=== PATIENT | female | born 1995 | race Caucasian/White ===

== ENCOUNTER 2020-02-22 15:07 | Emergency (ER) | payer OTHER, SELFPAY ==
[2020-02-22 15:24] VITALS: BP 105/74; PULSE 84; RESP 19; TEMP 36.6; O2SAT 98; BMI 23.3
--- NOTE | 2020-02-22 15:33 | HMH.EDUTC ---
[facility] [place] Disposition Clinical Impression: Bacterial vaginosis Disposition: Home, Self-Care Condition on Discharge: Good Instructions: Bacterial Vaginosis, DI for Bacterial Vaginosis, Metronidazole Vaginal Additional Instructions: Use medication as prescribed FOllow up with family doctor if no improvment or any worsening of symptoms in the next 48-72 hours Return if needed Straight to ER if any life threatening symptoms Prescriptions: metroNIDAZOLE [Metrogel-Vaginal] 1 applicatio VG DAILY 5 Days #1 tube Transmission Status: Pending to [facility] Referrals: Kip Bingham MD [Primary Care Provider] - As needed Time of Disposition: 15:38 Medical Decision Making - Harlan Inquiry Pt receiving controlled substance: No Harlan was queried for this patient: No Vital Signs: 02/22/20 15:24 Temperature 97.9 F Temperature Source Temporal Artery Scan Pulse Rate [Right Brachial] 84 Respiratory Rate 19 Blood Pressure [Right Arm] 105/74 L Blood Pressure Mean [Right Arm] 84 Blood Pressure Source [Right Arm] Automatic Cuff Blood Pressure Position [Right Arm] Sitting 02 Sat by Pulse Oximetry 98 Oxygen Delivery Method Room Air Medical Decision Narrative: Patient requested Metroidazole vaginal gel instead of oral due to making her stomach upset [facility] [place] HPI - General Stated complaint: Personal Time Seen by Provider: 02/22/20 15:33 Mode of Arrival: Ambulatory Source of Information: Patient Limitations: No Limitations Description of Symptoms (Recalled from Triage Doc. by RN): possible bacterial vaginal infection HEENT Symptoms (Recalled from RN notes): No Resp Symptoms (Recalled from RN notes): No Skin Symptoms (Recalled from RN notes): No MS Symptoms (Recalled from RN notes): No Functional Status (Recalled from RN notes): none - History of Present Illness Provider Complaint: Patient states thats she has a history of bacterail Vaginosis States that she has been having irritation in her vaginal areas for several days after changing soaps and noticed she had a fishy like odor with grayish colored discharge so she came in to get checked - Related Data Previous Rx's Medication Instructions Recorded metroNIDAZOLE [Metrogel-Vaginal] 1 applicatio VG DAILY 5 Days #1 02/22/20 tube Allergies Allergy/AdvReac Type Severity Reaction Status Date / Time No Known Allergies Allergy Verified 02/22/20 15:14 - Worker's Comp Is this a Worker's Comp case?: No [facility] History - Hepatitis A Screen Drug use history?: No High risk sexual behaviors?: No History of sexually transmitted infection?: No Currently employed?: No Childcare worker?: No Do you have indoor plumbing?: Yes Do you have electricity?: Yes Attestation statement:: This patient has been screened for Hepatitis A risk factors. I have reviewed the patient's past medical history: Yes Medical History: Denies:: Cancer, Diabetes Mellitus Type 1, Diabetes Mellitus Type 2, Internal Pacemaker, MRSA Other Surgeries: No: Pacemaker Amputation: No Fractures: No - Social History Smoking Status: Current every day smoker Tobacco Type: cigarettes # Packs/Day (cigarettes): 1 Alcohol Intake: never Occupational Status: employed ROS Obtained: Yes All systems reviewed & no additional complaints, Yes Systems reviewed as appropriate & no additional complaints - Constitutional Constitutional: Reports system reviewed and no additional complaints, except as docu - Cardiovascular Cardiovascular: Reports system reviewed and no additional complaints, except as docu - Respiratory Respiratory: Yes system reviewed and no additional complaints, except as docu - Gastrointestinal Gastrointestingal: Reports: system reviewed and no additional complaints, except as docu - Genitourinary Female Genitourinary: Reports vaginal discharge, Reports vaginal itching Physical Exam - General General appearance: alert, in no apparent distress - Respiratory Respiratory e
[2020-02-22 15:39] VITALS: BP 105/74; PULSE 84; RESP 18; TEMP 36.6; O2SAT 98
== END 2020-02-22 15:40 | disposition home or self-care (01) ==
PROVIDERS: Emergency Provider Nurse Practitioner; PCP Family Medicine
DX: N76.0 Acute vaginitis (principal)
CPT/HCPCS: 99201

== ENCOUNTER 2020-06-12 18:24 | Emergency (ER) | payer OTHER, SELFPAY ==
[2020-06-12 19:20] VITALS: BP 103/86; PULSE 69; RESP 19; TEMP 36.9; O2SAT 98; BMI 23.9
--- NOTE | 2020-06-12 19:32 | HMH.EDUTC ---
[facility] [place] Disposition Clinical Impression: Viral syndrome, Bronchitis Disposition: Home, Self-Care Condition on Discharge: Good Instructions: Acute Bronchitis, DI for Acute Bronchitis, DI for Viral Syndrome Prescriptions: Azithromycin [Z-Acosta 250mg Tab*] 250 mg PO UD DOSE PK #6 tab Transmission Status: Received by [facility] #[id number] Referrals: Kip Bingham MD [Primary Care Provider] - Forms: Work/School Release Medical Decision Making - Medical Records Medical records reviewed: No: I reviewed the patient's medical records. - Harlan Inquiry Pt receiving controlled substance: No Vital Signs: 06/12/20 19:20 06/12/20 19:58 Temperature 98.5 F 98.5 F Temperature Source Oral Pulse Rate 69 Pulse Rate [Right Brachial] 69 Respiratory Rate 19 19 Blood Pressure 103/86 L Blood Pressure [Right Arm] 103/86 L Blood Pressure Mean [Right Arm] 91 Blood Pressure Source [Right Arm] Automatic Cuff Blood Pressure Position [Right Arm] Sitting 02 Sat by Pulse Oximetry 98 Oxygen Delivery Method Room Air - Lab Data Lab results reviewed: Yes: I reviewed the patient's lab results. Lab Results 06/12/20 19:33: [facility] Negative Orders (Tests/Meds): ORDERS Category Date Time Status Covid-19 Nasal PCR Sendout Nic Routine Lab 06/12/20 19:07 Received [facility] [place] HPI - General Stated complaint: weakness,Diarrhea, want COVID test Time Seen by Provider: 06/12/20 19:25 Mode of Arrival: Ambulatory Source of Information: Patient Limitations: No Limitations Description of Symptoms (Recalled from Triage Doc. by RN): PATIENT C/O SORE THROAT, COUGH, FATIGUE, AND SOA X 2 DAYS. REQUESTING COVID TEST HEENT Symptoms (Recalled from RN notes): Yes Resp Symptoms (Recalled from RN notes): Yes Skin Symptoms (Recalled from RN notes): No MS Symptoms (Recalled from RN notes): No Functional Status (Recalled from RN notes): WNL - History of Present Illness Provider Complaint: She reports that she has had cough, chest congestion, nausea, sore throat, body aches and chilling for the past 2 days. She has been exposed to covid recently. She denies documented fever. - Related Data Previous Rx's Medication Instructions Recorded Azithromycin [Z-Acosta 250mg Tab*] 250 mg PO UD DOSE PK #6 tab 06/12/20 Allergies Allergy/AdvReac Type Severity Reaction Status Date / Time No Known Allergies Allergy Verified 02/23/20 09:39 - Worker's Comp Is this a Worker's Comp case?: No [facility] History - Hepatitis A Screen Drug use history?: No High risk sexual behaviors?: No History of sexually transmitted infection?: No Currently employed?: No Childcare worker?: No Do you have indoor plumbing?: Yes Do you have electricity?: Yes Attestation statement:: This patient has been screened for Hepatitis A risk factors. I have reviewed the patient's past medical history: Yes Medical History: Denies:: Cancer, Diabetes Mellitus Type 1, Diabetes Mellitus Type 2, Internal Pacemaker, MRSA Other Surgeries: No: Pacemaker Amputation: No Fractures: No - Social History Smoking Status: Current every day smoker Tobacco Type: cigarettes # Packs/Day (cigarettes): 1 Alcohol Intake: never Substance Use Type: denies use, marijuana (in the past; had serenity; never used it again; not since right out of high school) Occupational Status: other ROS Obtained: Yes All systems reviewed & no additional complaints - Constitutional Constitutional: Reports chills, Reports fever(s), Reports poor appetite, Reports malaise - Eyes Eyes: Reports system reviewed and no additional complaints, except as docu - ENT Ears, Nose, Mouth, and Throat: Denies dizziness, Denies otalgia, Reports sore throat - Cardiovascular Cardiovascular: Denies chest pain - Respiratory Respiratory: Yes chest congestion, Yes cough Physical Exam - General General appearance: alert, in no apparent distress - Head Head exam: atraumatic, normocephalic, norm
[2020-06-12 19:42] LABS: UTC Pregnancy Test, Urine Negative (Negative)
[2020-06-12 19:58] VITALS: BP 103/86; PULSE 69; RESP 19; TEMP 36.9; O2SAT 98
[2020-06-14 17:32] LABS: Covid-19 Nasal PCR Sendout Lex Not Detected
== END 2020-06-12 20:00 | disposition home or self-care (01) ==
PROVIDERS: Emergency Provider Nurse Practitioner Family; PCP Family Medicine
DX: B34.9 Viral infection, unspecified (principal); J40 Bronchitis, not specified as acute or chronic
CPT/HCPCS: 81025; 99201; U0004

== ENCOUNTER → 2020-07-10 20:23 | Outpatient (CLI) | payer OTHER, SELFPAY ==
[2020-07-10 21:03] LABS: Basophils # 0.1 K/mm3 (0-0.2); Basophils % 0.7 % (0.1-2.0); Eosinophils # 0.1 K/mm3 (0.0-0.4); Eosinophils % 1.3 % (0.1-12.0); Hematocrit 48.7 % (37.0-47.0); Hemoglobin 15.9 g/dL (12.2-16.2); Lymphocytes # 2.3 K/mm3 (0.7-4.5); Lymphocytes % 23.4 % (10-50); Mean Corpuscular HGB Conc 32.6 g/dL (31.8-35.4); Mean Corpuscular Hemoglobin 30.7 pg (27.0-31.2); Mean Corpuscular Volume 94.4 fl (81-99); Mean Platelet Volume 7.9 fl (7.4-10.4); Monocytes # 0.6 K/mm3 (0.1-1.0); Monocytes % 5.6 % (1.7-9.3); Neutrophils # 6.7 K/mm3 (1.8-7.8); Neutrophils % 68.8 % (37.0-80.0); Platelet Count 331 K/mm3 (142-424); Red Blood Count 5.16 M/mm3 (4.20-5.40); Red Cell Distribution Width 12.7 % (11.5-17.5); White Blood Count 9.7 K/mm3 (4.8-10.8)
[2020-07-12 09:45] LABS: Covid-19 Nasal PCR Sendout Lex NOT DETECTED
== END ==
PROVIDERS: PCP Family Medicine; Visit Provider Family Medicine
DX: Z03.818 Encounter for observation for suspected exposure to other biological agents ruled out (principal)
CPT/HCPCS: 36415; 85025; 87275; 87276; U0004

== ENCOUNTER 2020-08-28 11:47 | Emergency (ER) | payer OTHER, SELFPAY ==
[2020-08-28 12:20] VITALS: BP 111/79; PULSE 78; RESP 18; TEMP 36.6; O2SAT 98; BMI 24.3
--- NOTE | 2020-08-28 12:40 | HMH.EDUTC ---
[facility] [place] Disposition Clinical Impression: Positive test Disposition: Home, Self-Care Condition on Discharge: Good Instructions: Eating for Appropriate Weight Gain During , Common Discomforts and Bodily Changes During , Skin: Glowing, Stretching, Darkening, and More, Managing Symptoms of Additional Instructions: Call and make appointment with your OBGYN for further work up and evaluation Return if needed Straight to ER if any life threatening symptoms, spotting or bleeding Referrals: PCP,No [Primary Care Provider] - As needed Mohamud Pizano MD [Staff Physician] - Serina Mensah MD [Staff Physician] - Time of Disposition: 12:45 Medical Decision Making - Harlan Inquiry Pt receiving controlled substance: No Harlan was queried for this patient: No Vital Signs: 08/28/20 12:20 Temperature 97.8 F Temperature Source Oral Pulse Rate [Right Brachial] 78 Respiratory Rate 18 Blood Pressure [Right Arm] 111/79 Blood Pressure Mean [Right Arm] 89 Blood Pressure Source [Right Arm] Automatic Cuff Blood Pressure Position [Right Arm] Sitting 02 Sat by Pulse Oximetry 98 Oxygen Delivery Method Room Air [facility] [place] HPI - General Stated complaint: test Time Seen by Provider: 08/28/20 12:41 Mode of Arrival: Ambulatory Source of Information: Patient Limitations: No Limitations Description of Symptoms (Recalled from Triage Doc. by RN): PATIENT IS 19 DAYS LATE ON HER PERIOD AND IS REQUESTING A TEST HEENT Symptoms (Recalled from RN notes): No Resp Symptoms (Recalled from RN notes): No Skin Symptoms (Recalled from RN notes): No MS Symptoms (Recalled from RN notes): No Functional Status (Recalled from RN notes): WNL - History of Present Illness Provider Complaint: Patient state that she is about 19 days late on her period and took 3 home test and they was positive State that she wasnt sure if they was right so she came in to get one here to see if it was positive too - Related Data Previous Rx's Medication Instructions Recorded Azithromycin [Z-Aocsta 250mg Tab*] 250 mg PO UD DOSE PK #6 tab 06/12/20 Allergies Allergy/AdvReac Type Severity Reaction Status Date / Time No Known Allergies Allergy Verified 02/23/20 09:39 - Worker's Comp Is this a Worker's Comp case?: No [facility] History - Hepatitis A Screen Drug use history?: No High risk sexual behaviors?: No History of sexually transmitted infection?: No Currently employed?: No Childcare worker?: No Do you have indoor plumbing?: Yes Do you have electricity?: Yes Attestation statement:: This patient has been screened for Hepatitis A risk factors. I have reviewed the patient's past medical history: Yes Medical History: Denies:: Cancer, Diabetes Mellitus Type 1, Diabetes Mellitus Type 2, Internal Pacemaker, MRSA Other Surgeries: No: Pacemaker Amputation: No Fractures: No - Social History Smoking Status: Current every day smoker Tobacco Type: cigarettes # Packs/Day (cigarettes): 1 Alcohol Intake: never Substance Use Type: denies use, marijuana (in the past; had serenity; never used it again; not since right out of high school) Occupational Status: other ROS Obtained: Yes All systems reviewed & no additional complaints, Yes Systems reviewed as appropriate & no additional complaints - Constitutional Constitutional: Reports system reviewed and no additional complaints, except as docu, Denies body ache, Denies chills, Denies fever(s), Denies headache(s) - ENT Ears, Nose, Mouth, and Throat: Reports system reviewed and no additional complaints, except as docu - Cardiovascular Cardiovascular: Reports system reviewed and no additional complaints, except as docu - Respiratory Respiratory: Reports system reviewed and no additional complaints, except as docu - Gastrointestinal Gastrointestingal: Reports: system reviewed and no additional complaints, except as docu - Genitourinary Female Genitouri
[2020-08-28 12:50] VITALS: BP 111/79; PULSE 78; RESP 18; TEMP 36.6; O2SAT 98
[2020-08-28 20:25] LABS: UTC Pregnancy Test, Urine Positive (Negative)
== END 2020-08-28 12:52 | disposition home or self-care (01) ==
PROVIDERS: Emergency Provider Nurse Practitioner
DX: Z32.01 Encounter for pregnancy test, result positive (principal); F17.210 Nicotine dependence, cigarettes, uncomplicated
CPT/HCPCS: 81025; 99202; G0463

== ENCOUNTER → 2020-09-06 10:49 | Outpatient (CLI) | payer OTHER, MEDICAID, SELFPAY ==
--- NOTE | 2020-09-06 10:49 | US_ITS ---
PROCEDURE: US OB <= 14 WEEKS FETUS CLINICAL INDICATION: US OB TV before 14 weeks for DATES COMPARISON: No exams were available for comparison FINDINGS: An intrauterine gestational sac is present with a pole with a crown-rump length of 1.33cm correlating to gestational age of 7weeks 5days. heart tones are present with an FHR of 160bpm. Yolk sac is noted. There is a small left ovarian cyst at 12 mm. No cul-de-sac fluid. IMPRESSION: Live IUP at 7 weeks days Estimated due date by Ultrasound is 04/20/2021 Dictated by: Saroj Jenkins MD 09/06/2020 18:43 Saroj Jenkins MD in [place] 09/06/2020 18:43
== END ==
PROVIDERS: PCP Family Medicine; Visit Provider Nurse Practitioner Obstetrics & Gynecology
DX: O26.841 Uterine size-date discrepancy, first trimester (principal)
CPT/HCPCS: 76801

== ENCOUNTER 2020-09-27 20:45 | Emergency (ER) | payer OTHER, MEDICAID, SELFPAY ==
[2020-09-27 20:47] VITALS: BP 126/64; PULSE 92; RESP 16; TEMP 36.8; O2SAT 100; BMI 24.7
--- NOTE | 2020-09-27 21:04 | HMH.EDUTC ---
[facility] [place] Disposition Clinical Impression: Viral syndrome Qualifiers: Weeks of gestation: 10 weeks Qualified Code(s): Z3A.10 - 10 weeks gestation of Disposition: Home, Self-Care Condition on Discharge: Good Instructions: DI for Viral Syndrome, Preventing the Spread of Coronavirus Discharge Instructions Additional Instructions: Drink plenty of fluids. Take tylenol for pain or fever. Return if you begin to have difficulty breathing. Follow up with your regular doctor. FOLLOW UP WITH DR. PEREA SCHEDULED, UNLESS YOU ARE POSITIVE FOR COVID-19. IF YOU ARE PLEASE CALL DR. PEREA'S OFFICE TO LET HIM KNOW AYAAN. GO TO THE ER FOR ANY WORSENING SYMPTOMS Prescriptions: Promethazine HCl [Phenergan 25mg tab] 25 mg PO Q6H PRN #10 tab PRN Reason: Nausea And Vomiting Transmission Status: Pending to [id number] Referrals: Kip Bingham MD [Primary Care Provider] - Forms: Work/School Release Time of Disposition: 21:08 Medical Decision Making - Medical Records Medical records reviewed: No: I reviewed the patient's medical records. - Harlan Inquiry Pt receiving controlled substance: No Vital Signs: 09/27/20 20:47 Temperature 98.2 F Temperature Source Oral Pulse Rate [Right] 92 H Respiratory Rate 16 Blood Pressure [Right Arm] 126/64 Blood Pressure Mean [Right Arm] 84 Blood Pressure Source [Right Arm] Automatic Cuff Blood Pressure Position [Right Arm] Sitting 02 Sat by Pulse Oximetry 100 Oxygen Delivery Method Room Air Orders (Tests/Meds): ORDERS Category Date Time Status Covid-19 Nasal PCR ([facility]) Routine Lab 09/27/20 21:03 Ordered [facility] [place] HPI - General Stated complaint: 10 wk preg VILLAN[place]VA Time Seen by Provider: 09/27/20 21:00 Mode of Arrival: Ambulatory Source of Information: Patient Limitations: No Limitations HEENT Symptoms (Recalled from RN notes): No Resp Symptoms (Recalled from RN notes): No Skin Symptoms (Recalled from RN notes): No MS Symptoms (Recalled from RN notes): No Functional Status (Recalled from RN notes): na - History of Present Illness Provider Complaint: She states that she has been having and head ache, body ache and chills since yesterday evening. She has been exposed to covid-19. She denies any other symptoms. She is 10 weeks . - Related Data Previous Rx's Medication Instructions Recorded PNV 153-FA 400 mcg-om3 35 mg-dha 1 tab PO DAILY #30 tab 08/31/20 25 mg-epa 5 mg-fish oil chew tablet Promethazine HCl [Phenergan 25mg 25 mg PO Q6H PRN #10 tab 09/27/20 tab] Allergies Allergy/AdvReac Type Severity Reaction Status Date / Time No Known Allergies Allergy Verified 08/31/20 11:07 - Worker's Comp Is this a Worker's Comp case?: No [facility] History - Hepatitis A Screen Drug use history?: No High risk sexual behaviors?: No History of sexually transmitted infection?: No Currently employed?: No Childcare worker?: No Do you have indoor plumbing?: Yes Do you have electricity?: Yes Attestation statement:: This patient has been screened for Hepatitis A risk factors. I have reviewed the patient's past medical history: Yes Medical History: Reports:: Anxiety, Depression Denies:: Cancer, Diabetes Mellitus Type 1, Diabetes Mellitus Type 2, Internal Pacemaker, MRSA Other Surgeries: No: Pacemaker Amputation: No Fractures: No - Social History Smoking Status: Current every day smoker Tobacco Type: cigarettes # Packs/Day (cigarettes): 1 Alcohol Intake: never Substance Use Type: denies use, marijuana Occupational Status: other - Psychiatric History Pschychiatric History:: Reports:: Anxiety, Depression Family Hx:: No significant family history ROS Obtained: Yes All systems reviewed & no additional complaints - Constitutional Constitutional: Reports body ache, Reports chills, Denies fever(s), Reports poor appetite, Reports malaise - Eyes Eyes: Denies eye discharge - ENT Ears, Nose, Mouth, and Thro
[2020-09-27 21:17] VITALS: BP 126/64; PULSE 90; RESP 16; TEMP 36.8; O2SAT 98
== END 2020-09-27 21:17 | disposition home or self-care (01) ==
PROVIDERS: Emergency Provider Nurse Practitioner Family; PCP Family Medicine
DX: Z20.822 Contact with and (suspected) exposure to COVID-19 (principal); Z3A.10 10 weeks gestation of pregnancy; F41.8 Other specified anxiety disorders; F17.210 Nicotine dependence, cigarettes, uncomplicated
CPT/HCPCS: 99202; G0463; U0003

== ENCOUNTER → 2020-10-16 11:18 | Outpatient (CLI) | payer OTHER, MEDICAID, SELFPAY | PROVIDERS: Visit Provider Nurse Practitioner Obstetrics & Gynecology | DX: Z36.0 Encounter for antenatal screening for chromosomal anomalies (principal) | CPT/HCPCS: 36415 ==

== ENCOUNTER → 2020-11-26 11:07 | Outpatient (CLI) | payer MEDICAID, SELFPAY ==
[2020-11-26 11:48] LABS: Basophils # 0.1 K/mm3 (0-0.2); Basophils % 0.5 % (0.1-2.0); Eosinophils # 0.1 K/mm3 (0.0-0.4); Eosinophils % 0.8 % (0.1-12.0); Hematocrit 35.9 % (37.0-47.0); Hemoglobin 12.3 g/dL (12.2-16.2); Lymphocytes # 2.5 K/mm3 (0.7-4.5); Mean Corpuscular HGB Conc 34.2 g/dL (31.8-35.4); Mean Corpuscular Hemoglobin 31.2 pg (27.0-31.2); Mean Corpuscular Volume 91.1 fl (81-99); Mean Platelet Volume 7.5 fl (7.4-10.4); Monocytes # 0.5 K/mm3 (0.1-1.0); Monocytes % 3.4 % (1.7-9.3); Neutrophils # 10.7 K/mm3 (1.8-7.8); Neutrophils % 77.4 % (37.0-80.0); Platelet Count 298 K/mm3 (142-424); Red Blood Count 3.94 M/mm3 (4.20-5.40); Red Cell Distribution Width 13.1 % (11.5-17.5); White Blood Count 13.9 K/mm3 (4.8-10.8)
[2020-11-27 08:16] LABS: HIV Screen 4th Generation wRfx Non Reactive (Non Reactive)
[2020-11-27 12:36] LABS: Hepatitis B Surface Antigen Negative (Negative); Hepatitis C Antibody <0.1 s/co ratio (0.0-0.9); Rapid Plasma Reagin Ab Titer Non Reactive (NonRea<1:1); Rubella Antibodies, IgG <0.90 index (Immune >0.99)
== END ==
PROVIDERS: Visit Provider Nurse Practitioner Obstetrics & Gynecology
DX: Z34.90 Encounter for supervision of normal pregnancy, unspecified, unspecified trimester (principal)
CPT/HCPCS: 36415; 85025; 86592; 86703; 86762; 86850; 87340; 87380; G0432

== ENCOUNTER 2020-11-28 14:59 | Emergency (ER) | payer MEDICAID, SELFPAY ==
[2020-11-28 15:05] VITALS: PULSE 78; RESP 19; O2SAT 98; BMI 24.4
--- NOTE | 2020-11-28 15:54 | HMH.EDUTC ---
[facility] Disposition Clinical Impression: Bacterial vaginosis in Disposition: Home, Self-Care Condition on Discharge: Good Instructions: Bacterial Vaginosis, DI for Bacterial Vaginosis, Metronidazole Vaginal Additional Instructions: Use MetroGel as prescribed Follow up with Dr Pizano for further treatment and evaluation Return if needed Straight to ER if any life threatening symptoms Prescriptions: metroNIDAZOLE [Metrogel-Vaginal] 1 appful VG HS #1 gel.w.appl Transmission Status: Received by [id number] Referrals: Kip Bingham MD [Primary Care Provider] - As needed Time of Disposition: 16:05 Medical Decision Making - Harlan Inquiry Pt receiving controlled substance: No Harlan was queried for this patient: No Vital Signs: 11/28/20 15:05 11/28/20 16:10 Temperature 98.3 F Temperature Source Oral Oral Pulse Rate 78 Pulse Rate [Right Brachial] 78 Respiratory Rate 19 19 Blood Pressure 109/65 L Blood Pressure Source Automatic Cuff Blood Pressure Source [Right Arm] Automatic Cuff Blood Pressure Position Sitting Blood Pressure Position [Right Arm] Sitting 02 Sat by Pulse Oximetry 98 Oxygen Delivery Method Room Air Room Air - Lab Data Lab results reviewed: Yes: I reviewed the patient's lab results. Lab Results 11/28/20 15:50: Urine Color Yellow, Urine Appearance Clear, Urine pH 7.5, Ur Specific [place] 1.020, Urine Protein Negative, Urine Glucose (UA) Negative, Urine Ketones Negative, Urine Blood Negative, Urine Nitrate Negative, Urine Bilirubin Negative, Urine Urobilinogen 0.2, Ur Leukocyte Esterase Negative, Urine RBC None, Urine WBC 5-10, Ur Squamous Epith Cells 20-50, Urine Bacteria 2+ Orders (Tests/Meds): ORDERS Category Date Time Status Urine Culture Stat Micro 11/28/20 15:50 Received - Physician Consults Physician Consulted: Harinder Time: 15:54 Reason -: Obstetrical Eval/Care Comment/Response: Discussed with Dr Pizano and he advised ok to use MetroGel Qhs x 5 days due to patient reports that the pills makes her sick at her stomach and if possible test also for other STD's Urine collected and sent to lab [facility] HPI - General Stated complaint: infection-female area Time Seen by Provider: 11/28/20 15:54 Mode of Arrival: Ambulatory Source of Information: Patient Limitations: No Limitations Description of Symptoms (Recalled from Triage Doc. by RN): Patient reports shs think she has an vaginal infection HEENT Symptoms (Recalled from RN notes): No Resp Symptoms (Recalled from RN notes): No Skin Symptoms (Recalled from RN notes): No MS Symptoms (Recalled from RN notes): No Functional Status (Recalled from RN notes): wnl - History of Present Illness Provider Complaint: Patient states that she was seen by Dr Pizano about a week ago for Vaginal yeast infection State that since then she noticed her discharge started having a fishy odor like it did before when she had bacterial vaginosis States that she googled it and seen where if it was left untreated she may have a miscarriage States that she called Dr Amado office and left a message but didnt want to wait for call back so she came on in to get treated - Related Data Previous Rx's Medication Instructions Recorded Promethazine HCl [Phenergan 25mg 25 mg PO Q6H PRN #10 tab 09/27/20 tab] ferrous sulfate 325 mg (65 mg 325 mg PO DAILY #30 tab 11/12/20 iron) tablet vits no.126-ferrous fum 1 tab PO DAILY #30 tab 11/12/20 28 mg iron-folic acid 800 mcg tablet terconazole 0.4 % vaginal cream 1 appful VAGINAL HS 7 Days #45 g 11/12/20 metroNIDAZOLE [Metrogel-Vaginal] 1 appful VG HS #1 gel.w.appl 11/28/20 Allergies Allergy/AdvReac Type Severity Reaction Status Date / Time No Known Allergies Allergy Verified 11/12/20 16:24 - Worker's Comp Is this a Worker's Comp case?: No H History - Hepatitis A Screen Drug use history?: No High risk sexual behaviors?: No History of sexually
[2020-11-28 15:59] LABS: Microscopic, Urine URINE MICROSCOPIC (MICROSCOPIC)
[2020-11-28 16:06] LABS: Appearance,Urine CLEAR (Clear); Bilirubin,Urine Negative (Negative); Blood, Urine Negative (Negative); Color,Urine YELLOW (Yellow); Glucose,Urine (UA) Negative (Negative); Ketones,Urine Negative (Negative); Leukocyte Esterase,Urine Negative (Negative); Nitrate,Urine Negative (Negative); PH,Urine 7.5 (5.0-8.5); Protein,Urine Negative (Negative); Urobilinogen,Urine 0.2 EU/dl (0.2)
[2020-11-28 16:10] VITALS: BP 109/65; PULSE 78; RESP 19; TEMP 36.8; O2SAT 98
[2020-11-28 16:27] LABS: Squamous Epithelial Cell,Urine 20-50 #/hpf (0-5)
[2020-11-28 16:28] LABS: Bacteria,Urine 2+ /lpf
[2020-12-01 08:57] LABS: Neisseria gonorrhoeae, NAA Negative (Negative)
== END 2020-11-28 16:10 | disposition home or self-care (01) ==
PROVIDERS: Emergency Provider Nurse Practitioner; PCP Family Medicine
DX: O23.592 Infection of other part of genital tract in pregnancy, second trimester (principal); Z3A.19 19 weeks gestation of pregnancy; F17.210 Nicotine dependence, cigarettes, uncomplicated
CPT/HCPCS: 81001; 87086; 87491; 87591; 99202; G0463

== ENCOUNTER → 2020-12-03 10:37 | Outpatient (CLI) | payer MEDICAID, SELFPAY ==
--- NOTE | 2020-12-03 10:37 | US_ITS ---
PROCEDURE: US OB /MATERNAL DETAIL CLINICAL INDICATION: 20 week gestation Anatomy exam COMPARISON: US US OB <= 14 WEEKS FETUS from 09/06/2020 FINDINGS: There is a single live intrauterine gestation which is in breech presentation. The placenta is anterior and grade 1. The cervix is closed and measures 3 cm. Complete survey performed and was unremarkable on the submitted images as in PACS. No discrete anomalies identified on survey imaging by technologist. Active fetus. Three-vessel cord with satisfactory umbilical cord insertion. 4- chamber heart noted. Survey of brain & ventricles Unremarkable. Face and neck survey unremarkable. Diaphragm and chest views unremarkable. Abdomen: Both kidneys noted and unremarkable. Stomach noted and satisfactory. Spine: Survey of the spine satisfactory with no anomalies identified nor imaged. Both arms and legs noted. Amniotic Fluid: Adequate. Maternal adnexa: No significant findings. Measurements: Average ultrasound age 20weeks 1day. Gestational Age 20weeks 2days Estimated due date by ultrasound age 0904/21/2021. Estimated weight 341g BPD = 20weeks 2days OFD = 20weeks 2days HC = 19weeks 4days AC = 20weeks 2days FL = 20weeks 3days Growth Percentile= 42Percent% Heart Rate = 153bpm Cerebellum = 19weeks 6days Humerus = 20weeks 3days HC/AC is 1.12 CI is 0.8 FL/BPD is 0.71 FL/AC is 0.22 IMPRESSION: Live IUP in breech presentation with an average ultrasound age of 20 weeks 1 day. No obvious anomalies. Please see above for detail. Dictated by: Saroj Jenkins MD 12/04/2020 06:46 Saroj Jenkins MD in [place] 12/04/2020 06:46
== END ==
PROVIDERS: PCP Family Medicine; Visit Provider Nurse Practitioner Obstetrics & Gynecology
DX: Z34.90 Encounter for supervision of normal pregnancy, unspecified, unspecified trimester (principal); Z3A.20 20 weeks gestation of pregnancy
CPT/HCPCS: 76811

== ENCOUNTER 2021-01-04 12:55 | Outpatient (CLI) | payer MEDICAID, SELFPAY ==
[2021-01-04 13:07] VITALS: BMI 25.1
[2021-01-04 13:15] VITALS: BP 124/69; PULSE 92; RESP 16; TEMP 37; O2SAT 98; BMI 251513.6
== END 2021-01-04 14:16 | disposition home or self-care (01) ==
LOC: OBOUT 12:56 → OB 12:58
PROVIDERS: Visit Provider Obstetrics & Gynecology
DX: O36.8120 Decreased fetal movements, second trimester, not applicable or unspecified (principal); Z3A.24 24 weeks gestation of pregnancy; R10.9 Unspecified abdominal pain
CPT/HCPCS: 59025; G0463

== ENCOUNTER 2021-02-11 23:32 | Outpatient (CLI) | payer MEDICAID, SELFPAY ==
[2021-02-11 23:58] VITALS: BMI 25.4
[2021-02-12] VITALS: BP 112/63; PULSE 91; RESP 18; TEMP 36.9; O2SAT 100; BMI 25.4
[2021-02-12 00:06] LABS: Microscopic, Urine URINE MICROSCOPIC (MICROSCOPIC)
[2021-02-12 00:09] LABS: Appearance,Urine CLEAR (Clear); Bilirubin,Urine Negative (Negative); Blood, Urine Negative (Negative); Color,Urine YELLOW (Yellow); Glucose,Urine (UA) Negative (Negative); Ketones,Urine Negative (Negative); Leukocyte Esterase,Urine 2+ (Negative); Nitrate,Urine Negative (Negative); Protein,Urine Negative (Negative); Urobilinogen,Urine 0.2 EU/dl (0.2)
[2021-02-12 00:23] LABS: Amphetamine/Metha Screen,Urine Negative ng/ml (<1000); Benzodiazepines Screen,Urine Negative ng/ml (<200)
[2021-02-12 00:24] LABS: Barbiturates Screen,Urine Negative ng/ml (<200)
[2021-02-12 00:25] LABS: Cannabinoid Screen,Urine Negative ng/ml (<50); Cocaine Screen,Urine Negative ng/ml (<300)
[2021-02-12 00:26] LABS: Methadone Screen,Urine Negative ng/ml (<300); Opiate Screen,Urine Negative ng/ml (<300)
[2021-02-12 00:27] LABS: Phencyclidine Screen,Urine Negative ng/ml (<25)
[2021-02-12 00:32] LABS: WBC,Urine TNTC #/hpf (0-3)
[2021-02-12 00:33] LABS: Yeast,Urine 3+ /lpf
[2021-02-12 01:19] LABS: Fetal Fibronectin (Rapid) Negative (Negative)
== END 2021-02-12 01:35 | disposition home or self-care (01) ==
LOC: OBOUT 23:36 → OB 23:37
PROVIDERS: PCP Nurse Practitioner Obstetrics & Gynecology; Visit Provider Nurse Practitioner Obstetrics & Gynecology
DX: O26.893 Other specified pregnancy related conditions, third trimester (principal); Z3A.30 30 weeks gestation of pregnancy; R10.2 Pelvic and perineal pain
CPT/HCPCS: 59025; 80305; 81001; 82731; 87086; 87088; 87186; G0463

== ENCOUNTER → 2021-03-21 18:57 | Outpatient (CLI) | payer MEDICAID, SELFPAY | LOC: LAB 18:59 → LAB.DROPOF 19:27 | PROVIDERS: Visit Provider Nurse Practitioner Obstetrics & Gynecology | DX: Z34.90 Encounter for supervision of normal pregnancy, unspecified, unspecified trimester (principal) | CPT/HCPCS: 86403 ==

== ENCOUNTER → 2021-03-25 08:59 | Outpatient (CLI) | payer MEDICAID, SELFPAY ==
--- NOTE | 2021-03-25 08:59 | US_ITS ---
PROCEDURE: US OB BIOPHYSICAL PROFILE CLINICAL INDICATION: sga Small for gestational age TECHNIQUE: FINDINGS: The following parameters are obtained: Average ultrasound age is Average 34weeks 6days Estimated due date by ultrasound is 04/30/2021. Estimated weight is 2,518g. This is 16th percentile. The cervix is closed and measures 3 cm. The fetus is in cephalic position. heart body motion noted. The placenta is anterior and grade 2 BPD: 35weeks 6days OFD: 35weeks 6days HC: 31.1cm AC: 30.8cm FL: 6.8cm heart rate: 142bpm bpm. HC/AC: 1.01 Cephalic index: 0.78 FL/BPD: 0.79 FL/AC: 0.22 Amniotic fluid index: 10.66cm Qualitative AFV: 2 breathing movements: 2 Gross body movements: 2 Tone: 2 Biophysical profile score: 8 IMPRESSION: Live IUP which is in cephalic presentation with an average ultrasound age of 34 weeks 6 days. Estimated weight is 2518 g which is 16th percentile. Biophysical profile 8 of 8 with normal amniotic fluid index Dictated by: Saroj Jenkins MD 03/25/2021 10:46 Saroj Jenkins MD in [place] 03/25/2021 10:46
== END ==
PROVIDERS: PCP Nurse Practitioner Obstetrics & Gynecology; Visit Provider Nurse Practitioner Obstetrics & Gynecology
DX: O36.5990 Maternal care for other known or suspected poor fetal growth, unspecified trimester, not applicable or unspecified (principal)
CPT/HCPCS: 76816; 76819

== ENCOUNTER → 2021-04-09 22:04 | Outpatient (CLI) | payer MEDICAID, SELFPAY | PROVIDERS: Visit Provider Nurse Practitioner Family | DX: Z20.822 Contact with and (suspected) exposure to COVID-19 (principal); U07.1 COVID-19; R05 Cough | CPT/HCPCS: U0003 ==

== ENCOUNTER → 2021-04-20 12:48 | Outpatient (CLI) | payer MEDICAID, SELFPAY | PROVIDERS: Visit Provider Nurse Practitioner Obstetrics & Gynecology | DX: Z34.90 Encounter for supervision of normal pregnancy, unspecified, unspecified trimester (principal) | CPT/HCPCS: C9803; U0003; U0005 ==

== ENCOUNTER 2021-04-22 06:03 | Inpatient (IN) | payer MEDICAID, SELFPAY ==
[2021-04-22 07:13] VITALS: BMI 22.3
[2021-04-22 07:55] LABS: Basophils % 0.3 % (0.1-2.0); Eosinophils # 0.1 K/mm3 (0.0-0.4); Eosinophils % 0.5 % (0.1-12.0); Hematocrit 31.9 % (37.0-47.0); Hemoglobin 10.6 g/dL (12.2-16.2); Lymphocytes # 2.2 K/mm3 (0.7-4.5); Lymphocytes % 17.1 % (10-50); Mean Corpuscular HGB Conc 33.2 g/dL (31.8-35.4); Mean Corpuscular Hemoglobin 31.5 pg (27.0-31.2); Mean Platelet Volume 7.6 fl (7.4-10.4); Monocytes # 0.4 K/mm3 (0.1-1.0); Monocytes % 2.8 % (1.7-9.3); Neutrophils # 10.3 K/mm3 (1.8-7.8); Neutrophils % 79.2 % (37.0-80.0); Platelet Count 382 K/mm3 (142-424); Red Blood Count 3.36 M/mm3 (4.20-5.40); Red Cell Distribution Width 13.1 % (11.5-17.5)
[2021-04-22 09:35] VITALS: BP 128/76; PULSE 90; RESP 18; TEMP 37.1; BMI 22.3
--- NOTE | 2021-04-22 10:25 | HMH.LABNOT ---
Labor Note - Subjective: Date: 04/22/21 Time: 10:25 regular contraction - Objective: NST:: Reactive Contractions:: every 2-3 minutes Cervical Dilation:: 4 Effacement:: 90% Station: -1 Membranes: artificially ruptured - Fetus: Monitoring?: Yes monitoring type:: Internal Comment:: I inserted an IUPC as well as a scalp clip. - Assessment: Labor progressing?: Yes Cephalopelvic disproportion?: No Patient Problems: All Active Problems Viral syndrome (Acute) Bacterial vaginosis in (Acute) (Acute) - Plan: Anesthesia for epidural?: Yes Continue to labor down?: Yes Plan for ?: No Continue to monitor?: Yes Start pushing?: No
--- NOTE | 2021-04-22 10:26 | HMH.OBAPHP ---
OB - H&P: HPI Antepartum - History of Present Illness Chief complaint: Postterm , Covid History of present illness: She is a 26-year-old 1 para 0 at 40+2 weeks gestational age. She is brought in for induction of labor at term. She tested positive for Covid about 10 days ago. She still positive but she is now asymptomatic. - History of Present Criteria for establishing EDC:: LMP confirmed by 1st trimester US care: good care Ultrasounds: normal 1st trimester US, normal mid trimester US Obstetrical complications: none Medical complications: other (Covid positive.) - Labs Blood type: A (+) positive Rubella: immune RPR/VDRL: nonreactive GBS status: negative HBsAG: negative [facility] History I have reviewed the patient's past medical history: Yes Medical History: Reports:: Anxiety, Depression Denies:: Cancer, Diabetes Mellitus Type 1, Diabetes Mellitus Type 2, Internal Pacemaker, MRSA *Have you ever received a pneumonia vaccine?: No *Have you received a flu vaccine this season?: No Other Surgeries: No: , Pacemaker Amputation: No Fractures: No - *Social History Smoking Status: Current every day smoker Tobacco Type: cigarettes # Packs/Day (cigarettes): 1 Alcohol Intake: never Alcohol Intake Frequency:: other Substance Use Type: denies use, marijuana *Occupational Status:: unemployed *Travel in the last 8 weeks: None - Psychiatric History Pschychiatric History:: Reports:: Anxiety, Depression Family Hx:: No significant family history Para: 0 Review of Systems - Review of Systems Review of systems:: pertinent systems reviewed and negative unless documented below Meds Home Medications Medication Instructions Recorded Confirmed Type Famotidine [Acid Precision Inspector] 20 mg PO DAILY 04/22/21 04/22/21 History Ferrous Sulfate 325 mg PO DAILY 04/22/21 04/22/21 History Vit No.126/Iron/Folic 1 tab PO DAILY 04/22/21 04/22/21 History [Classic ] Allergies Allergy/AdvReac Type Severity Reaction Status Date / Time No Known Allergies Allergy Verified 04/19/21 10:07 OB - H&P: Exam - Physical Exam Vital signs: Temp Pulse Resp BP 98.7 F 90 18 128/76 04/22/21 09:35 04/22/21 09:35 04/22/21 09:35 04/22/21 09:35 - Constitutional no acute distress - Routine HEENT Exam Head: Present: normocephalic Eye: Present: EOMI, PERRL ENT: Present: mucous membranes moist - Routine Neck Exam Present: supple, full ROM - Routine Respiratory Exam Absent: accessory muscle use (good air entry bilaterally), respiratory distress, wheezes, crackles - Routine Cardiovascular Exam Present: RRR. Absent: murmur - Routine Abdominal Exam Present: soft, normoactive bowel sounds. Absent: tenderness, distended, guarding - Routine Rectal Exam Patient deferred: visual exam, digital exam - Routine Exam Patient deferred: external exam, groin exam, perineal exam - Routine Extremities Exam Present: full ROM. Absent: cyanosis, edema - Routine Skin Exam Present: intact. Absent: cyanosis - Routine Neurological Exam Present: alert, oriented X3 - Routine Psychiatric Exam Present: normal affect OB - Results - Labs Labs: Short CBC 04/22/21 Range/Units 07:00 WBC 13.0 H (4.8-10.8) K/mm3 Hgb 10.6 L (12.2-16.2) g/dL Hct 31.9 L (37.0-47.0) % Plt Count 382 (142-424) K/mm3 OB - A/P Antepartum (1) Post-term Status: Acute (2) COVID-19 affecting , antepartum Status: Acute (3) Normal delivery procedure Status: Acute - Additional Plan Planning to breastfeed?: No Plan: induction Additional Information:: She is postdates. She is just getting over Covid. We are inducing her labor.
--- NOTE | 2021-04-22 13:54 | P.PN_ITS ---
[facility] Anesthesia Checklist - Structural Data Admitted From: Inpatient Planned Operative Procedure/s: labor epidural Consent for Planned Operative Procedure(s) Verified: Yes - Airway Assessment TMJ Mobility Assessed: Yes Dentition: Good Dentition - Neurological Assessment Level of Consciousness: Awake, Alert, Appropriate - Anesthesia Plan Anesthesia Plan: Verified ASA Class: II Anesthesia Type: Epidural [facility] History I have reviewed the patient's past medical history: Yes Medical History: Reports:: Anxiety, Depression Denies:: Cancer, Diabetes Mellitus Type 1, Diabetes Mellitus Type 2, Internal Pacemaker, MRSA *Have you ever received a pneumonia vaccine?: No *Have you received a flu vaccine this season?: No Anesthesia experience/problems:: none Other Surgeries: No: , Pacemaker Amputation: No Fractures: No - *Social History Smoking Status: Current every day smoker Tobacco Type: cigarettes # Packs/Day (cigarettes): 1 Alcohol Intake: never Alcohol Intake Frequency:: other Substance Use Type: denies use, marijuana *Occupational Status:: unemployed *Travel in the last 8 weeks: None - Psychiatric History Pschychiatric History:: Reports:: Anxiety, Depression Family Hx:: No significant family history Para: 0
--- NOTE | 2021-04-22 13:57 | HMH.LABNOT ---
Labor Note - Subjective: Date: 04/22/21 Time: 12:30 regular contraction - Objective: NST:: Reactive Contractions:: every 2-3 minutes Effacement:: 100% Station: -1 Membranes: artificially ruptured - Fetus: Monitoring?: Yes monitoring type:: Internal - Assessment: Labor progressing?: Yes Cephalopelvic disproportion?: No Patient Problems: All Active Problems Viral syndrome (Acute) Bacterial vaginosis in (Acute) Post-term (Acute) COVID-19 affecting , antepartum (Acute) Normal delivery procedure (Acute) (Acute) - Plan: Anesthesia for epidural?: No Continue to labor down?: Yes Plan for ?: No Continue to monitor?: Yes Start pushing?: No
--- NOTE | 2021-04-22 17:27 | HMH.LABNOT ---
Labor Note - Subjective: Date: 04/22/21 Time: 17:27 regular contraction - Objective: NST:: Reactive Contractions:: every 2-3 minutes Cervical Dilation:: 9-10 Effacement:: 100% Station: +1 Membranes: artificially ruptured - Fetus: Monitoring?: Yes monitoring type:: Internal - Assessment: Labor progressing?: Yes Cephalopelvic disproportion?: Yes Patient Problems: All Active Problems Viral syndrome (Acute) Bacterial vaginosis in (Acute) Post-term (Acute) COVID-19 affecting , antepartum (Acute) Normal delivery procedure (Acute) (Acute) - Plan: Anesthesia for epidural?: Yes Continue to labor down?: Yes Plan for ?: No Continue to monitor?: Yes Start pushing?: No Comment:: We will allow the head to come down a little bit more yet before she starts pushing. Nonstress test is reactive. She is doing well.
[2021-04-22 18:09] LABS: Microscopic, Urine URINE MICROSCOPIC (MICROSCOPIC)
[2021-04-22 18:13] LABS: Appearance,Urine CLEAR (Clear); Bilirubin,Urine Negative (Negative); Blood, Urine TRACE-L (Negative); Color,Urine STRAW (Yellow); Glucose,Urine (UA) Negative (Negative); Ketones,Urine Negative (Negative); Leukocyte Esterase,Urine Negative (Negative); Nitrate,Urine Negative (Negative); Protein,Urine Negative (Negative); Urobilinogen,Urine 0.2 EU/dl (0.2)
[2021-04-22 18:26] LABS: Amphetamine/Metha Screen,Urine Negative ng/ml (<1000)
[2021-04-22 18:27] LABS: Barbiturates Screen,Urine Negative ng/ml (<200)
[2021-04-22 18:28] LABS: Benzodiazepines Screen,Urine Negative ng/ml (<200); Cannabinoid Screen,Urine Negative ng/ml (<50)
[2021-04-22 18:29] LABS: Cocaine Screen,Urine Negative ng/ml (<300)
[2021-04-22 18:30] LABS: Methadone Screen,Urine Negative ng/ml (<300); Opiate Screen,Urine Negative ng/ml (<300)
[2021-04-22 18:31] LABS: Phencyclidine Screen,Urine Negative ng/ml (<25)
[2021-04-22 18:32] LABS: RBC,Urine Occasional #/hpf (0-3)
--- NOTE | 2021-04-22 20:07 | HMH.DN ---
- Delivery Note Delivery Date:: 04/22/21 Delivery Time:: 19:54 Anesthesia Type: Epidural Was labor medically induced?: Yes Induction method: per pitocin protocol Gestational age (weeks): 40 Infant delivered prior to 39 weeks?: No Justification for early elective delivery:: Post term Gender: Female at 1 minute: 9 at 5 minutes: 9 LAC or MLE?: LAC Delivery Procedure:: She is a 26-year-old 1 para 0 at 40 and 2 weeks gestational age. Since she was postdates we brought her in for induction of labor at term. She was started on IV oxytocin had her membranes ruptured. Under labor epidural she progressed to full dilation and delivered spontaneously a liveborn female child at 7:54 PM in the evening of April 22, 2021. On deliver the head the anterior shoulder then easily delivered followed by the rest the 's body atraumatically. The oropharynx and nasopharynx were bulb suctioned. The baby was vigorous. We allowed the cord to continue to pulsate for approximately 1 minute. The cord was then doubly clamped and cut and the infant was placed on the mother's abdomen for further care. The nurses assigned Apgars of 9 at 1 minute and 9 at 5 minutes. We then obtained cord blood. I obtained cord pH but did not send this off since the baby was vigorous. She received IV oxytocin and using gentle traction on the cord and countertraction on the fundus I was able to easily deliver the placenta intact at 7:57 PM. It had a normal three-vessel cord. She had a small second-degree perineal laceration that was repaired in the usual fashion with 3-0 Vicryl Rapide suture. She has a positive blood, she is rubella nonimmune and was group B streptococcus negative. She plans to breast-feed. Her estimated blood loss was approximately 300 cc. Laceration:: vaginal Placental Delivery Description: Spontaneous
[2021-04-22 20:16] VITALS: BP 145/75; PULSE 95; RESP 18; TEMP 37.2
[2021-04-22 23:33] VITALS: BP 128/72; PULSE 67; RESP 18; TEMP 37.2; O2SAT 99
[2021-04-23 04:11] VITALS: BP 118/60; PULSE 68; RESP 16; TEMP 37.1; O2SAT 98
[2021-04-23 08:00] VITALS: BP 139/77; PULSE 81; RESP 20; TEMP 36.8; O2SAT 100
[2021-04-23 08:15] LABS: Hemoglobin 9.6 g/dL (12.2-16.2)
--- NOTE | 2021-04-23 11:23 | P.PN_ITS ---
Internal Medicine - PN: Subj *Date: 04/23/21 *Time: 11:23 Interval history: She is 1 day from a vaginal delivery. She is doing very well. Her lochia is normal. She is breast-feeding. Exam Vital signs and Labs for Last 24 Hours: Temp Pulse Resp BP Pulse Ox 98.2 F 81 20 139/77 100 04/23/21 08:00 04/23/21 08:00 04/23/21 08:00 04/23/21 08:00 04/23/21 08:00 Laboratory Results - last 24 hr 04/22/21 16:13: Urine Opiates Screen Negative, Urine Methadone Screen Negative, Ur Barbituates Screen Negative, Ur Phencyclidine Scrn Negative, Ur Amphetamines Screen Negative, U Benzodiazepines Scrn Negative, Urine Cocaine Screen Negative, U Marijuana (THC) Screen Negative 04/22/21 16:13: Urine Color Straw, Urine Appearance Clear, Urine pH 7.0, Ur Specific [place] 1.010, Urine Protein Negative, Urine Glucose (UA) Negative, Urine Ketones Negative, Urine Blood Trace-l, Urine Nitrate Negative, Urine Bilirubin Negative, Urine Urobilinogen 0.2, Ur Leukocyte Esterase Negative, Urine RBC Occasional, Urine WBC None, Ur Squamous Epith Cells None, Urine Bacteria None 04/23/21 06:42: Hgb 9.6 L, Hct 29.0 L I & O for Last 24 hours: Intake & Output 04/20/21 04/21/21 04/22/21 04/23/21 11:59 11:59 11:59 11:59 Weight 126 lb 0.013 oz - Constitutional no acute distress - *Routine HEENT Exam Head: Present: normocephalic Eye: Present: EOMI, PERRL ENT: Present: mucous membranes moist Assessment and Plan (1) Post-term Status: Acute Category: Medical Code(s): O48.0 - Post-term (2) COVID-19 affecting , antepartum Status: Acute Category: Medical Code(s): O98.519 - Other viral diseases complicating , unspecified trimester; U07.1 - COVID-19 (3) Normal delivery procedure Status: Acute Category: Medical Code(s): O80 - Encounter for full-term uncomplicated delivery - Assessment and plan all Dx Assessment and Plan for all problems:: She is doing well. We will plan to send her home tomorrow.
[2021-04-23 12:00] VITALS: BP 130/63; PULSE 82; RESP 20; TEMP 36.8; O2SAT 100
[2021-04-23 12:15] LABS: Coronavirus 19 IgG Antibody Negative (Negative)
[2021-04-23 12:16] LABS: Coronavirus 19 IgM Antibody Negative (Negative)
[2021-04-23 16:00] VITALS: BP 120/55; PULSE 64; RESP 20; TEMP 36.8; O2SAT 98
[2021-04-24 09:46] VITALS: BP 122/60; PULSE 69; RESP 18; TEMP 36.9; O2SAT 98
--- NOTE | 2021-04-24 09:54 | HMH.OBDCSM ---
General - General Admission date:: 04/22/21 Discharge date: 04/24/21 HPI - History of Present Illness History of present illness: She is a 26-year-old 2 para 0 aborta 1 who was 40 and 2 weeks gestational age. We brought her in for induction of labor at term. Hospital Course Hospital Course: She was started on IV oxytocin had her membranes ruptured. Under labor epidural she progressed to full dilation and delivered spontaneously a liveborn female child at 7:54 PM in the afternoon of April 22, 2021. The baby weighed 7 pounds 0 ounces and was 20 inches long. She had Apgars of 9 at 1 minute and 9 at 5 minutes. She has done well and has remained afebrile throughout hospitalization. She is eating and drinking and ambulating. She is breast-feeding. Her lochia is normal. She has a positive blood, she is rubella nonimmune and will receive MMR. She is group B streptococcus negative. Her film rental clerk is Dr. Bingham. She will be discharged home today to follow-up with me in approximately 2 weeks time. She will continue with her vitamins and iron. She was given the usual instructions with respect to limiting her activity, driving and sexual activity. Her condition on discharge is stable and improved. Rhogam Administration: Not Indicated Objective Vital signs: Temp Pulse Resp BP Pulse Ox 98.2 F 64 20 120/55 L 98 04/23/21 16:00 04/23/21 16:00 04/23/21 16:00 04/23/21 16:00 04/23/21 16:00 no acute distress - *Routine HEENT Exam Head: Present: normocephalic Eye: Present: EOMI, PERRL ENT: Present: mucous membranes moist Results Labs on day of discharge: Labs from last 24 hours 04/23/21 10:36 SARS-CoV-2 IgG Ab (Rapid) Negative SARS-CoV-2 IgM Ab (Rapid) Negative DS: Diagnosis - Discharge Diagnosis (1) Post-term Status: Acute (2) COVID-19 affecting , antepartum Status: Acute (3) Normal delivery procedure Status: Acute Discharge Plan - Patient Discharge Instructions ACTIVITY: No heavy lifting DIET: continue same diet Additional Instructions: No heavy lifting, no strenuous activity and nothing in the vagina for 6 weeks Patient Instructions: Depression, Hemorrhage, DI for Labor and Delivery, Vaginal , DI for Pre-eclampsia, [facility] Post Discharge Instructions, Preventing the Spread of Coronavirus Discharge Instructions - Follow up Plan Follow up with: Mohamud Pizano MD [Staff Physician] - Disposition: Home, Self-Care Condition at discharge:: Stable Home Medications: Home Medications Medication Instructions Recorded Confirmed Type Famotidine [Acid Inventory Control/Shipping Receiving] 20 mg PO DAILY 04/22/21 04/22/21 History Ferrous Sulfate 325 mg PO DAILY 04/22/21 04/22/21 History Vit No.126/Iron/Folic 1 tab PO DAILY 04/22/21 04/22/21 History [Classic ] Prescriptions/Medication Reconciliation: Continued Vit No.126/Iron/Folic [Classic ] 1 tab PO DAILY Ferrous Sulfate 325 mg PO DAILY Famotidine [Acid Inventory Control/Shipping Receiving] 20 mg PO DAILY - Problem Reconciliation Problems Reviewed?: Yes
== END 2021-04-24 11:50 | disposition home or self-care (01) | DRG 806 ==
PROVIDERS: Family Medicine; Admitting Provider Nurse Practitioner Obstetrics & Gynecology; Visit Provider Nurse Practitioner Obstetrics & Gynecology
DX: O70.1 Second degree perineal laceration during delivery (principal); O98.513 Other viral diseases complicating pregnancy, third trimester; Z37.0 Single live birth; Z3A.40 40 weeks gestation of pregnancy; Z23 Encounter for immunization; Z86.16 Personal history of COVID-19
CPT/HCPCS: 59409; 36415; 59025; 80305; 81001; 85014; 85018; 85025; 86328; 86850; 94761; C1758; C9803; G0283; J2405; U0003; U0005

== ENCOUNTER → 2021-08-13 14:25 | Outpatient (CLI) | payer MEDICAID, SELFPAY ==
[2021-08-13 16:09] LABS: HCG,Quantitative 466 mIU/ml (0-5.42)
== END ==
PROVIDERS: Visit Provider Nurse Practitioner Obstetrics & Gynecology
DX: N92.6 Irregular menstruation, unspecified (principal)
CPT/HCPCS: 36415; 84702

== ENCOUNTER 2021-08-13 14:37 | Emergency (ER) | payer MEDICAID, SELFPAY ==
[2021-08-13 15:39] VITALS: BP 0/0; PULSE 0; RESP 0; TEMP -17.7; TEMP 0
== END 2021-08-13 15:40 | disposition left against medical advice (07) ==
LOC: UTC 14:38
PROVIDERS: Emergency Provider Nurse Practitioner
DX: Z53.21 Procedure and treatment not carried out due to patient leaving prior to being seen by health care provider (principal)

== ENCOUNTER → 2021-08-23 09:36 | Outpatient (CLI) | payer MEDICAID, SELFPAY | PROVIDERS: Visit Provider Nurse Practitioner | DX: U07.1 COVID-19 (principal) | CPT/HCPCS: C9803; U0003; U0005 ==

== ENCOUNTER → 2021-09-03 12:50 | Outpatient (CLI) | payer MEDICAID, SELFPAY ==
--- NOTE | 2021-09-03 12:54 | US_ITS ---
FINAL REPORT CLINICAL HISTORY: US OB Before 14 wks for Dates-Confrimation FINDINGS: PELVIC ULTRASOUND A yolk sac is present. Cardiac activity is confirmed at 136 beats per minute. Clancy-rump length is 1.2 cm consistent with 7 weeks 3 days. Appropriate amount of fluid is present. IMPRESSION: Estimated gestational age is 7 weeks 3 days. Reviewed, Interpreted and Dictated by Wilfrid Wilkins MD Transcribed by Yonatan Ho Authenticated by Wilfrid Wilkins MD on 09/03/2021 02:42:51 PM [facility]
== END ==
PROVIDERS: PCP Nurse Practitioner Obstetrics & Gynecology; Visit Provider Nurse Practitioner Obstetrics & Gynecology
DX: O26.841 Uterine size-date discrepancy, first trimester (principal)
CPT/HCPCS: 76801

== ENCOUNTER → 2021-09-27 12:21 | Outpatient (CLI) | payer MEDICAID, SELFPAY ==
[2021-09-27 12:55] LABS: Basophils # 0.1 K/mm3 (0-0.2); Basophils % 0.5 % (0.1-2.0); Eosinophils # 0.1 K/mm3 (0.0-0.4); Eosinophils % 0.9 % (0.1-12.0); Hematocrit 40.1 % (37.0-47.0); Hemoglobin 13.5 g/dL (12.2-16.2); Lymphocytes # 2.2 K/mm3 (0.7-4.5); Lymphocytes % 19.5 % (10-50); Mean Corpuscular HGB Conc 33.7 g/dL (31.8-35.4); Mean Corpuscular Hemoglobin 30.5 pg (27.0-31.2); Mean Corpuscular Volume 90.6 fl (81-99); Mean Platelet Volume 7.3 fl (7.4-10.4); Monocytes # 0.3 K/mm3 (0.1-1.0); Monocytes % 2.6 % (1.7-9.3); Neutrophils # 8.7 K/mm3 (1.8-7.8); Neutrophils % 76.5 % (37.0-80.0); Platelet Count 387 K/mm3 (142-424); Red Blood Count 4.43 M/mm3 (4.20-5.40); Red Cell Distribution Width 13.4 % (11.5-17.5); White Blood Count 11.3 K/mm3 (4.8-10.8)
[2021-09-28 08:19] LABS: HSV 1 IgG, Type Spec <0.91 index (0.00-0.90); HSV 2 IgG, Type Spec <0.91 index (0.00-0.90); Rubella Antibodies, IgG <0.90 index (Immune >0.99)
[2021-09-28 11:03] LABS: HIV Screen 4th Generation wRfx Non Reactive (Non Reactive); Rapid Plasma Reagin Ab Titer Non Reactive (NonRea<1:1)
[2021-09-28 12:10] LABS: Hepatitis B Surface Antigen Negative (Negative); Hepatitis C Antibody <0.1 s/co ratio (0.0-0.9)
== END ==
PROVIDERS: Visit Provider Nurse Practitioner Obstetrics & Gynecology
DX: Z34.90 Encounter for supervision of normal pregnancy, unspecified, unspecified trimester (principal)
CPT/HCPCS: 36415; 85025; 86592; 86695; 86703; 86762; 86790; 86850; 87340; 87380; G0432

== ENCOUNTER 2021-10-18 16:44 | Emergency (ER) | payer MEDICAID, SELFPAY ==
[2021-10-18 17:07] VITALS: BP 113/79; PULSE 79; RESP 16; TEMP 36.8; O2SAT 99; BMI 25.0
--- NOTE | 2021-10-18 17:11 | HMH.EDSKAF ---
ED Disposition Clinical Impression: Infected dental caries Disposition: Home, Self-Care Condition on Discharge: Good Instructions: DI for Dental Pain Prescriptions: Amoxicillin/Potassium Clav [Amox-Clav 875-125 mg Tablet] 1 tab PO BID #14 tab Transmission Status: Pending to [id number] Referrals: Mohamud Pizano MD [Primary Care Provider] - - Critical Care Critical Care Time: No Attestation: On 10/18/21, the high probability of a clinically significant, sudden or life threatening deterioration of the following system(s) required my full and direct attention, intervention and personal management. The time I documented below is in addition to time spent performing reported procedures but includes the following listed in this critical care notation. Medical Decision Making - Medical Records Medical records reviewed: Yes: I reviewed the patient's medical records. - [place] Inquiry Pt receiving controlled substance: No Vital Signs: 10/18/21 17:07 Temperature 98.2 F Temperature Source Oral Pulse Rate [Left Radial] 79 Respiratory Rate 16 Blood Pressure [Right Arm] 113/79 Blood Pressure Mean [Right Arm] 90 02 Sat by Pulse Oximetry 99 Oxygen Delivery Method Room Air Medical Decision Narrative: 26-year-old female presenting with dental pain. Findings are consistent with infected dental carry. Patient will require dental extraction. I did inform her that we do not do that at this facility. She states that she has dental follow-up on Thursday. I will place the patient on a short course antibiotics. She was provided dental packing with topical lidocaine for symptomatic relief. She is to continue Tylenol for pain. Given strict return precautions. Verbalized understanding. Skin/Abscess/FB HPI - General Chief complaint: Skin/Abscess/Foreign Body Stated complaint: Tooth pain;13 week Time Seen by Provider: 10/18/21 17:10 Mode of Arrival: Ambulatory Limitations: No Limitations Description of Symptoms (Recalled from ER Triage Doc. by RN): pt to ed c/o tooth abscess. pt states she is currently . - History of Present Illness HPI narrative: Is a 26-year-old female presenting with some tooth pain. Patient has had the symptoms for the last week or so. States that she cracked her right lower molar at that time. She has been unable to see a dentist. The patient has been taking Tylenol, however she is currently . States that the pain is dull in nature. She is not having any discharge from the tooth. States it is worse when she tries to eat or drink anything on that side. She denies any associated headache or change in vision. No focal weakness. No fevers or chills. No chest pain or shortness of breath. No abdominal pain or vomiting. No diarrhea. - Related Data Home Medications Medication Instructions Recorded Confirmed Vit No.126/Iron/Folic 1 tab PO DAILY 04/22/21 09/27/21 [Classic Tablet] Previous Rx's Medication Instructions Recorded prenat.vits,marco a,ijd-lrvm-alnma 1 tab PO DAILY #30 tab 08/21/21 metronidazole 1.3 % vaginal gel 1 appful VAGINAL HS 0 Days #5 g 08/30/21 hydrocortisone 1 % topical cream 1 applic TOPICAL TID PRN #28.35 g 09/27/21 promethazine 12.5 mg tablet 12.5 mg PO Q6H PRN #30 tab 09/27/21 Amoxicillin/Potassium Clav 1 tab PO BID #14 tab 10/18/21 [Amox-Clav 875-125 mg Tablet] Allergies Allergy/AdvReac Type Severity Reaction Status Date / Time No Known Allergies Allergy Verified 09/27/21 11:22 [facility] History - Hepatitis A Screen Drug use history?: No High risk sexual behaviors?: No History of sexually transmitted infection?: No Currently employed?: No Childcare worker?: No Do you have indoor plumbing?: Yes Do you have electricity?: Yes Attestation statement:: This patient has been screened for Hepatitis A risk factors. I have reviewed the patient's past medical history: Yes Medical History: Reports
[2021-10-18 17:47] VITALS: BP 112/81; PULSE 84; RESP 17; TEMP 36.8; O2SAT 100
== END 2021-10-18 17:49 | disposition home or self-care (01) ==
PROVIDERS: Emergency Provider Emergency Medicine; PCP Nurse Practitioner Obstetrics & Gynecology
DX: K02.9 Dental caries, unspecified (principal); K03.81 Cracked tooth; Z3A.13 13 weeks gestation of pregnancy; F41.8 Other specified anxiety disorders; F17.210 Nicotine dependence, cigarettes, uncomplicated
CPT/HCPCS: 99283

== ENCOUNTER → 2021-12-03 09:55 | Outpatient (CLI) | payer MEDICAID, SELFPAY ==
--- NOTE | 2021-12-03 09:57 | US_ITS ---
FINAL REPORT CLINICAL HISTORY: US OB COMPLETE Anatomy Scan 20wk+ FINDINGS: There is a single live intrauterine gestation. Presentation is breech. The cervix is closed and measures 3.1 cm. Placenta is anterior, high, grade 1. Cardiac activity is confirmed but heart rate was not recorded. Three-vessel cord with satisfactory umbilical cord insertion. Four-chamber heart is noted. AMNIOTIC FLUID: Appropriate amount. MEASUREMENTS: ULTRASOUND AGE: 20 weeks 1 days. GESTATION AGE: 20 weeks 3 days. ESTIMATED WEIGHT: 338 g GROWTH PERCENTILE: 33% BPD: 4.6 cm corresponding with 20 weeks 1 days. OFD: 6.1 cm corresponding with 20 weeks 5 days. HC: 17.1 cm corresponding with 19 weeks 5 days. AC: 15.1 cm corresponding with 20 weeks 3 days. FL: 3.3 cm corresponding with 20 weeks 1 days. CEREBELLUM: 2.1 cm corresponding with 20 weeks 6 days. HUMERUS: 3.2 cm corresponding with 20 weeks 5 days. NUCH FOLD: 1.8 mm. HC/AC: 1.13 CI: 76% FL/BPD: 70% FL/AC: 21% IMPRESSION: Single living IUP with an ultrasound age of 20 weeks 1 days. Reviewed, Interpreted and Dictated by Wilfrid Wilkins MD Transcribed by Jennifer العلي Authenticated by Wilfrid Wilkins MD on 12/03/2021 01:36:36 PM [facility]
== END ==
PROVIDERS: PCP Nurse Practitioner Obstetrics & Gynecology; Visit Provider Nurse Practitioner Obstetrics & Gynecology
DX: Z36.0 Encounter for antenatal screening for chromosomal anomalies (principal)
CPT/HCPCS: 76811

== ENCOUNTER 2022-01-23 22:06 | Outpatient (CLI) | payer MEDICAID, SELFPAY ==
[2022-01-23 22:24] VITALS: BMI 24.3
[2022-01-23 22:30] LABS: Microscopic, Urine URINE MICROSCOPIC (MICROSCOPIC)
[2022-01-23 22:32] LABS: POC Glucose,Bedside 101 (70-110)
[2022-01-23 22:32] LABS: Appearance,Urine SL CLOUDY (Clear); Bilirubin,Urine Negative (Negative); Blood, Urine Negative (Negative); Color,Urine YELLOW (Yellow); Glucose,Urine (UA) Negative (Negative); Ketones,Urine Negative (Negative); Leukocyte Esterase,Urine Negative (Negative); Nitrate,Urine Negative (Negative); Protein,Urine Negative (Negative); Specific Gravity, Urine 1.025 (1.005-1.030); Urobilinogen,Urine 0.2 EU/dl (0.2)
[2022-01-23 22:36] VITALS: BP 125/81; PULSE 101; RESP 17; TEMP 36.9; O2SAT 99; BMI 24.3
[2022-01-23 22:43] LABS: Amphetamine/Metha Screen,Urine Negative ng/ml (<1000); Bacteria,Urine 1+ /lpf; Benzodiazepines Screen,Urine Negative ng/ml (<200)
[2022-01-23 22:44] LABS: Barbiturates Screen,Urine Negative ng/ml (<200)
[2022-01-23 22:45] LABS: Cannabinoid Screen,Urine Negative ng/ml (<50); Cocaine Screen,Urine Negative ng/ml (<300)
[2022-01-23 22:46] LABS: Methadone Screen,Urine Negative ng/ml (<300); Opiate Screen,Urine Negative ng/ml (<300)
[2022-01-23 22:47] LABS: Phencyclidine Screen,Urine Negative ng/ml (<25)
== END 2022-01-23 23:05 | disposition home or self-care (01) ==
LOC: OBOUT 22:08 → OB 22:09
PROVIDERS: PCP Nurse Practitioner Obstetrics & Gynecology; Visit Provider Obstetrics & Gynecology
DX: O26.892 Other specified pregnancy related conditions, second trimester (principal); Z3A.27 27 weeks gestation of pregnancy; R42 Dizziness and giddiness; R11.0 Nausea; R53.1 Weakness
CPT/HCPCS: 59025; 80305; 81001; 82962; G0463

== ENCOUNTER 2022-01-24 20:33 | Outpatient (CLI) | payer MEDICAID, SELFPAY ==
[2022-01-24 21:00] VITALS: BP 109/69; PULSE 102; RESP 20; TEMP 37.1; O2SAT 100
[2022-01-24 21:06] VITALS: BMI 24.3
[2022-01-24 21:23] LABS: Basophils # 0.1 K/mm3 (0-0.2); Basophils % 0.5 % (0.1-2.0); Eosinophils % 0.4 % (0.1-12.0); Hematocrit 33.1 % (37.0-47.0); Hemoglobin 11.4 g/dL (12.2-16.2); Lymphocytes % 15.4 % (10-50); Mean Corpuscular HGB Conc 34.5 g/dL (31.8-35.4); Mean Corpuscular Hemoglobin 33.3 pg (27.0-31.2); Mean Corpuscular Volume 96.6 fl (81-99); Mean Platelet Volume 8.1 fl (7.4-10.4); Monocytes # 0.4 K/mm3 (0.1-1.0); Monocytes % 2.8 % (1.7-9.3); Neutrophils # 10.3 K/mm3 (1.8-7.8); Neutrophils % 80.9 % (37.0-80.0); Platelet Count 348 K/mm3 (142-424); Red Blood Count 3.43 M/mm3 (4.20-5.40); Red Cell Distribution Width 13.7 % (11.5-17.5); White Blood Count 12.7 K/mm3 (4.8-10.8)
[2022-01-24 21:29] LABS: Chloride 106 mmol/L (98-107); Potassium 3.7 mmoL/L (3.5-5.1); Sodium 132 mmol/L (136-145)
[2022-01-24 21:30] VITALS: BP 109/69; PULSE 102; RESP 20; TEMP 37.1; O2SAT 100; BMI 24.3
[2022-01-24 21:32] LABS: Alanine Aminotransferase 9 U/L (12-78); Albumin Level 3.5 g/dl (3.5-5.0); Albumin/Globulin Ratio 1.2 (1.1-1.8); Alkaline Phosphatase 95 U/L (38-126); Anion Gap 9.7 mEq/L (5-15); Aspartate Amino Transferase 18 U/L (14-36); Bilirubin,Total 0.4 mg/dl (0.2-1.3); Blood Urea Nitrogen 6 mg/dl (7-17); Calcium 8.8 mg/dl (8.4-10.2); Carbon Dioxide 20 mmol/L (22.0-30.0); Creatinine Clearance Estimated 147 mL/min (50-200); Estimated Glomerular Filt Rate 120 ml/min (>60); GFR (African American) 145 ML/MIN (>60); Glucose 83 mg/dl (74-100); Total Protein,Serum 6.5 g/dl (6.3-8.2)
[2022-01-24 21:38] LABS: Benzodiazepines Screen,Urine Negative ng/ml (<200)
[2022-01-24 21:39] LABS: Amphetamine/Metha Screen,Urine Negative ng/ml (<1000)
[2022-01-24 21:40] LABS: Barbiturates Screen,Urine Negative ng/ml (<200); Cannabinoid Screen,Urine Negative ng/ml (<50)
[2022-01-24 21:41] LABS: Cocaine Screen,Urine Negative ng/ml (<300); Methadone Screen,Urine Negative ng/ml (<300)
[2022-01-24 21:42] LABS: Opiate Screen,Urine Negative ng/ml (<300)
[2022-01-24 21:43] LABS: Phencyclidine Screen,Urine Negative ng/ml (<25)
== END 2022-01-24 22:05 | disposition home or self-care (01) ==
LOC: OBOUT 20:37 → OB 20:37
PROVIDERS: PCP Nurse Practitioner Obstetrics & Gynecology; Visit Provider Nurse Practitioner Obstetrics & Gynecology
DX: O26.892 Other specified pregnancy related conditions, second trimester (principal); Z3A.27 27 weeks gestation of pregnancy; R42 Dizziness and giddiness
CPT/HCPCS: 36415; 59025; 80053; 80305; 85025; G0463

== ENCOUNTER 2022-01-25 19:41 | Emergency (ER) | payer MEDICAID, SELFPAY ==
[2022-01-25 20:06] LABS: Adenovirus,PCR Not Detected (NotDetected); Bordetella Pertussis Not Detected (NotDetected); Chlamydophila Pneumoniae, PCR Not Detected (NotDetected); Coronavirus 19, PCR Not Detected (NotDetected); Coronavirus 229E Not Detected (NotDetected); Coronavirus NL63 Not Detected (NotDetected); Coronavirus OC43 Not Detected (NotDetected); Coronovirus HKU1,PCR Not Detected (NotDetected); Human Metapneumovirus Not Detected (NotDetected); Influenza A, PCR Not Detected (NotDetected); Influenza AH1, 2009 Not Detected (NotDetected); Influenza AH1, PCR Not Detected (NotDetected); Influenza AH3,PCR Not Detected (NotDetected); Influenza B, PCR Not Detected (NotDetected); Mycoplasma Pneumoniae, PCR Not Detected (NotDetected); Parainfluenza 1, PCR Not Detected (NotDetected); Parainfluenza 2, PCR Not Detected (NotDetected); Parainfluenza 3, PCR Not Detected (NotDetected); Parainfluenza 4, PCR Not Detected (NotDetected); Respiratory Syncytial Virus Not Detected (NotDetected); Rhinovirus/Enterovirus Not Detected (NotDetected)
[2022-01-25 20:16] VITALS: RESP 17; TEMP 36.8; O2SAT 98; BMI 27.4
[2022-01-25 20:25] LABS: UTC Influenza A Antigen Negative (Negative); UTC Influenza B Antigen Negative (Negative)
[2022-01-25 20:42] VITALS: BP 0/0; PULSE 0; RESP 0; TEMP -17.7; TEMP 0
[2022-01-25 20:48] VITALS: BP 115/65; BP 122/64; BP 138/73; PULSE 101; PULSE 104; PULSE 92
== END 2022-01-25 20:42 | disposition left against medical advice (07) ==
LOC: UTC 19:45 → ER 20:36
PROVIDERS: Nurse Practitioner Family; Emergency Provider Emergency Medicine; PCP Nurse Practitioner Obstetrics & Gynecology
DX: R42 Dizziness and giddiness (principal); Z20.822 Contact with and (suspected) exposure to COVID-19; Z53.21 Procedure and treatment not carried out due to patient leaving prior to being seen by health care provider
CPT/HCPCS: 87581; 87632; 87798; 87804; 99283; C9803; U0003; U0005

== ENCOUNTER 2022-03-04 20:32 | Emergency (ER) | payer MEDICAID, SELFPAY ==
[2022-03-04 20:33] VITALS: BP 117/73; PULSE 91; RESP 16; TEMP 36.9; O2SAT 99; BMI 26.4
--- NOTE | 2022-03-04 21:28 | HMH.EDEAR ---
ED Disposition Clinical Impression: Otitis media Qualifiers: Otitis media type: suppurative Chronicity: acute Laterality: right Recurrence: not specified as recurrent Spontaneous tympanic membrane rupture: without spontaneous rupture Qualified Code(s): H66.001 - Acute suppurative otitis media without spontaneous rupture of ear drum, right ear Qualifiers: Weeks of gestation: 33 weeks Qualified Code(s): Z3A.33 - 33 weeks gestation of Disposition: Home, Self-Care Condition on Discharge: Good Instructions: Middle Ear Infection, DI for -- Discomforts and Remedies Additional Instructions: see ent at 1230 in am Referrals: Pedro Rainey MD [Primary Care Provider] - - Critical Care Critical Care Time: No Attestation: On 03/04/22, the high probability of a clinically significant, sudden or life threatening deterioration of the following system(s) required my full and direct attention, intervention and personal management. The time I documented below is in addition to time spent performing reported procedures but includes the following listed in this critical care notation. Medical Decision Making - Medical Records Medical records reviewed: Yes: I reviewed the patient's medical records. - [place] Inquiry Pt receiving controlled substance: No Vital Signs: 03/04/22 20:33 Temperature 98.5 F Temperature Source Oral Pulse Rate [Left] 91 H Respiratory Rate 16 Blood Pressure [Right Arm] 117/73 Blood Pressure Mean [Right Arm] 87 Blood Pressure Source [Right Arm] Automatic Cuff 02 Sat by Pulse Oximetry 99 Oxygen Delivery Method Room Air Orders (Tests/Meds): ED MEDICATIONS Discontinued Medications Generic Name Dose Route Start Last Admin Trade Name Freq PRN Reason Stop Dose Admin Cephalexin HCl 500 mg 03/04/22 21:27 Cephalexin 500mg Capsule PO 03/04/22 21:28 ONCE ONE Prednisone 20 mg 03/04/22 21:27 Prednisone 20mg Tab PO 03/04/22 21:28 ONCE ONE ORDERS Category Date Time Status Rapid PCR Covid and Flu A/B Stat Lab 03/04/22 21:27 Ordered Medical Decision Narrative: has sig ear finding and will need ent in am Ear HPI - General Chief complaint: Ear Stated complaint: NASAL PRESSURE, AND BOTH EAR PAIN Time Seen by Provider: 03/04/22 21:28 Mode of Arrival: Family Vehicle Source of Information: Patient, Medical Record Limitations: No Limitations Description of Symptoms (Recalled from ER Triage Doc. by RN): Pt c/o bilat ear pain for [address] Monzon and her prescribed her a nasal spray, although - History of Present Illness HPI Narrative: rt sided ear pain with dec hearing with progressive sx over the last few days - is 33 wks MD Complaint: ear pain, decreased hearing Location: right ear Duration: intermittent Severity: moderate Treatment prior to arrival: none - Related Data Previous Rx's Medication Instructions Recorded hydrocortisone 1 % topical cream 1 applic TOPICAL TID PRN #28.35 g 09/27/21 PNV 178-FA 180 mcg-om3 35 mg-dha 1 tab PO DAILY #30 tab 12/17/21 25 mg-epa 5 mg-fish oil chew tablet Allergies Allergy/AdvReac Type Severity Reaction Status Date / Time No Known Allergies Allergy Verified 02/26/22 13:39 [facility] History - Hepatitis A Screen Attestation statement:: This patient has been screened for Hepatitis A risk factors. I have reviewed the patient's past medical history: Yes Medical History: Reports:: Anxiety, Depression Denies:: Cancer, Diabetes Mellitus Type 1, Diabetes Mellitus Type 2, Internal Pacemaker, MRSA Other Surgeries: No: , Pacemaker Amputation: No Fractures: No - Social History Smoking Status: Current every day smoker Tobacco Type: cigarettes # Packs/Day (cigarettes): 1 Alcohol Intake: never Alcohol Intake Frequency:: other Substance Use Type: denies use, marijuana Occupational Status: employed - Psychiatric History Pschychiatric History:: Repor
[2022-03-04 21:31] LABS: Influenza A, PCR Not Detected (NotDetected); Influenza B, PCR Not Detected (NotDetected)
[2022-03-04 21:35] VITALS: BP 125/78; PULSE 70; RESP 17; TEMP 36.8; O2SAT 99
[2022-03-04 22:34] LABS: Coronavirus 19, PCR Detected (NotDetected)
== END 2022-03-04 21:40 | disposition home or self-care (01) ==
PROVIDERS: Emergency Provider Emergency Medicine; PCP Internal Medicine Adolescent Medicine
DX: O98.513 Other viral diseases complicating pregnancy, third trimester (principal); U07.1 COVID-19; O26.899 Other specified pregnancy related conditions, unspecified trimester; H66.001 Acute suppurative otitis media without spontaneous rupture of ear drum, right ear; O99.343 Other mental disorders complicating pregnancy, third trimester; F32.A Depression, unspecified; F41.9 Anxiety disorder, unspecified; O99.333 Smoking (tobacco) complicating pregnancy, third trimester; F17.210 Nicotine dependence, cigarettes, uncomplicated; Z3A.33 33 weeks gestation of pregnancy
CPT/HCPCS: 99283; C9803; U0003; U0005

== ENCOUNTER → 2022-03-25 13:28 | Outpatient (CLI) | payer MEDICAID, SELFPAY | PROVIDERS: Visit Provider Nurse Practitioner Obstetrics & Gynecology | DX: Z34.90 Encounter for supervision of normal pregnancy, unspecified, unspecified trimester (principal) | CPT/HCPCS: 86403 ==

== ENCOUNTER 2022-03-28 11:00 | Outpatient (CLI) | payer MEDICAID, SELFPAY ==
[2022-03-28 11:10] VITALS: BMI 24.7
[2022-03-28 11:26] VITALS: BP 125/87; PULSE 101; RESP 18; TEMP 36.8; O2SAT 98; BMI 24.5
[2022-03-28 11:42] LABS: Microscopic, Urine URINE MICROSCOPIC (MICROSCOPIC)
[2022-03-28 11:45] LABS: Appearance,Urine CLEAR (Clear); Bilirubin,Urine Negative (Negative); Blood, Urine Negative (Negative); Color,Urine YELLOW (Yellow); Glucose,Urine (UA) Negative (Negative); Ketones,Urine Negative (Negative); Leukocyte Esterase,Urine TRACE (Negative); Nitrate,Urine Negative (Negative); Protein,Urine Negative (Negative); Urobilinogen,Urine 0.2 EU/dl (0.2)
[2022-03-28 11:52] LABS: Fetal Membrane Rupture (Rapid) Negative (Negative)
[2022-03-28 11:56] LABS: RBC,Urine Occasional #/hpf (0-3); Squamous Epithelial Cell,Urine Occasional #/hpf (0-5); WBC,Urine Occasional #/hpf (0-3)
[2022-03-28 11:57] LABS: Barbiturates Screen,Urine Negative ng/ml (<200)
[2022-03-28 11:58] LABS: Benzodiazepines Screen,Urine Negative ng/ml (<200)
[2022-03-28 11:59] LABS: Amphetamine/Metha Screen,Urine Negative ng/ml (<1000); Methadone Screen,Urine Negative ng/ml (<300)
[2022-03-28 12:00] LABS: Cannabinoid Screen,Urine Negative ng/ml (<50)
[2022-03-28 12:01] LABS: Cocaine Screen,Urine Negative ng/ml (<300); Opiate Screen,Urine Negative ng/ml (<300)
[2022-03-28 12:02] LABS: Phencyclidine Screen,Urine Negative ng/ml (<25)
== END 2022-03-28 12:20 | disposition home or self-care (01) ==
LOC: OBOUT 11:04 → OB 11:04
PROVIDERS: Visit Provider Nurse Practitioner Obstetrics & Gynecology
DX: O36.8130 Decreased fetal movements, third trimester, not applicable or unspecified (principal); Z3A.36 36 weeks gestation of pregnancy
CPT/HCPCS: 59025; 80305; 81001; 84112

== ENCOUNTER 2022-04-11 18:38 | Outpatient (CLI) | payer MEDICAID, SELFPAY ==
[2022-04-11 18:46] VITALS: BMI 26.2
[2022-04-11 18:56] VITALS: BP 138/86; PULSE 95; RESP 18; TEMP 36.7; O2SAT 98; BMI 25.4
[2022-04-11 19:01] LABS: Microscopic, Urine URINE MICROSCOPIC (MICROSCOPIC)
[2022-04-11 19:03] LABS: Appearance,Urine SL CLOUDY (Clear); Bilirubin,Urine Negative (Negative); Blood, Urine TRACE-I (Negative); Glucose,Urine (UA) Negative (Negative); Ketones,Urine Negative (Negative); Leukocyte Esterase,Urine 3+ (Negative); Nitrate,Urine Negative (Negative); PH,Urine 6.5 (5.0-8.5); Protein,Urine Negative (Negative); Urobilinogen,Urine 0.2 EU/dl (0.2)
[2022-04-11 19:05] LABS: Color,Urine Yellow (Yellow)
[2022-04-11 19:20] LABS: Amphetamine/Metha Screen,Urine Negative ng/ml (<1000); Barbiturates Screen,Urine Negative ng/ml (<200)
[2022-04-11 19:21] LABS: Benzodiazepines Screen,Urine Negative ng/ml (<200); Cannabinoid Screen,Urine Negative ng/ml (<50)
[2022-04-11 19:22] LABS: Cocaine Screen,Urine Negative ng/ml (<300)
[2022-04-11 19:23] LABS: Methadone Screen,Urine Negative ng/ml (<300); Opiate Screen,Urine Negative ng/ml (<300)
[2022-04-11 19:24] LABS: Phencyclidine Screen,Urine Negative ng/ml (<25)
[2022-04-11 19:36] LABS: Bacteria,Urine 4+ /lpf; Squamous Epithelial Cell,Urine 20-50 #/hpf (0-5); WBC,Urine TNTC #/hpf (0-3)
== END 2022-04-11 21:00 | disposition home or self-care (01) ==
LOC: OBOUT 18:40 → OB 18:41
PROVIDERS: Referring Provider Nurse Practitioner Obstetrics & Gynecology; Visit Provider Obstetrics & Gynecology
DX: O26.893 Other specified pregnancy related conditions, third trimester (principal); Z3A.38 38 weeks gestation of pregnancy
CPT/HCPCS: 59025; 80305; 81001; 87086; G0463

== ENCOUNTER 2022-04-15 20:50 | Inpatient (IN) | payer MEDICAID, SELFPAY ==
[2022-04-15 19:49] VITALS: BMI 25.7
[2022-04-15 20:24] LABS: Microscopic, Urine URINE MICROSCOPIC (MICROSCOPIC)
[2022-04-15 20:24] LABS: Coronavirus 19, PCR Not Detected (NotDetected); Influenza A, PCR Not Detected (NotDetected); Influenza B, PCR Not Detected (NotDetected)
[2022-04-15 20:26] LABS: Appearance,Urine CLEAR (Clear); Bilirubin,Urine Negative (Negative); Blood, Urine Negative (Negative); Color,Urine YELLOW (Yellow); Glucose,Urine (UA) Negative (Negative); Ketones,Urine Negative (Negative); Leukocyte Esterase,Urine 2+ (Negative); Nitrate,Urine Negative (Negative); Protein,Urine Negative (Negative); Specific Gravity, Urine 1.015 (1.005-1.030); Urobilinogen,Urine 0.2 EU/dl (0.2)
[2022-04-15 20:39] LABS: Basophils % 0.3 % (0.1-2.0); Eosinophils % 0.2 % (0.1-12.0); Hematocrit 32.4 % (37.0-47.0); Hemoglobin 10.7 g/dL (12.2-16.2); Lymphocytes # 1.7 K/mm3 (0.7-4.5); Lymphocytes % 11.6 % (10-50); Mean Corpuscular HGB Conc 33.1 g/dL (31.8-35.4); Mean Corpuscular Volume 93.7 fl (81-99); Mean Platelet Volume 8.2 fl (7.4-10.4); Monocytes # 0.4 K/mm3 (0.1-1.0); Monocytes % 2.6 % (1.7-9.3); Neutrophils # 12.7 K/mm3 (1.8-7.8); Neutrophils % 85.2 % (37.0-80.0); Platelet Count 345 K/mm3 (142-424); Red Blood Count 3.46 M/mm3 (4.20-5.40); Red Cell Distribution Width 14.4 % (11.5-17.5); White Blood Count 14.9 K/mm3 (4.8-10.8)
[2022-04-15 20:41] VITALS: BP 119/77; PULSE 93; RESP 20; TEMP 36.8; O2SAT 98; BMI 25.7
[2022-04-15 20:42] LABS: Amphetamine/Metha Screen,Urine Negative ng/ml (<1000)
[2022-04-15 20:42] LABS: MANUAL DIFFERENTIAL MANUAL DIFFERENTIAL (MANUAL DIFF)
[2022-04-15 20:43] LABS: Barbiturates Screen,Urine Negative ng/ml (<200)
[2022-04-15 20:44] LABS: Benzodiazepines Screen,Urine Negative ng/ml (<200); Cannabinoid Screen,Urine Negative ng/ml (<50)
[2022-04-15 20:45] LABS: Cocaine Screen,Urine Negative ng/ml (<300)
[2022-04-15 20:46] LABS: Methadone Screen,Urine Negative ng/ml (<300); Opiate Screen,Urine Negative ng/ml (<300)
[2022-04-15 20:47] LABS: Phencyclidine Screen,Urine Negative ng/ml (<25)
[2022-04-15 20:55] LABS: Bacteria,Urine 1+ /lpf; WBC,Urine 50-100 #/hpf (0-3)
--- NOTE | 2022-04-15 22:55 | EXP.LABOR.NO ---
Labor Note Subjective: Date: 04/15/22 Time: 22:55 regular contraction Objective: NST:: Reactive Contractions:: every 2-3 minutes Cervical Dilation:: 6-7 Effacement:: 100% Station: -1 Membranes: artificially ruptured (I ruptured membranes and there is clear fluid.) Fetus: Monitoring?: Yes monitoring type:: External Assessment: Labor progressing?: Yes Cephalopelvic disproportion?: No All Active Problems (Updated 04/08/22 @ 15:50 by Mohamud Pizano MD) Otitis media (Acute) Tobacco use (Acute) Depression (Acute) Anxiety (Acute) Rubella non-immune status, antepartum (Acute) Infected dental caries (Acute) (Acute) Plan: Anesthesia for epidural?: Yes Continue to labor down?: Yes Plan for ?: No Continue to monitor?: Yes Start pushing?: No
--- NOTE | 2022-04-15 22:59 | EXP.OB.APHP ---
OB - H&P: HPI Antepartum History of Present Illness Chief complaint: Contractions History of present illness: She is a 27-year-old 3 para 1 aborta 1 at 39 weeks gestational age. She was scheduled to be induced this morning but did not show up and then came in this evening with regular contractions starting about 530 this afternoon. She was found to be 4-5 when she arrived and is now 6 to 7 cm. History of Present Criteria for establishing EDC:: LMP confirmed by 1st trimester US care: good care Ultrasounds: normal 1st trimester US and normal mid trimester US Obstetrical complications: none Medical complications: none Labs Blood type: A (+) positive Rubella: nonimmune RPR/VDRL: nonreactive GBS status: negative HBsAG: negative PFSH PFSH Social History Smoking Status: Current every day smoker tobacco type: cigarettes packs per day: 1 alcohol intake: never substance use type: denies use and marijuana current occupational status: unemployed Travel in the last 8 weeks: None number of children: 0 caffeine: Yes Meds Home Medications and Allergies Home Medications Medication Instructions Recorded Confirmed Type PNV 178-FA 180 mcg-om3 35 mg-dha 1 tab PO DAILY Supplement 04/15/22 04/15/22 History 25 mg-epa 5 mg-fish oil chew tablet ( Gummies (zinc chelate)) New Prescriptions to Start Prescriptions: Allergies Allergy/AdvReac Type Severity Reaction Status Date / Time No Known Allergies Allergy Verified 04/08/22 15:13 OB - H&P: Exam Physical Exam Vital signs: Temp Pulse Resp BP Pulse Ox 98.2 F 93 H 20 119/77 98 04/15/22 20:41 04/15/22 20:41 04/15/22 20:41 04/15/22 20:41 04/15/22 20:41 Constitutional no acute distress Routine HEENT Exam Head: Present normocephalic Eye: Present EOMI ENT: Present mucous membranes moist Routine Neck Exam Present supple Routine Chest/Breast/Axilla Exam Chest wall: Absent tenderness Routine Respiratory Exam Present normal respiratory effort and symmetric chest movement; Absent accessory muscle use Routine Cardiovascular Exam Present RRR Routine Abdominal Exam Present soft; Absent tenderness Routine Rectal Exam Patient deferred: visual exam Routine Exam Patient deferred: external exam Routine Extremities Exam Present full ROM; Absent cyanosis Routine Back/Spine/Pelvis Exam Back/Spine: Present full ROM Routine Skin Exam Present intact Routine Neurological Exam Present alert and oriented X3 Routine Psychiatric Exam Present normal affect OB - Results Labs Labs: Short CBC 04/15/22 Range/Units 20:08 WBC 14.9 H (4.8-10.8) K/mm3 Hgb 10.7 L (12.2-16.2) g/dL Hct 32.4 L (37.0-47.0) % Plt Count 345 (142-424) K/mm3 Urine 04/15/22 Range/Units 19:50 Urine Color Yellow (Yellow) Urine Appearance Clear (Clear) Urine pH 7.0 (5.0-8.5) Ur Specific [place] 1.015 (1.005-1.030) Urine Protein Negative (Negative) Urine Glucose (UA) Negative (Negative) OB - A/P Antepartum (1) Tobacco use: Status: Acute (2) Rubella non-immune status, antepartum: Status: Acute (3) Normal delivery: Status: Acute Additional Plan Planning to breastfeed?: No Plan: other Additional Information:: We will expect a vaginal delivery. I ruptured membranes and there is clear fluid. She has an epidural.
--- NOTE | 2022-04-15 23:35 | EXP.ANES.CKL ---
[facility] Social History Smoking Status: Current every day smoker tobacco type: cigarettes packs per day: 1 alcohol intake: never substance use type: denies use and marijuana current occupational status: unemployed Travel in the last 8 weeks: None number of children: 0 caffeine: Yes [facility] Anesthesia Checklist Patient Identification Patient Identification: Arm Band Structural Data Admitted From: Inpatient Planned Operative Procedure/s: labor epidural Consent for Planned Operative Procedure(s) Verified: Yes Verified Documents: Surgical Consent and History and Physical NPO Status Verified Time NPO: 00:00 Additional verifications Anesthesia Reactions: No Airway Assessment C-Spine Mobility Assessed: Yes TMJ Mobility Assessed: Yes Dentition: Good Dentition Neurological Assessment Level of Consciousness: Awake and Alert Anesthesia Plan Anesthesia Risk discussed: Yes Anesthesia Plan: Verified ASA Class: II Anesthesia Type: Epidural
--- NOTE | 2022-04-15 23:54 | EXP.DN ---
Delivery Note Delivery Date:: 04/15/22 Delivery Time:: 23:42 Anesthesia Type: Epidural Was labor medically induced?: No Induction method: none delivered prior to 39 weeks?: No Justification for early elective delivery:: Active Labor Gender: Male at 1 minute: 9 at 5 minutes: 9 LAC or MLE?: LAC Delivery Procedure:: She is a 27-year-old 3 para 1 aborta 1 at 39 weeks gestational age. She came in in active labor. She was found to be 4 cm and progressed to 6-7. We then ruptured membranes and under labor epidural she progressed to full dilation. She delivered spontaneously a liveborn male child at 11:42 PM in the evening of April 15, 2022. Under labor the head it was noted that there was a tight nuchal cord. I was unable to reduce the cord so elected to deliver the rest 's body atraumatically. The cord was then reduced. The baby was vigorous. He cried spontaneously. The oropharynx and nasopharynx were bulb suction. We allowed the cord to continue to pulsate for approximately 1 minute. The cord was then doubly clamped and cut and the was placed on the mother's abdomen for further care. The nurses assigned Apgars of 9 at 1 minute and 9 at 5 minutes. She had a small posterior vaginal laceration that was repaired with interrupted 3-0 Vicryl Rapide suture. The placenta then delivered with manual extraction. It was delivered intact. She has a positive blood, she is non-rubella immune and was group B streptococcus negative. She plans to bottlefeed. Estimated blood loss was approximately 200 cc. Laceration:: vaginal Placental Delivery Description: Expressed
--- NOTE | 2022-04-16 00:45 | ECG_ITS ---
APPROVED REPORT Exam: Resting ECG HR:89 bpm ECG Measurements Heart Rate 89 AXES CO 178 P 71 QRSd 79 QRS 83 QT 355 T 49 QTc 401 Conclusion SINUS RHYTHM POSSIBLE LEFT ATRIAL ENLARGEMENT [-0.1mV P-WAVE IN V1/V2] MINIMAL ST DEPRESSION [0.025+ mV ST DEPRESSION] BORDERLINE ECG UNCONFIRMED REPORT Electronically signed by : Pedro Rainey MD 04/16/2022 17:32:30
[2022-04-16 02:45] LABS: Anisocytosis 1+; Hypochromasia 1+; Lymphocytes % 17 % (10-50); Monocytes % 2 % (2-9); Neutrophils % 81 % (42-76); Platelet Estimate Normal; Total Cells Counted 100
[2022-04-16 08:22] LABS: Hematocrit 28.3 % (37.0-47.0)
[2022-04-16 08:24] LABS: Hemoglobin 9.2 g/dL (12.2-16.2)
[2022-04-16 08:40] VITALS: BP 121/60; PULSE 69; RESP 18; TEMP 36.9; O2SAT 97
--- NOTE | 2022-04-16 11:08 | P.PN_ITS ---
Subjective *Date: 04/16/22 *Time: 11:08 Interval history: She is about 12 hours post delivery. She is doing very well. She is breast- feeding. Her lochia is normal. She denies any pain. Medical Exam Vital signs and Labs for Last 24 Hours: Temp Pulse Resp BP Pulse Ox 98.5 F 69 18 121/60 97 04/16/22 08:40 04/16/22 08:40 04/16/22 08:40 04/16/22 08:40 04/16/22 08:40 Laboratory Results - last 24 hr 04/15/22 19:50: Urine Color Yellow, Urine Appearance Clear, Urine pH 7.0, Ur Specific [place] 1.015, Urine Protein Negative, Urine Glucose (UA) Negative, Urine Ketones Negative, Urine Blood Negative, Urine Nitrate Negative, Urine Bilirubin Negative, Urine Urobilinogen 0.2, Ur Leukocyte Esterase 2+ A, Urine RBC None, Urine WBC 50-100, Ur Squamous Epith Cells 5-10, Urine Bacteria 1+ 04/15/22 19:50: Urine Opiates Screen Negative, Urine Methadone Screen Negative, Ur Barbituates Screen Negative, Ur Phencyclidine Scrn Negative, Ur Amphetamines Screen Negative, U Benzodiazepines Scrn Negative, Urine Cocaine Screen Negative, U Marijuana (THC) Screen Negative 04/15/22 20:08: WBC 14.9 H, RBC 3.46 L, Hgb 10.7 L, Hct 32.4 L, MCV 93.7, MCH 31.0, MCHC 33.1, RDW 14.4, Plt Count 345, MPV 8.2, Neut % (Auto) 85.2 H, Lymph % (Auto) 11.6, [place] % (Auto) 2.6, Eos % (Auto) 0.2, Baso % (Auto) 0.3, Neut # (Auto) 12.7 H, Lymph # (Auto) 1.7, [place] # (Auto) 0.4, Eos # (Auto) 0.0, Baso # (Auto) 0.0, Total Counted 100, Neutrophils % (Manual) 81 H, Lymphocytes % (Manual) 17, Monocytes % (Manual) 2, Platelet Estimate Normal, Hypochromasia 1+, Anisocytosis 1+ 04/15/22 20:08: SARS-CoV-2 (PCR) Not detected, Influenza A Untype (PCR) Not detected, Influenza Type B (PCR) Not detected 04/15/22 20:08: Blood Type A Positive, Antibody Screen Negative 04/16/22 08:00: Hgb 9.2 L D, Hct 28.3 L I & O for Labs for Last 24 Hours: Intake & Output 04/13/22 04/14/22 04/15/22 04/16/22 11:59 11:59 11:59 11:59 Weight 150 lb Head: atraumatic Eyes: as per HPI ENT: normal exam Neck: normal inspection Respiratory: accessory muscle use or normal respiratory effort GI: soft and distention Rectal (female): deferred (female): deferred Skin: intact Assessment and Plan *Assessment and plan (1) Normal delivery: Status: Acute Category: Medical Code(s): O80 - Encounter for full-term uncomplicated delivery (2) Tobacco use: Status: Acute Category: Social Hx Code(s): Z72.0 - Tobacco use (3) Anxiety: Status: Acute Category: Medical Code(s): F41.9 - Anxiety disorder, unspecified (4) Rubella non-immune status, antepartum: Status: Acute Category: Medical Code(s): O09.899 - Supervision of other high risk pregnancies, unspecified trimester; Z28.39 - Other underimmunization status Assessment and plan all Dx Assessment and Plan All Dx:: She is doing very well . Her lochia is normal. She did have what sounds like an anxiety attack last night and had an EKG that was normal. She denies any shortness of breath, she has no tachycardia. She received 1 dose of Xanax and this seemed to help with her anxiety. We will plan to send her home tomorrow.
[2022-04-16 16:00] VITALS: BP 121/61; PULSE 58; RESP 16; TEMP 37.1; O2SAT 96
--- NOTE | 2022-04-17 08:56 | EXP.DC.SUM ---
General Admission date:: 04/15/22 Discharge date: 04/17/22 HPI HPI HPI: She is a 27-year-old 3 now para 2 aborta 1 who was 39 and 3 weeks gestational age. She came in in active labor. Hospital Course Hospital Course Hospital Course: On arrival she was garfield every 2 minutes and she progressed rapidly to full dilation. Under labor epidural she delivered spontaneously a liveborn male child at 11:42 PM in the evening of April 15, 2022. The baby was a liveborn male child weighing 6 pounds 14 ounces and was 17-1/2 inches long. He had Apgars of 9 at 1 minute and 9 at 5 minutes. She has done well and has remained afebrile without her hospitalization. She is eating and drinking and ambulating. She is breast-feeding. She does complain of some dizziness and says that she feels that the room is spinning. We will have her seen by Dr. Rainey prior to discharge. As well she scored high on her depression scale. She has had some anxiety as well. Its not clear whether the anxiety was longstanding or was result of the fact that she felt dizzy. She declined any medication for her depression at this point in time we will have her see Serina Velasquez today before discharge as well. She tried Reglan overnight to see if this would help with her dizziness but she says this did not really help. Exam Data for Last 24 hours Vital signs and Labs for Last 24 Hours: Temp Pulse Resp BP Pulse Ox 98.8 F 58 L 16 121/61 96 04/16/22 16:00 04/16/22 16:00 04/16/22 16:00 04/16/22 16:00 04/16/22 16:00 I & O for Last 24 hours: Intake & Output 04/14/22 04/15/22 04/16/22 04/17/22 11:59 11:59 11:59 11:59 Weight 150 lb Microbiology Reports for the Last 24 Hours: Microbiology 04/15/22 19:50 Urine,Clean Catch Urine Culture - Preliminary Constitutional Constitutional: no acute distress *Routine HEENT Exam Head: Present normocephalic *Routine Respiratory Exam Respiratory: Present normal respiratory effort Results Data Completed and Pending Labs on day of discharge: Preliminary micro results at discharge 04/15/22 19:50 Urine Culture - Preliminary Urine,Clean Catch DS: Diagnosis Discharge Diagnosis (1) Normal delivery: Status: Acute (2) Tobacco use: Status: Acute (3) Anxiety: Status: Acute (4) Rubella non-immune status, antepartum: Status: Acute (5) Depression: Status: Acute (6) Dizziness: Status: Acute Meds Home Medications and Allergies Home Medications Medication Instructions Recorded Confirmed Type PNV 178-FA 180 mcg-om3 35 mg-dha 1 tab PO DAILY Supplement 04/15/22 04/15/22 History 25 mg-epa 5 mg-fish oil chew tablet ( Gummies (zinc chelate)) New Prescriptions to Start Prescriptions: Allergies Allergy/AdvReac Type Severity Reaction Status Date / Time No Known Allergies Allergy Verified 04/08/22 15:13 Discharge Plan Disposition Patient Disposition: Home, Self-Care Discharge Order Discharge Orders: Discharge Order (Routine); Ordered 04/17/22 Ordered By: Mohamud Pizano Follow up Plan Prescriptions/Medication Reconciliation: Continued Gummies(zinc chelate) 180 mcg-35 mg- 25 mg-5 mg tablet,chewable 1 tab PO DAILY Problem Reconciliation Problems Reviewed?: Yes Patient Discharge Instructions ACTIVITY: No heavy lifting DIET: continue same diet Patient Instructions: Depression, Hemorrhage, DI for Labor and Delivery, Vaginal , DI for Pre-eclampsia, [facility] Post Discharge Instructions, Preventing the Spread of Coronavirus Discharge Instructions Providers Primary Care Provider: Mohamud Pizano Admit Provider: Mohamud Pizano Attending Provider: Mohamud Pizano
--- NOTE | 2022-04-17 10:30 | EXP.MED.CON ---
History of Present Illness *Admission Date: 04/15/22 *Reason for visit:: Consult for dizziness *History of present illness: She is a 27-year-old 3 now para 2 aborta 1 who was 39 and 3 weeks gestational age. Patient was admitted by OB for labor and delivery. This was accomplished successfully. I am asked to consult patient today because of ongoing dizziness. She is had dizziness for the past couple of months. She described a sensation of vertiginous symptoms especially when getting up and moving around especially at work. She was seen in our offices and was diagnosed with serous otitis, but not placed on medication because of her . She denies neurologic symptoms of dysarthria, dysphagia, visual symptoms or gait disturbance. PFSH PFS Social History Smoking Status: Current every day smoker tobacco type: cigarettes packs per day: 1 alcohol intake: never substance use type: denies use and marijuana current occupational status: unemployed Travel in the last 8 weeks: None number of children: 0 caffeine: Yes Review of Systems Review of Systems Review of systems:: pertinent systems reviewed and negative unless documented below Meds Home Medications and Allergies Home Medications Medication Instructions Recorded Confirmed Type PNV 178-FA 180 mcg-om3 35 mg-dha 1 tab PO DAILY Supplement 04/15/22 04/15/22 History 25 mg-epa 5 mg-fish oil chew tablet ( Gummies (zinc chelate)) New Prescriptions to Start Prescriptions: Allergies Allergy/AdvReac Type Severity Reaction Status Date / Time No Known Allergies Allergy Verified 04/08/22 15:13 Results Labs Result Diagrams: 04/16/22 08:00 Labs: H & H 04/15/22 04/16/22 Range/Units 20:08 08:00 Hgb 10.7 L 9.2 L D (12.2-16.2) g/dL Hct 32.4 L 28.3 L (37.0-47.0) % All other labs normal. Assessment and Plan *Assessment and plan (1) Dizziness: Status: Acute Category: Medical Code(s): R42 - Dizziness and giddiness Plan Patient symptoms most consistent with BPV/vertigo with possible overlay of serous otitis based on her ear findings. I recommended Claritin OTC given the fact that she is breast-feeding. I will see her in my office on Thursday when her baby comes back in for a weight check.
--- NOTE | 2022-04-17 11:48 | SW/DCPLANNER ---
I received a referral on this patient regarding: need for community resources, anxiety/depression and lack of transportation. OB nurse (Rosalia Oakley) stated that Uyen Johnson has been consulted and will see this patient prior to discharge today. Patient did delivered infant male (Vipul Navarro) on 04/15/22. Patient stated that infant's father (Tien Navarro 08/12/95) is involved but is currently incarcerated. Patient, paternal grandmother (Stella Baez) and patient's other child (Marleni Navarro 04/22/21) will reside at [address] [place] [address]. Patient's contact number is [phone]. Patient stated she has not had any past Social Service involvement. Patient is established with [facility] and is interested in HANDS for both children: I will make a referral to Uyen bravo/ [facility]. Patient stated she has the following items at home: crib, carseat, clothing, diapers, bottle/breast feeding. Patient clarified that she does have transportation. Patient is expected to discharge today and plans for infant to follow up with Dr Santos.
== END 2022-04-17 12:00 | disposition home or self-care (01) | DRG 807 ==
LOC: OBOUT 20:53 → OB 20:53
PROVIDERS: Admitting Provider Nurse Practitioner Obstetrics & Gynecology; PCP Nurse Practitioner Obstetrics & Gynecology; Visit Provider Nurse Practitioner Obstetrics & Gynecology
DX: O69.81X0 Labor and delivery complicated by cord around neck, without compression, not applicable or unspecified (principal); Z37.0 Single live birth; Z3A.39 39 weeks gestation of pregnancy; O99.334 Smoking (tobacco) complicating childbirth; O70.0 First degree perineal laceration during delivery
CPT/HCPCS: 59409; 36415; 59025; 80305; 81001; 85007; 85014; 85018; 85025; 86850; 87086; 93005; 94761; C9803; G0283; J2405; U0003; U0005

== ENCOUNTER 2022-04-19 00:03 | Observation (INO) | payer MEDICAID, SELFPAY ==
[2022-04-18 23:35] VITALS: BP 146/96; PULSE 74; RESP 18; TEMP 36.9; O2SAT 98
--- NOTE | 2022-04-18 23:46 | PC.NURSE ---
pt arrived to unit c/o a headache that started around 3pm and has gotten worse,she has taken tylenol and it has not helped.c/o dizziness,like she is off balance like vertigo,initial b/p was 146/96,dtrs brisk,no clonus,no swelling noted
[2022-04-18 23:50] VITALS: BP 152/93; PULSE 59; RESP 18; TEMP 36.9; O2SAT 98
[2022-04-19] VITALS (37 sets, daily range): BP systolic 106–185; BP diastolic 63–100; PULSE 55–81; RESP 16–18; TEMP 36.6–36.9; O2SAT 97–98; BMI 26.0
--- NOTE | 2022-04-19 | PC.NURSE ---
NOTIFIED OF PT ARRIVAL AND HER LAST 2 B/P,PT C/O H/A AND DIZZINESS,STARTED AT 3PM ON 04/18 AND HAS GOTTEN WORSE,TYLENOL DID NOT HELP.DTR'S BRISK,NO EDEMA,ADMIT FOR OBSERVATION,START MAG.SULFATE 4 GM BOLUS,THEN 2 GRAMS H/R,LR AT 75ML,PIH LABS,REG.DIET,COVID SWAB
[2022-04-19 00:40] LABS: Basophils # 0.1 K/mm3 (0-0.2); Basophils % 0.6 % (0.1-2.0); Eosinophils # 0.1 K/mm3 (0.0-0.4); Eosinophils % 1.3 % (0.1-12.0); Hematocrit 31.5 % (37.0-47.0); Hemoglobin 10.7 g/dL (12.2-16.2); Lymphocytes # 2.4 K/mm3 (0.7-4.5); Lymphocytes % 22.3 % (10-50); Mean Corpuscular HGB Conc 33.8 g/dL (31.8-35.4); Mean Corpuscular Hemoglobin 31.5 pg (27.0-31.2); Mean Platelet Volume 7.9 fl (7.4-10.4); Monocytes # 0.3 K/mm3 (0.1-1.0); Monocytes % 3.2 % (1.7-9.3); Neutrophils # 7.7 K/mm3 (1.8-7.8); Neutrophils % 72.6 % (37.0-80.0); Platelet Count 414 K/mm3 (142-424); Red Blood Count 3.39 M/mm3 (4.20-5.40); Red Cell Distribution Width 14.5 % (11.5-17.5); White Blood Count 10.6 K/mm3 (4.8-10.8)
[2022-04-19 00:44] LABS: Coronavirus 19, PCR Not Detected (NotDetected); Influenza A, PCR Not Detected (NotDetected); Influenza B, PCR Not Detected (NotDetected)
[2022-04-19 00:57] LABS: Activated Partial Thrombo Time 23.7 seconds (22.8-30.6); Fibrinogen 348 mg/dL (229.9-363.5); INR 0.85 (0.9-1.1); Prothrombin Time 9.3 seconds (10.1-12.5)
[2022-04-19 01:00] LABS: D-Dimer 1.19 ug/mL (0.0-0.5)
[2022-04-19 01:05] LABS: Anion Gap 9.5 mEq/L (5-15); Carbon Dioxide 25 mmol/L (22.0-30.0); Chloride 111 mmol/L (98-107); Potassium 3.5 mmoL/L (3.5-5.1); Sodium 142 mmol/L (136-145)
[2022-04-19 01:06] LABS: Alanine Aminotransferase 10 U/L (12-78); Aspartate Amino Transferase 17 U/L (14-36); Blood Urea Nitrogen 3 mg/dl (7-17); Calcium 7.7 mg/dl (8.4-10.2); Creatinine Clearance Estimated 110 mL/min (50-200); Estimated Glomerular Filt Rate 85 ml/min (>60); GFR (African American) 103 ML/MIN (>60); Glucose 80 mg/dl (74-100)
[2022-04-19 01:14] LABS: Uric Acid 4.4 mg/dl (2.5-6.2)
[2022-04-19 01:35] LABS: Magnesium 1.7 mg/dl (1.6-2.3)
--- NOTE | 2022-04-19 05:30 | PC.NURSE ---
PROVIDED PT WITH SOME JELLO,ICE CREAM AND DORIS MIST
--- NOTE | 2022-04-19 05:53 | PC.NURSE ---
PT HAS SLEPT,B/P HAVE BEEN IN THE 140-149/82-92,C/O [place] AGAIN THIS MORNING RATING IT A 5 ON SCALE OF 0-10,DENIES NEEDING ANY PAIN MEDICINE FOR IT,LUNGS CLEAR,RESP.EVEN AND UNLABORED.DTR'S SLIGHT BRISK,NO CLONUS,ASSISTED PT WITH IV POLE TO BATHROOM WHERE SHE VOIDED 700ML
--- NOTE | 2022-04-19 06:46 | PC.NURSE ---
PROVIDED PT WITH ANOTHER DORIS MIST AND ICE CREAM,NO OTHER NEEDS OR CONCERNS VOICED
--- NOTE | 2022-04-19 09:04 | [facility].PHAINT1 ---
Pharmacy Intervention Comments: MEDICATION RECONCILIATION COMPLETED ON PATIENT USING EXTERNAL FILL HISTORY FROM PHARMACY. -DOYLE ANTHONY, FAND
--- NOTE | 2022-04-19 10:06 | PC.NURSE ---
Dr. Pizano called for an update on Pt. V/S reported. telephone orders given to start 200mg Labetalol PO Q12H. Orders v/r
--- NOTE | 2022-04-19 11:12 | EXP.HP ---
History of Present Illness *Admission Date: 04/18/22 *Reason for visit:: Headache and increased blood pressure *History of present illness: She is a 27-year-old 3 para 2 aborta 1 who delivered approximately 4 days ago. She came in complaining of headache. Her blood pressures were found to be elevated in the 140s over 90 range. As result of that she is admitted for magnesium sulfate and control of her blood pressure. [facility] Social History Smoking Status: Current every day smoker tobacco type: cigarettes packs per day: 1 alcohol intake: never substance use type: denies use and marijuana current occupational status: unemployed Travel in the last 8 weeks: None number of children: 0 caffeine: Yes Review of Systems Review of Systems Review of systems:: pertinent systems reviewed and negative unless documented below Meds Home Medications and Allergies Home Medications Medication Instructions Recorded Confirmed Type PNV 178-FA 180 mcg-om3 35 mg-dha 1 tab PO DAILY Supplement 04/15/22 04/19/22 History 25 mg-epa 5 mg-fish oil chew tablet ( Gummies (zinc chelate)) loratadine 10 mg tablet 10 mg PO DAILY Allergy symptoms 04/19/22 04/19/22 History metoclopramide HCl 10 mg tablet 10 mg PO AC stomach 04/19/22 04/19/22 History (Reglan) New Prescriptions to Start Prescriptions: Allergies Allergy/AdvReac Type Severity Reaction Status Date / Time No Known Allergies Allergy Verified 04/08/22 15:13 Exam Data for Last 24 hours Vital signs and Labs for Last 24 Hours: Temp Pulse Resp BP Pulse Ox 97.9 F 67 17 134/82 98 04/19/22 05:13 04/19/22 09:13 04/19/22 05:13 04/19/22 09:13 04/19/22 08:30 Laboratory Results - last 24 hr 04/19/22 00:25: WBC 10.6, RBC 3.39 L, Hgb 10.7 L, Hct 31.5 L, MCV 93.0, MCH 31.5 H, MCHC 33.8, RDW 14.5, Plt Count 414, MPV 7.9, Neut % (Auto) 72.6, Lymph % (Auto) 22.3, [place] % (Auto) 3.2, Eos % (Auto) 1.3, Baso % (Auto) 0.6, Neut # (Auto) 7.7, Lymph # (Auto) 2.4, [place] # (Auto) 0.3, Eos # (Auto) 0.1, Baso # (Auto) 0.1 04/19/22 00:25: PT 9.3 L, INR 0.85 L, APTT 23.7, Fibrinogen 348 04/19/22 00:25: D-Dimer 1.19 H, Sodium 142, Potassium 3.5, Chloride 111 H, Carbon Dioxide 25, Anion Gap 9.5, BUN 3 L, Creatinine 0.80, Estimated Creat Clear 110, Estimated GFR 85, Est GFR ( Amer) 103, Glucose 80, Uric Acid 4.4, Calcium 7.7 L, AST 17, ALT 10 L 04/19/22 00:25: SARS-CoV-2 (PCR) Not detected, Influenza A Untype (PCR) Not detected, Influenza Type B (PCR) Not detected 04/19/22 00:25: Blood Type A Positive, Antibody Screen Negative 04/19/22 00:25: Magnesium 1.7 I & O for Last 24 hours: Intake & Output 04/16/22 04/17/22 04/18/22 04/19/22 11:59 11:59 11:59 11:59 Intake Total 776 / 776 Output Total 2300 / 2300 Balance -1524 / -1524 Weight 147 lb Constitutional Constitutional: no acute distress *Routine HEENT Exam Head: Present normocephalic Eye: Present EOMI and PERRL ENT: Present mucous membranes moist *Routine Neck Exam Neck: Present supple and full ROM *Routine Respiratory Exam Respiratory: Absent accessory muscle use (good air entry bilaterally), wheezes or crackles *Routine Cardiovascular Exam Cardiovascular: Present RRR; Absent murmur *Routine Abdominal Exam Abdominal: Present soft and normoactive bowel sounds; Absent tenderness, rebound, guarding or mass *Routine Rectal Exam Rectal:: deferred *Routine Genitalia Exam Genitalia:: deferred *Routine Extremities Exam Extremities: Present full ROM; Absent cyanosis, edema or calf tenderness *Routine Skin Exam Skin: Present intact (good color) *Routine Neurological Exam Neurological: Present alert and oriented X3 Routine Psychiatric Exam Psychiatric: Present normal affect Detailed Rectal Exam Patient deferred: visual exam and digital exam Detailed Exam Patient deferred: external exam, groin exam and perineal
--- NOTE | 2022-04-19 16:46 | PC.NURSE ---
Pt has rested well this shift. BLT lungs CTA. Bowel sounds present in all 4 quadrants. Pt is on RA. IV patent and infusing well. Pt requires x1 assistance to the bedside commode r/t weakness from medication. DTR's +2. Pt denies any SOA, headache, N/V, spots before eyes, or blurred vision. VSS
--- NOTE | 2022-04-19 20:15 | PC.NURSE ---
WITH ASSESSMENT PT ASKED HOW LONG WOULD SHE FEEL THIS WAY,WEAK AND DRAINED,TOLD HER THAT DOCTOR TRICIA SAID SHE COULD HAVE THE MAG.TURNED OFF AT MIDNIGHT AND SHE SHOULD START TO FEEL BETTER,PT HAS ONLY A LITTLE LEFT OF THE MAG.SULFATE,WILL CALL TRICIA TO SEE IF CAN BE TURNED OFF SOONER
--- NOTE | 2022-04-19 21:10 | PC.NURSE ---
MAG SULFATE DISCONTINUED AND PT SALINE LOCKED
--- NOTE | 2022-04-19 22:00 | PC.NURSE ---
S.O. HAD BROUGHT UP TO STAY,CRIB AND BLANKETS PROVIDED,FORMULA ALSO PROVIDED SINCE PT IS PUMPING AND DUMPING WHERE SHE WAS ON MAG.SULFATE
[2022-04-20 02:34] VITALS: BP 132/75; PULSE 78; RESP 17; TEMP 36.6; O2SAT 97
[2022-04-20 04:26] VITALS: BP 154/78; PULSE 70; RESP 18; TEMP 36.8; O2SAT 97
--- NOTE | 2022-04-20 04:30 | PC.NURSE ---
PT REPORTS FEELING BETTER NOT WEAK,STILL HAVING TIMES BEING LIGHT HEADED.DENIES ANY HEADACHE,DTR'S NORMAL,B/P THIS MORNING WAS 154/78 ,BUT SHE WAS TRYING TO FEED INFANT AND HE WAS CRYING.HER B/P HAS BEEN 110-132/68-86.LUNGS CLEAR,RESP.EVEN AND UNLABORED.PT HAS VOIDED 900 ML THIS SHIFT
[2022-04-20 06:20] VITALS: BP 129/77; PULSE 81
[2022-04-20 08:45] VITALS: BP 126/86; PULSE 81; RESP 16; TEMP 37.1; O2SAT 97
--- NOTE | 2022-04-20 09:43 | EXP.DC.SUM ---
General Admission date:: 04/19/22 Discharge date: 04/20/22 HPI HPI HPI: She is a 27-year-old 3 para 2 aborta 1 who delivered approximately 4 days ago. She came in complaining of headache. Her blood pressures were found to be elevated in the 140s over 90 range. As result of that she is admitted for magnesium sulfate and control of her blood pressure. Hospital Course Hospital Course Hospital Course: She was admitted and started on IV magnesium sulfate for approximately 24 hours. Her blood pressures remain slightly elevated and as result of that we elected to start labetalol 200 mg twice daily. Her blood pressures are now stable. She denies any headache. She feels well. She continues to breast-feed. All of her blood work was completely normal with respect to help syndrome. Exam Data for Last 24 hours Vital signs and Labs for Last 24 Hours: Temp Pulse Resp BP Pulse Ox 98.7 F 81 16 126/86 97 04/20/22 08:45 04/20/22 08:45 04/20/22 08:45 04/20/22 08:45 04/20/22 08:45 I & O for Last 24 hours: Intake & Output 04/17/22 04/18/22 04/19/22 04/20/22 11:59 11:59 11:59 11:59 Intake Total 776 / 776 Output Total 2300 / 2300 5100 / 5100 Balance -1524 / -1524 -5100 / -5100 Weight 147 lb Constitutional Constitutional: no acute distress *Routine HEENT Exam Head: Present normocephalic *Routine Respiratory Exam Respiratory: Present normal respiratory effort DS: Diagnosis Discharge Diagnosis (1) Normal delivery: Status: Acute (2) Preeclampsia in period: Status: Acute Meds Home Medications and Allergies Home Medications Medication Instructions Recorded Confirmed Type PNV 178-FA 180 mcg-om3 35 mg-dha 1 tab PO DAILY Supplement 04/15/22 04/19/22 History 25 mg-epa 5 mg-fish oil chew tablet ( Gummies (zinc chelate)) loratadine 10 mg tablet 10 mg PO DAILY Allergy symptoms 04/19/22 04/19/22 History metoclopramide HCl 10 mg tablet 10 mg PO AC stomach 04/19/22 04/19/22 History (Reglan) labetalol 100 mg tablet 200 mg PO Q12H #60 tabs 04/20/22 Rx New Prescriptions to Start Prescriptions: labetalol Mohamud Pizano Allergies Allergy/AdvReac Type Severity Reaction Status Date / Time No Known Allergies Allergy Verified 04/08/22 15:13 Discharge Plan Disposition Patient Disposition: Home, Self-Care Follow up Plan Prescriptions/Medication Reconciliation: New labetalol 100 mg Tablet 200 mg PO Q12H Qty: 60 1RF Continued Gummies(zinc chelate) 180 mcg-35 mg- 25 mg-5 mg tablet,chewable 1 tab PO DAILY metoclopramide HCl [Reglan] 10 mg tablet 10 mg PO AC Rx Instructions: administer 30 minutes before meals loratadine 10 mg tablet 10 mg PO DAILY Problem Reconciliation Problems Reviewed?: Yes Patient Discharge Instructions ACTIVITY: No heavy lifting DIET: continue same diet Providers Primary Care Provider: Pedro Rainey Admit Provider: Mohamud Pizano Attending Provider: Mohamud Pizano
--- NOTE | 2022-04-20 11:00 | PC.NURSE ---
IV D/C and D/C teaching provided at this time
== END 2022-04-20 11:00 | disposition home or self-care (01) ==
LOC: OBOUT 00:06 → OB 00:06
PROVIDERS: Admitting Provider Nurse Practitioner Obstetrics & Gynecology; PCP Internal Medicine Adolescent Medicine; Visit Provider Nurse Practitioner Obstetrics & Gynecology
DX: O14.95 Unspecified pre-eclampsia, complicating the puerperium (principal); Z20.822 Contact with and (suspected) exposure to COVID-19
CPT/HCPCS: 80048; 83735; 84450; 84460; 84550; 85025; 85378; 85384; 85610; 85730; 86850; C9803; G0378; U0003; U0005

== ENCOUNTER 2022-05-03 03:04 | Emergency (ER) | payer MEDICAID, SELFPAY ==
[2022-05-03 03:31] VITALS: BMI 25.7
[2022-05-03 03:33] VITALS: BP 165/109; BP 168/112; PULSE 84; RESP 16; TEMP 36.8; O2SAT 98; BMI 23.9
[2022-05-03 03:36] LABS: Microscopic, Urine URINE MICROSCOPIC (MICROSCOPIC)
[2022-05-03 03:38] LABS: Appearance,Urine CLEAR (Clear); Bilirubin,Urine Negative (Negative); Blood, Urine 3+ (Negative); Color,Urine YELLOW (Yellow); Glucose,Urine (UA) Negative (Negative); Ketones,Urine Negative (Negative); Leukocyte Esterase,Urine 2+ (Negative); Nitrate,Urine Negative (Negative); Protein,Urine Negative (Negative); Specific Gravity, Urine 1.015 (1.005-1.030); Urobilinogen,Urine 0.2 EU/dl (0.2)
[2022-05-03 03:40] LABS: Urine Pregnancy, HCG Qual. Negative (Negative)
--- NOTE | 2022-05-03 03:40 | CT_ITS ---
PROCEDURE INFORMATION: Exam: CT Head Without Contrast Exam date and time: 05/03/2022 3:50 AM Age: 27 years old Clinical indication: Pain; Headache; Additional info: Severe VILLANUEVA, dizziness TECHNIQUE: Imaging protocol: Computed tomography of the head without contrast. Radiation optimization: All CT scans at this facility use at least one of these dose optimization techniques: automated exposure control; mA and/or kV adjustment per patient size (includes targeted exams where dose is matched to clinical indication); or iterative reconstruction. COMPARISON: No relevant prior studies available. FINDINGS: Brain: No intracranial hemorrhage. No mass. No definite edema. Cerebral ventricles: No hydrocephalus. Paranasal sinuses: No acute sinusitis. Mastoid air cells: No significant effusion. Orbital cavities: Unremarkable as visualized. Bones/joints: No acute fracture. Soft tissues: Unremarkable. IMPRESSION: No definite acute intracranial abnormality. If symptoms persist, consider MRI.
[2022-05-03 03:42] LABS: RBC,Urine 20-50 #/hpf (0-3); WBC,Urine 20-50 #/hpf (0-3)
[2022-05-03 03:59] LABS: Chloride 102 mmol/L (98-107)
[2022-05-03 04:00] LABS: Potassium 3.9 mmoL/L (3.5-5.1); Sodium 138 mmol/L (136-145)
[2022-05-03 04:02] LABS: Alanine Aminotransferase 13 U/L (12-78); Aspartate Amino Transferase 23 U/L (14-36); Blood Urea Nitrogen 12 mg/dl (7-17); Creatinine Clearance Estimated 101 mL/min (50-200); Estimated Glomerular Filt Rate 85 ml/min (>60); GFR (African American) 103 ML/MIN (>60)
[2022-05-03 04:03] LABS: Albumin Level 4.5 g/dl (3.5-5.0); Albumin/Globulin Ratio 1.3 (1.1-1.8); Alkaline Phosphatase 114 U/L (38-126); Anion Gap 13.9 mEq/L (5-15); Basophils # 0.1 K/mm3 (0-0.2); Bilirubin,Total 0.2 mg/dl (0.2-1.3); Calcium 9.3 mg/dl (8.4-10.2); Carbon Dioxide 26 mmol/L (22.0-30.0); Eosinophils # 0.1 K/mm3 (0.0-0.4); Eosinophils % 1.3 % (0.1-12.0); Globulin 3.5 g/dL (1.3-3.2); Glucose 91 mg/dl (74-100); Hematocrit 39.6 % (37.0-47.0); Monocytes # 0.3 K/mm3 (0.1-1.0)
[2022-05-03 04:07] LABS: Basophils % 0.9 % (0.1-2.0); Hemoglobin 12.6 g/dL (12.2-16.2); Lymphocytes # 1.6 K/mm3 (0.7-4.5); Lymphocytes % 20.3 % (10-50); Mean Corpuscular HGB Conc 31.8 g/dL (31.8-35.4); Mean Corpuscular Hemoglobin 29.9 pg (27.0-31.2); Mean Platelet Volume 7.5 fl (7.4-10.4); Monocytes % 4.4 % (1.7-9.3); Neutrophils # 5.7 K/mm3 (1.8-7.8); Neutrophils % 73.1 % (37.0-80.0); Red Blood Count 4.21 M/mm3 (4.20-5.40); Red Cell Distribution Width 14.3 % (11.5-17.5); White Blood Count 7.8 K/mm3 (4.8-10.8)
[2022-05-03 04:08] LABS: Platelet Count 611 K/mm3 (142-424)
[2022-05-03 04:26] VITALS: BP 152/97; PULSE 78; RESP 16; TEMP 36.8; O2SAT 98
--- NOTE | 2022-05-03 04:29 | PC.NURSE ---
Patient chose to leave ER without being seen by MD. Patient had young children with her with her mother whom she states just got off of work and cannot stay at the ER. Advised patient to follow up with her pcp and return to ER with any worsening symptoms. Pt expressed anxiety about taking her prescription medications for motion sickness with her blood pressure medication. Advised patient to speak with her pharmacist or pcp regarding the two medications and risks involved with taking them concurrently. Pt is alert oriented and stable upon dc.
== END 2022-05-03 04:26 | disposition left against medical advice (07) ==
PROVIDERS: Emergency Provider Emergency Medicine; PCP Internal Medicine Adolescent Medicine
DX: R51.9 Headache, unspecified (principal); R29.810 Facial weakness; Z53.21 Procedure and treatment not carried out due to patient leaving prior to being seen by health care provider
CPT/HCPCS: 70450; 80053; 81001; 81025; 85025; 87086; 87088; 87186; 99284

== ENCOUNTER → 2022-06-02 08:59 | Outpatient (CLI) | payer MEDICAID, SELFPAY ==
--- NOTE | 2022-06-02 09:05 | MR_ITS ---
FINAL REPORT CLINICAL HISTORY: recurrent vertigo. VERTIGO FOR 3 MONTHS. HEADACHE. FINDINGS: Multiplanar MR imaging of the brain was performed without contrast. There is no evidence of intracranial hemorrhage or mass. The ventricular size is normal. There is no evidence of shift of the midline structures. No abnormal extra-axial fluid collection is identified. The posterior fossa and brainstem have an unremarkable appearance. No area of abnormal restricted diffusion is identified. Normal major vessel vascular flow voids are seen. IMPRESSION: Unremarkable brain with no acute intracranial abnormality. Reviewed, Interpreted and Dictated by Jose Hoang III, MD Transcribed by Lorene Boswell Authenticated and . [facility]
== END ==
PROVIDERS: PCP Internal Medicine Adolescent Medicine; Visit Provider Specialist
DX: H81.399 Other peripheral vertigo, unspecified ear (principal)
CPT/HCPCS: 70551

== ENCOUNTER → 2022-06-03 15:17 | Outpatient (CLI) | payer MEDICAID, SELFPAY | PROVIDERS: PCP Internal Medicine Adolescent Medicine; Visit Provider Specialist | DX: R42 Dizziness and giddiness (principal); I95.89 Other hypotension | CPT/HCPCS: 93225; 93226 ==

== ENCOUNTER 2022-06-03 15:28 | Outpatient (RCR) | payer MEDICAID, SELFPAY ==
--- NOTE | 2022-06-03 16:40 | HMH.PTOPEV ---
PT Outpatient Evaluation Rehab PT Outpatient Evaluation Start: 06/03/22 16:18 Freq: Status: Active Protocol: Document 06/03/22 16:18 CONSTANZA (Rec: 06/03/22 16:40 CONSTANZA [id number]) E-signed By iRley Velasquez, PT Outpatient Therapy Subjective History Subjective History This is the initial Physical Therapy evaluation for Enedelia Rubi. Pt is a 27 y/o female referred to PT for vestibular rehab due to diagnosis of vertigo. Pt reports originally S&S began in February. Pt reports insidious onset of dizziness and spinning feeling . Pt reports this lasted for several hours, and required ER visit. Pt reports she has had several occurrences since then. None have lasted more than a few minutes, and most were with turning or rolling. Pt does report she feels like she is off and her body is rocking even when she is not having spells. Chief Complaint Other Symptom Type Other Symptoms Relieved By Nothing,Rest/Positioning Symptoms Aggravated By Bending/Stooping,Twisting Prior Functional Limitations None Current Functional Limitations Housework,Driving,Sleeping, Recreation Activity Symptom Description Intermittent Balance Eval Chief Complaint vertigo Yes Did you feel dizzy, unsteady or faint? Yes Activity at onset unknown Hx of Falls Hx Falls No Gait/Posture Asssessment General Gait Observation No Deviations/Normal Assistive Devices None / NA Level of Transfer Assist Independent Hip Observation in Gait Swing No Deviation Hip Observation in Gait Stance No Deviation Ankle/Foot Observation in Gait Swing No Deviation Ankle/Foot Observation in Gait Stance No Deviation Hip Posture Standing Position (L) Neutral,(R) Neutral Body Alignment Posture Relaxed Nystagmus Nystagmus Presence None Timed Up and Go Test 3. Is the Timed Up and Go Test result < yes 12 seconds? Oculomotor Gaze Oculomotor Gaze Nml: Vergence Smooth Pursuit Saccades VOR Cancellation
== END 2022-06-03 15:30 | disposition home or self-care (01) ==
LOC: PT 15:28
PROVIDERS: PCP Internal Medicine Adolescent Medicine; Visit Provider Specialist
DX: H81.399 Other peripheral vertigo, unspecified ear (principal)
CPT/HCPCS: 97163

== ENCOUNTER → 2022-07-18 13:16 | Outpatient (CLI) | payer MEDICAID, SELFPAY | PROVIDERS: PCP Internal Medicine Adolescent Medicine; Visit Provider Specialist | DX: I49.9 Cardiac arrhythmia, unspecified (principal) | CPT/HCPCS: 93306 ==

== ENCOUNTER → 2022-12-17 14:49 | Outpatient (CLI) | payer MEDICAID, SELFPAY ==
[2022-12-17 17:02] LABS: HCG,Quantitative 9123 mIU/ml (0-5.42)
[2022-12-19 12:30] LABS: Progesterone 14.7 ng/mL (.)
== END ==
PROVIDERS: PCP Internal Medicine Adolescent Medicine; Visit Provider Nurse Practitioner Obstetrics & Gynecology
DX: N92.6 Irregular menstruation, unspecified (principal); Z32.00 Encounter for pregnancy test, result unknown
CPT/HCPCS: 36415; 84144; 84702

== ENCOUNTER → 2023-01-08 20:49 | Outpatient (CLI) | payer MEDICAID, SELFPAY ==
[2023-01-13 05:09] LABS: Neisseria gonorrhoeae, NAA Negative (Negative)
== END ==
PROVIDERS: Visit Provider Nurse Practitioner Obstetrics & Gynecology
DX: Z34.90 Encounter for supervision of normal pregnancy, unspecified, unspecified trimester (principal)
CPT/HCPCS: 87086; 87088; 87186; 87491; 87591

== ENCOUNTER → 2023-01-12 16:03 | Outpatient (CLI) | payer MEDICAID, SELFPAY ==
--- NOTE | 2023-01-12 16:04 | US_ITS ---
PROCEDURE: US OB <= 14 WEEKS FETUS CLINICAL INDICATION: for dates COMPARISON: No exams were available for comparison FINDINGS: From her last menstrual period she is 10 weeks and 0 days. An intrauterine gestational sac is present with a pole with a crown-rump length of 2.3cm correlating to gestational age of 9weeks. heart tones are present with an FHR of 176bpm. Yolk sac is noted. The yolk sac measures 5.7 mm. There appears to be a small area of subchorionic blood. The right ovary is seen and appears normal. There is a small corpus luteum on the right ovary. The left ovary appears normal there is a simple cyst adjacent to the left ovary that may be a hydatid of Morgagni. There is no fluid in the cul-de-sac. IMPRESSION: Estimated due date by Ultrasound is 08/17/2023 The dates her off by a week from her last menstrual period. heart rate activity is seen. Both ovaries are seen and appear normal. There may be a small paratubal cyst associated with the left ovary. Dictated by: Mohamud Pizano MD 01/14/2023 12:03 Mohamud Pizano MD in [facility] 01/14/2023 12:03
== END ==
PROVIDERS: PCP Internal Medicine Adolescent Medicine; Visit Provider Nurse Practitioner Obstetrics & Gynecology
DX: Z34.90 Encounter for supervision of normal pregnancy, unspecified, unspecified trimester (principal)
CPT/HCPCS: 76801

== ENCOUNTER → 2023-03-09 13:10 | Outpatient (CLI) | payer MEDICAID, SELFPAY ==
[2023-03-09 13:38] LABS: Basophils % 0.3 % (0.1-2.0); Eosinophils # 0.1 K/mm3 (0.0-0.4); Eosinophils % 0.8 % (0.1-12.0); Hematocrit 37.6 % (37.0-47.0); Hemoglobin 12.7 g/dL (12.2-16.2); Lymphocytes % 18.9 % (10-50); Mean Corpuscular HGB Conc 33.6 g/dL (31.8-35.4); Mean Corpuscular Hemoglobin 30.1 pg (27.0-31.2); Mean Corpuscular Volume 89.5 fl (81-99); Mean Platelet Volume 7.5 fl (7.4-10.4); Monocytes # 0.4 K/mm3 (0.1-1.0); Monocytes % 3.3 % (1.7-9.3); Neutrophils # 8.2 K/mm3 (1.8-7.8); Neutrophils % 76.7 % (37.0-80.0); Platelet Count 310 K/mm3 (142-424); Red Blood Count 4.21 M/mm3 (4.20-5.40); Red Cell Distribution Width 13.6 % (11.5-17.5); White Blood Count 10.7 K/mm3 (4.8-10.8)
[2023-03-10 12:12] LABS: Rapid Plasma Reagin Ab Titer Non Reactive (NonRea<1:1)
[2023-03-27 08:24] LABS: HIV Screen 4th Generation wRfx Non Reactive; Hepatitis B Surface Antigen Negative; Hepatitis C Antibody Non Reactive
[2023-03-27 08:25] LABS: Rubella Antibodies, IgG <0.9
== END ==
PROVIDERS: Nurse Practitioner Obstetrics & Gynecology; PCP Internal Medicine Adolescent Medicine; Visit Provider Radiology Diagnostic Radiology
DX: Z34.91 Encounter for supervision of normal pregnancy, unspecified, first trimester (principal); Z3A.17 17 weeks gestation of pregnancy
CPT/HCPCS: 36415; 85025; 86593; 86703; 86762; 86850; 87340; 87380; G0432

== ENCOUNTER → 2023-03-30 08:51 | Outpatient (CLI) | payer MEDICAID, SELFPAY ==
--- NOTE | 2023-03-30 08:52 | US_ITS ---
PROCEDURE: US OB /MATERNAL DETAIL CLINICAL INDICATION: 20 week anatomy scan COMPARISON: US US OB <= 14 WEEKS FETUS from 01/12/2023 FINDINGS: Transabdominal sonographic images of the uterus were obtained. From her established due date she is 20 weeks 0 days. Single viable intrauterine gestation. Cephalic position. Placenta: Anteriorplacenta grade 1. There are several placental lakes. Possible posterior accessory lobe. There is average amount fluid. The cervix appears satisfactory. Closed and measuring 3.9 cm in length. Complete survey performed and was unremarkable on the submitted images as in PACS. No discrete anomalies identified on survey imaging by technologist. Active fetus. Three-vessel cord with satisfactory umbilical cord insertion. 4- chamber heart noted. Aortic arch, RVOT LVOT appear normal. Survey of brain & ventricles Unremarkable. Thalamus, cerebellum, cisterna magna, choroid plexus appear normal. Face and neck survey unremarkable. Profile, nasion, upper lip and nose appear normal Diaphragm and chest views unremarkable. Abdomen: Both kidneys noted and unremarkable. Stomach and bladder noted and satisfactory. Spine: Survey of the spine satisfactory with no anomalies identified nor imaged. Upper thoracic and lower spine appear normal. Both arms and legs noted. Amniotic Fluid: Adequate. Measurements: Average ultrasound age 19weeks 4days. Estimated due date by ultrasound age 0108/20/2023. Estimated weight 294g BPD = 19weeks 6days OFD = 19weeks 6days HC = 19weeks 1day AC = 19weeks 2days FL = 19weeks 6days Growth Percentile= 19th Heart Rate = 144bpm Cerebellum = 20weeks Humerus = 20weeks 1day HC/AC is 1.18 CI is 0.8 FL/BPD is 0.69 FL/AC is 0.23 IMPRESSION: 1. Viable fetus in the cephalic presentation with an anterior placenta grade 1. 2. The fluid is within normal limits. 3. There are several placental lakes and a possible posterior accessory lobe. 4. Anatomical scan appears normal. There has been good interval growth. Dictated by: Mohamud Pizano MD 03/30/2023 13:59 Mohamud Pizano MD in [facility] 03/30/2023 13:59
== END ==
PROVIDERS: PCP Internal Medicine Adolescent Medicine; Visit Provider Nurse Practitioner Obstetrics & Gynecology
DX: Z34.92 Encounter for supervision of normal pregnancy, unspecified, second trimester (principal); Z3A.20 20 weeks gestation of pregnancy
CPT/HCPCS: 76811

== ENCOUNTER 2023-05-18 16:41 | Outpatient (CLI) | payer MEDICAID, SELFPAY ==
--- OUTSIDE RECORDS SUMMARY | 2023-05-18 16:45 | XMS_ITS | Patient Health Record ---
Author Name Unknown Organization [facility] D YAJAIRA Address [address] [facility] [address] [place] [address] Care Team Providers [employer] Technician Name Role Phone Chin Rogers Primary Care Provider [phone] CHIN Rogers APRN Unavailable Unavailable Pedro Rainey Unavailable [phone] Eunice Carrero Unavailable [phone] ALLERGIES No Known Allergies RESULTS Component Value Reference Range Notes Culture, Throat Reviewed date:07/11/2022 02:57:53 PM Interpretation: Performing Lab: Notes/Report: CLIA: [id number] Loyd Mejia MD, Track Repair Worker [address] [place] [address] , [address], [place] [address] Test performed by Cardiac Guard, Post-A-Vox Specimen Source Throat Culture, Throat See Below Moderate growth of Normal Respiratory ellie. No further testing indicated. Upper respiratory bacteria, reincubate Upper respiratory bacteria, reincubate Rapid Strep Reviewed date:07/08/2022 09:20:02 PM Interpretation:Negative Performing Lab: Notes/Report: Negative Rapid screen REASON FOR REFERRAL No Information MEDICATIONS Medication SIG (Take, Route, Frequency, Duration) Notes Start Date End Date Status amoxicillin-clavulanate 875 mg-125 mg 1 tab(s) orally every 12 hours for 7 days 12/12/2022 Active Chlorhexidine Gluconate 0.12% 15 mL orally 2 times a day for 10 days 12/12/2022 Active
[2023-05-18 17:53] VITALS: BMI 25.1
[2023-05-18 17:57] VITALS: BP 110/66; PULSE 80; RESP 18; TEMP 36.8; O2SAT 100; BMI 25.1
[2023-05-18 18:18] LABS: Microscopic, Urine URINE MICROSCOPIC (MICROSCOPIC)
[2023-05-18 18:23] LABS: Appearance,Urine CLEAR (Clear); Bilirubin,Urine Negative (Negative); Blood, Urine Negative (Negative); Color,Urine YELLOW (Yellow); Glucose,Urine (UA) Negative (Negative); Ketones,Urine Negative (Negative); Leukocyte Esterase,Urine TRACE (Negative); Nitrate,Urine Negative (Negative); PH,Urine 6.5 (5.0-8.5); Protein,Urine Negative (Negative); Urobilinogen,Urine 0.2 EU/dl (0.2)
[2023-05-18 18:36] LABS: Amphetamine/Metha Screen,Urine Negative ng/ml (<1000)
[2023-05-18 18:37] LABS: Barbiturates Screen,Urine Negative ng/ml (<200); Benzodiazepines Screen,Urine Negative ng/ml (<200)
[2023-05-18 18:38] LABS: Bacteria,Urine Trace /lpf; Methadone Screen,Urine Negative ng/ml (<300)
[2023-05-18 18:39] LABS: Cannabinoid Screen,Urine Negative ng/ml (<50); Cocaine Screen,Urine Negative ng/ml (<300)
[2023-05-18 18:40] LABS: Opiate Screen,Urine Negative ng/ml (<300)
[2023-05-18 18:41] LABS: Phencyclidine Screen,Urine Negative ng/ml (<25)
== END 2023-05-18 17:45 | disposition home or self-care (01) ==
LOC: OBOUT 16:43 → OB 16:44
PROVIDERS: PCP Internal Medicine Adolescent Medicine; Visit Provider Nurse Practitioner Obstetrics & Gynecology
DX: O26.892 Other specified pregnancy related conditions, second trimester (principal); Z3A.27 27 weeks gestation of pregnancy; R42 Dizziness and giddiness
CPT/HCPCS: 80305; 81001; G0463

== ENCOUNTER 2023-05-27 21:14 | Emergency (ER) | payer MEDICAID, SELFPAY ==
[2023-05-27 21:14] VITALS: BP 122/75; PULSE 100; RESP 16; TEMP 36.7; O2SAT 99; BMI 26.4
--- NOTE | 2023-05-27 21:20 | ECG_ITS ---
APPROVED REPORT Exam: Resting ECG HR:111 bpm ECG Measurements Heart Rate 111 AXES ID 112 P 69 QRSd 82 QRS 91 QT 323 T 53 QTc 388 Conclusion SINUS TACHYCARDIA WITH SHORT ID INTERVAL BORDERLINE RIGHT AXIS DEVIATION [QRS AXIS > 90] ABNORMAL RHYTHM ECG UNCONFIRMED REPORT Electronically signed by : Pedro Rainey MD 05/28/2023 10:08:40
[2023-05-27 22:01] VITALS: PULSE 86
--- NOTE | 2023-05-27 22:06 | HMH.ITSTN ---
pt , RN stated to cx xray
--- NOTE | 2023-05-27 22:12 | PC.NURSE ---
at bedside for US. heart tones present at 140bpm
[2023-05-27 22:17] LABS: Basophils # 0.1 K/mm3 (0-0.2); Basophils % 0.3 % (0.1-2.0); Eosinophils # 0.1 K/mm3 (0.0-0.4); Eosinophils % 0.6 % (0.1-12.0); Hemoglobin 12.1 g/dL (12.2-16.2); Lymphocytes # 2.4 K/mm3 (0.7-4.5); Lymphocytes % 16.8 % (10-50); Mean Corpuscular HGB Conc 34.6 g/dL (31.8-35.4); Mean Corpuscular Hemoglobin 33.4 pg (27.0-31.2); Mean Corpuscular Volume 96.4 fl (81-99); Mean Platelet Volume 8.1 fl (7.4-10.4); Monocytes # 0.5 K/mm3 (0.1-1.0); Monocytes % 3.7 % (1.7-9.3); Neutrophils % 78.6 % (37.0-80.0); Platelet Count 337 K/mm3 (142-424); Red Blood Count 3.63 M/mm3 (4.20-5.40)
[2023-05-27 22:18] LABS: Chloride 107 mmol/L (98-107); Sodium 135 mmol/L (136-145)
[2023-05-27 22:19] LABS: Potassium 3.6 mmoL/L (3.5-5.1)
[2023-05-27 22:21] LABS: Alanine Aminotransferase 13 U/L (12-78); Albumin Level 3.6 g/dl (3.5-5.0); Albumin/Globulin Ratio 1.1 (1.1-1.8); Alkaline Phosphatase 110 U/L (38-126); Anion Gap 9.6 mEq/L (5-15); Aspartate Amino Transferase 21 U/L (14-36); Bilirubin,Total 0.3 mg/dl (0.2-1.3); Blood Urea Nitrogen 7 mg/dl (7-17); Carbon Dioxide 22 mmol/L (22.0-30.0); Creatinine Clearance Estimated 127 mL/min (50-200); Estimated Glomerular Filt Rate 99 ml/min (>60); GFR (African American) 120 ML/MIN (>60); Globulin 3.4 g/dL (1.3-3.2)
[2023-05-27 22:22] LABS: Calcium 8.6 mg/dl (8.4-10.2); Glucose 90 mg/dl (74-100)
[2023-05-27 22:37] LABS: Troponin I < 0.01 ng/ml (0.00-0.034)
--- NOTE | 2023-05-27 23:40 | HMH.EDGENADL ---
Discharge Plan Disposition Patient Disposition: Home, Self-Care Condition: Good Prescriptions Prescriptions: No Action fluticasone propionate [Flonase Allergy Relief] 50 mcg/actuation spray,suspension 2 spray intranasal DAILY Qty: 16 3RF Rx Instructions: administer into each nostril labetalol 100 mg tablet 50 mg PO DAILY Qty: 30 4RF methylprednisolone [Medrol (Acosta)] 4 mg tablets,dose pack 4 mg PO PER PKG DIR Qty: 21 0RF PNV 119-iron fum-folic acid 29 mg iron- 1 mg tablet 1 tab PO DAILY Qty: 30 6RF amoxicillin 400 mg/5 mL suspension for reconstitution 500 mg PO BID 7 Days Qty: 87.5 0RF ferrous sulfate 325 mg (65 mg iron) tablet,delayed release (DR/EC) 325 mg PO DAILY Qty: 30 6RF Referrals Follow up/Referrals: Pedro Rainey MD [Primary Care Provider] - See instructions Activity Restrictions/Add. Instructions Additional Instructions/Restrictions: Please follow-up with your primary care provider. Please return to the emergency department if you develop any new or worsening symptoms or become concerned for your health. Clinical Impressions Clinical Impression: Left-sided chest pain Instructions Patient Instructions: DI for Chest Pain Discharge ED Provider: Gadiel Cordero General Adult HPI <Conrad Rolon DO - Last Filed: 05/28/23 00:06> General Chief complaint: Chest Pain Stated complaint: Chest pain Time Seen by Provider: 05/27/23 21:58 Mode of Arrival: Ambulatory Source of Information: Patient Limitations: No Limitations Description of Symptoms (Recalled from ER Triage Doc. by RN): Patient ambulatory to0 ED with complaints of chest pain that started this morning. Patient described pain in left axillary of sharp shooting pain. No SOB at present. Patient 1 pk day smoker. History of Present Illness HPI narrative: 28-year-old female, currently 28 weeks gestation, history of anxiety and vertigo, presents today for evaluation concerning left-sided chest pain characterized as a tightness that has been intermittent over the past day. States that chest pain is worse with movement. Is not worse with deep breathing. Has not had any shortness of breath, nausea, vomiting, fevers, chills, diaphoresis, abdominal pain, dysuria, hematuria or any other associated symptoms at this time. She has not taken any Tylenol for her pain. States that she is currently on amoxicillin for a dental infection. She denies any other complaints at this time. Related Data Previous Rx's Medication Instructions Recorded fluticasone propionate 50 2 spray intranasal DAILY allergies 02/25/23 mcg/actuation nasal #16 grams spray,suspension (Flonase Allergy Relief) labetalol 100 mg tablet 50 mg PO DAILY #30 tabs 04/06/23 methylprednisolone 4 mg tablets in 4 mg PO PER PKG DIR #21 tabs 05/04/23 a dose pack (Medrol (Acosta)) amoxicillin 400 mg/5 mL oral 500 mg (6.25 mL) PO BID 7 days 05/25/23 suspension #87.5 mL ferrous sulfate 325 mg (65 mg 325 mg PO DAILY #30 tabs 05/25/23 iron) tablet,delayed release vitamins no.119-iron 1 tab PO DAILY #30 tabs 05/25/23 fumarate 29 mg-folic acid 1 mg tablet Allergies Allergy/AdvReac Type Severity Reaction Status Date / Time No Known Allergies Allergy Verified 05/25/23 14:04 [facility] <Conrad Rolon DO - Last Filed: 05/28/23 00:06> [facility] Disclaimer: The information contained in this section may have been updated after the patient was seen, as this information can be updated by other users. Medical History Infected dental caries Otitis media Surgical History No history of previous surgery Family History Other Cancer Coronary artery disease Diabetes Heart attack Hypertension Social History (Reviewed 05/25/23 @ 14:04 by Lizeth De Oliveira
--- NOTE | 2023-05-27 23:43 | PC.NURSE ---
Verbal order per Dr Rolon to get 2 hour Troponin instead of 3 hour.
--- NOTE | 2023-05-28 | XR_ITS ---
PROCEDURE INFORMATION: Exam: XR Chest Exam date and time: 05/28/2023 12:02 AM Age: 28 years old Clinical indication: Pain; Left-sided; Additional info: L cp TECHNIQUE: Imaging protocol: Radiologic exam of the chest. Views: 2 views. COMPARISON: No relevant prior studies available. FINDINGS: Lungs: Unremarkable. No consolidation. Pleural spaces: Unremarkable. No pleural effusion. No pneumothorax. Heart/Mediastinum: Unremarkable. No cardiomegaly. Bones/joints: Unremarkable. IMPRESSION: No acute findings.
[2023-05-28 00:26] LABS: Troponin I < 0.01 ng/ml (0.00-0.034)
[2023-05-28 00:55] VITALS: BP 105/65; PULSE 84; RESP 18; TEMP 36.6; O2SAT 99
== END 2023-05-28 01:05 | disposition home or self-care (01) ==
PROVIDERS: Emergency Medicine; Emergency Provider Emergency Medicine; PCP Internal Medicine Adolescent Medicine
DX: O26.893 Other specified pregnancy related conditions, third trimester (principal); R07.89 Other chest pain; R00.0 Tachycardia, unspecified; Z3A.28 28 weeks gestation of pregnancy; O99.333 Smoking (tobacco) complicating pregnancy, third trimester; F17.210 Nicotine dependence, cigarettes, uncomplicated; F41.9 Anxiety disorder, unspecified
CPT/HCPCS: 71046; 80053; 84484; 85025; 93005; 99284

== ENCOUNTER → 2023-06-04 14:55 | Outpatient (CLI) | payer MEDICAID, SELFPAY ==
--- NOTE | 2023-06-04 14:55 | US_ITS ---
PROCEDURE: US OB BIOPHYSICAL PROFILE CLINICAL INDICATION: sga COMPARISON: Anatomy scan March 30, 2023 FINDINGS: Transabdominal sonographic images of the uterus were obtained. From her established due date she is 29weeks 3days. The following parameters are obtained: Viable fetus in the breech presentation with an anterior placenta grade 2 Average ultrasound age is 28weeks 2days. Estimated due date by ultrasound is 08/25/2023. Estimated weight is 2lb 10oz. The cervix measures 3.5 cm. heart rate: 147bpm bpm. BPD: 27 weeks 1 day HC: 28 weeks 5 days AC: 28 weeks 3 days FL: 28 weeks 4 days HC/AC: 1.09 FL/BPD: 0.8 FL/AC: 0.22 10 percentile Amniotic fluid index: 11.32cm Qualitative AFV: 2 breathing movements: 2 Gross body movements: 2 Tone: 2 Biophysical profile score: 8 Doppler evaluation of the umbilical artery: SD ratio: 2.87 Resistive index: 0.65 No obvious anomalies evident.Kidneys, stomach, bladder, four-chamber view, three-vessel view, three-vessel cord appear normal. IMPRESSION: 1. Fetus in the breech presentation with an anterior placenta grade 2. 2. The fluid is within normal limits with an amniotic fluid index of 8.32 cm. 3. Biophysical profile 8/8 with good breathing movement seen and movement seen. 4. Fetus is currently 10th percentile with AC 1 week behind. 5. SD ratio is normal. Dictated by: Mohamud Pizano MD 06/04/2023 17:57 Mohamud Pizano MD in [facility] 06/04/2023 17:57
== END ==
PROVIDERS: PCP Internal Medicine Adolescent Medicine; Visit Provider Nurse Practitioner Obstetrics & Gynecology
DX: O36.5990 Maternal care for other known or suspected poor fetal growth, unspecified trimester, not applicable or unspecified (principal); Z3A.29 29 weeks gestation of pregnancy
CPT/HCPCS: 76816; 76819; 76820

== ENCOUNTER 2023-06-08 16:38 | Outpatient (CLI) | payer MEDICAID, SELFPAY ==
[2023-06-08 16:48] VITALS: BMI 25.5
[2023-06-08 17:10] VITALS: BMI 24.5
[2023-06-08 17:14] LABS: Microscopic, Urine URINE MICROSCOPIC (MICROSCOPIC)
[2023-06-08 17:47] LABS: Appearance,Urine CLOUDY (Clear); Bilirubin,Urine Negative (Negative); Blood, Urine Negative (Negative); Color,Urine YELLOW (Yellow); Glucose,Urine (UA) Negative (Negative); Ketones,Urine Negative (Negative); Leukocyte Esterase,Urine 1+ (Negative); Nitrate,Urine Negative (Negative); PH,Urine 6.5 (5.0-8.5); Protein,Urine TRACE (Negative); Specific Gravity, Urine 1.015 (1.005-1.030); Urobilinogen,Urine 0.2 EU/dl (0.2)
[2023-06-08 17:50] LABS: Fetal Membrane Rupture (Rapid) Negative (Negative)
[2023-06-08 18:07] LABS: Amorphous Sediment,Urine 3+ /lpf; Bacteria,Urine Trace /lpf; WBC,Urine Occasional #/hpf (0-3)
[2023-06-08 18:08] LABS: Amphetamine/Metha Screen,Urine Negative ng/ml (<1000)
[2023-06-08 18:09] LABS: Barbiturates Screen,Urine Negative ng/ml (<200); Benzodiazepines Screen,Urine Negative ng/ml (<200)
[2023-06-08 18:10] LABS: Cannabinoid Screen,Urine Negative ng/ml (<50)
[2023-06-08 18:11] LABS: Cocaine Screen,Urine Negative ng/ml (<300); Methadone Screen,Urine Negative ng/ml (<300)
[2023-06-08 18:12] LABS: Opiate Screen,Urine Negative ng/ml (<300)
[2023-06-08 18:13] LABS: Phencyclidine Screen,Urine Negative ng/ml (<25)
== END 2023-06-08 18:25 | disposition home or self-care (01) ==
LOC: OBOUT 16:40 → OB 16:41
PROVIDERS: PCP Internal Medicine Adolescent Medicine; Visit Provider Obstetrics & Gynecology
DX: O26.893 Other specified pregnancy related conditions, third trimester (principal); Z3A.30 30 weeks gestation of pregnancy
CPT/HCPCS: 59025; 80305; 81001; 84112; 87086; G0463

== ENCOUNTER 2023-06-16 13:06 | Outpatient (CLI) | payer MEDICAID, SELFPAY ==
[2023-06-16 13:18] VITALS: BMI 26.3
[2023-06-16 13:33] VITALS: BP 106/83; PULSE 92; RESP 17; O2SAT 100; BMI 26.2
[2023-06-16 13:36] LABS: Microscopic, Urine URINE MICROSCOPIC (MICROSCOPIC)
[2023-06-16 13:41] LABS: Appearance,Urine CLEAR (Clear); Bilirubin,Urine Negative (Negative); Blood, Urine Negative (Negative); Color,Urine YELLOW (Yellow); Glucose,Urine (UA) Negative (Negative); Ketones,Urine Negative (Negative); Leukocyte Esterase,Urine TRACE (Negative); Nitrate,Urine Negative (Negative); Protein,Urine Negative (Negative); Specific Gravity, Urine 1.015 (1.005-1.030); Urobilinogen,Urine 0.2 EU/dl (0.2)
[2023-06-16 13:42] VITALS: BP 108/70; PULSE 91
[2023-06-16 14:37] LABS: Bacteria,Urine 1+ /lpf
== END 2023-06-16 13:56 | disposition home or self-care (01) ==
LOC: OBOUT 13:07 → OB 13:08
PROVIDERS: PCP Internal Medicine Adolescent Medicine; Visit Provider Obstetrics & Gynecology
DX: O26.893 Other specified pregnancy related conditions, third trimester (principal); Z3A.31 31 weeks gestation of pregnancy
CPT/HCPCS: 59025; 81001; G0463

== ENCOUNTER → 2023-07-09 12:35 | Outpatient (CLI) | payer MEDICAID, SELFPAY ==
[2023-07-09 15:00] LABS: Hemoglobin A1C 5.1 % (4.0-6.0)
== END ==
PROVIDERS: PCP Internal Medicine Adolescent Medicine; Visit Provider Obstetrics & Gynecology
DX: Z34.93 Encounter for supervision of normal pregnancy, unspecified, third trimester (principal); Z3A.34 34 weeks gestation of pregnancy
CPT/HCPCS: 36415; 83036

== ENCOUNTER 2023-07-12 20:49 | Outpatient (CLI) | payer MEDICAID, SELFPAY ==
[2023-07-12 21:03] VITALS: BMI 27.0
[2023-07-12 21:10] LABS: Microscopic, Urine URINE MICROSCOPIC (MICROSCOPIC)
[2023-07-12 21:13] LABS: Appearance,Urine CLEAR (Clear); Bilirubin,Urine Negative (Negative); Blood, Urine Negative (Negative); Color,Urine YELLOW (Yellow); Glucose,Urine (UA) Negative (Negative); Ketones,Urine Negative (Negative); Leukocyte Esterase,Urine Negative (Negative); Nitrate,Urine Negative (Negative); Protein,Urine Negative (Negative); Specific Gravity, Urine 1.015 (1.005-1.030); Urobilinogen,Urine 0.2 EU/dl (0.2)
[2023-07-12 21:15] VITALS: BP 119/80; PULSE 106; RESP 18; TEMP 37.2; O2SAT 98
[2023-07-12 21:25] LABS: Barbiturates Screen,Urine Negative ng/ml (<200)
[2023-07-12 21:26] LABS: Benzodiazepines Screen,Urine Negative ng/ml (<200); Squamous Epithelial Cell,Urine Occasional #/hpf (0-5); WBC,Urine Occasional #/hpf (0-3)
[2023-07-12 21:27] LABS: Amphetamine/Metha Screen,Urine Negative ng/ml (<1000); Cannabinoid Screen,Urine Negative ng/ml (<50)
[2023-07-12 21:28] LABS: Cocaine Screen,Urine Negative ng/ml (<300)
[2023-07-12 21:29] LABS: Methadone Screen,Urine Negative ng/ml (<300); Opiate Screen,Urine Negative ng/ml (<300)
[2023-07-12 21:30] LABS: Phencyclidine Screen,Urine Negative ng/ml (<25)
[2023-07-12 21:35] VITALS: BP 125/73; PULSE 94
[2023-07-12 21:40] VITALS: BP 119/80; PULSE 106; RESP 18; TEMP 37.2; O2SAT 98; BMI 27.0
[2023-07-12 22:05] VITALS: BP 118/70; PULSE 90
== END 2023-07-12 22:10 | disposition home or self-care (01) ==
LOC: OBOUT 20:51 → OB 20:51
PROVIDERS: PCP Internal Medicine Adolescent Medicine; Visit Provider Obstetrics & Gynecology
DX: O36.8130 Decreased fetal movements, third trimester, not applicable or unspecified (principal); Z3A.34 34 weeks gestation of pregnancy; W19.XXXA Unspecified fall, initial encounter; R60.0 Localized edema
CPT/HCPCS: 59025; 80305; 81001; G0463

== ENCOUNTER → 2023-07-15 13:55 | Outpatient (CLI) | payer MEDICAID, SELFPAY ==
--- NOTE | 2023-07-15 13:56 | US_ITS ---
PROCEDURE: US OB BIOPHYSICAL PROFILE CLINICAL INDICATION: sga/ with TONNY COMPARISON: Ultrasound 06/04/2023 FINDINGS: Transabdominal sonographic images of the uterus were obtained. From her established due date she is 35weeks 2days. The following parameters are obtained: Viable fetus in the cephalic presentation with an anterior placenta grade 2 Average ultrasound age is 33weeks 6days. Estimated due date by ultrasound is 08/27/2023. Estimated weight is 5lb 4oz, 2386 grams. The cervix measures 3.3 cm. heart rate: 138bpm bpm. BPD: 32 weeks 4 days HC: 33 weeks 5 days AC: 34 weeks 5 days FL: 34 weeks 3 days HC/AC: 0.99 FL/BPD: 0.83 FL/AC: 0.22 21st percentile Amniotic fluid index: 9.71cm, MVP 4.0 cm. Qualitative AFV: 2 breathing movements: 2 Gross body movements: 2 Tone: 2 Biophysical profile score: 8 Doppler evaluation of the umbilical artery: SD ratio: 2.52-3.7 Resistive index: 0.73 No obvious anomalies evident.Kidneys, profile, bladder, four-chamber view, three-vessel cord appear normal. IMPRESSION: 1. Viable fetus in the cephalic presentation with an anterior placenta grade 2. 2. The fluid is within normal limits with an amniotic fluid index of 9.7 cm, MVP 4.0 cm. 3. Biophysical profile is 8/8 with good breathing movement seen. 4. SD ratio is normal at 2.52-3.7. 5. There has been good growth with the infant currently 21st percentile. Dictated by: Mohamud Pizano MD 07/15/2023 18:00 Mohamud Pizano MD in [facility] 07/15/2023 18:00
== END ==
PROVIDERS: PCP Internal Medicine Adolescent Medicine; Visit Provider Obstetrics & Gynecology
DX: O28.8 Other abnormal findings on antenatal screening of mother (principal); O36.5930 Maternal care for other known or suspected poor fetal growth, third trimester, not applicable or unspecified; Z3A.35 35 weeks gestation of pregnancy
CPT/HCPCS: 76816; 76819; 76820

== ENCOUNTER 2023-07-18 17:36 | Emergency (ER) | payer MEDICAID, SELFPAY ==
[2023-07-18 17:50] VITALS: BP 126/79; PULSE 94; RESP 18; TEMP 37.1; O2SAT 98; BMI 27.6
[2023-07-18 18:24] VITALS: BP 126/79; PULSE 94; RESP 18; TEMP 37.1; O2SAT 98
--- NOTE | 2023-07-18 18:30 | EXP.UTC ---
Discharge Plan Disposition Patient Disposition: Home, Self-Care Condition: Good Prescriptions Prescriptions: New amoxicillin 400 mg/5 mL suspension for reconstitution 500 mg PO TID 10 Days Qty: 187.5 0RF No Action PNV 119-iron fum-folic acid 29 mg iron- 1 mg tablet 1 tab PO DAILY Qty: 30 6RF ferrous sulfate 325 mg (65 mg iron) tablet,delayed release (DR/EC) 325 mg PO DAILY Qty: 30 6RF labetalol 100 mg tablet 50 mg PO DAILY Referrals Follow up/Referrals: Pedro Rainey MD [Primary Care Provider] - See instructions Clinical Impressions Clinical Impression: Dental abscess Instructions Patient Instructions: DI for Tooth Decay, DI for Dental Pain, Tooth Abscess Discharge ED Provider: Sara Ca [facility] General Stated complaint: tooth pain Mode of Arrival: Ambulatory Source of Information: Patient Limitations: No Limitations Time Seen by Provider: 07/18/23 18:18 Description of Symptoms (Recalled from Triage Doc. by RN): PATIENT C/O INFECTION TO RIGHT BOTTOM TOOTH X 3 DAYS HEENT Symptoms (Recalled from RN notes): Yes Resp Symptoms (Recalled from RN notes): No Skin Symptoms (Recalled from RN notes): No MS Symptoms (Recalled from RN notes): No Functional Status (Recalled from RN notes): WNL History of Present Illness Provider Complaint: Pt relates that she has been for the last 3 years and this has affected her teeth. She reports that she has a tooth on the bottom right that is decayed and infected. She states that the tooth has hurt for the last 3 days. Related Data Home Medications Medication Instructions Recorded Confirmed labetalol 100 mg tablet 50 mg PO DAILY 07/09/23 07/18/23 Previous Rx's Medication Instructions Recorded ferrous sulfate 325 mg (65 mg 325 mg PO DAILY #30 tabs 05/25/23 iron) tablet,delayed release vitamins no.119-iron 1 tab PO DAILY #30 tabs 05/25/23 fumarate 29 mg-folic acid 1 mg tablet amoxicillin 400 mg/5 mL oral 500 mg (6.25 mL) PO TID 10 days 07/18/23 suspension #187.5 mL Allergies Allergy/AdvReac Type Severity Reaction Status Date / Time No Known Allergies Allergy Verified 07/09/23 11:13 Worker's Comp Is this a Worker's Comp case?: No PFSH PFSH Disclaimer: The information contained in this section may have been updated after the patient was seen, as this information can be updated by other users. Medical History (Updated 07/18/23 @ 18:32 by Sara Ca APRN) 34 weeks gestation of Eustachian tube dysfunction Infected dental caries Otitis media Tinnitus Tobacco use affecting , antepartum Surgical History No history of previous surgery Family History Other Cancer Coronary artery disease Diabetes Heart attack Hypertension Social History Smoking Status: Current every day smoker tobacco type: cigarettes packs per day: 1 alcohol intake: never substance use type: denies use and marijuana current occupational status: unemployed Travel in the last 8 weeks: None household members: children housing: apartment marital status: single number of children: 2 caffeine: Yes ROS Obtained: Yes All systems reviewed & no additional complaints except as documented Constitutional Constitutional: Reports system reviewed and no additional complaints, except as documented Eyes Eyes: Reports system reviewed and no additional complaints, except as documented ENT Ears, Nose, Mouth, and Throat: Reports system reviewed and no additional complaints, except as documented, Reports dental pain and Reports facial pain Cardiovascular Cardiovascular: Reports system reviewed and no additional complaints, except as documented Respiratory Respiratory: Reports system reviewed and no additional complaints, excep
== END 2023-07-18 18:36 | disposition home or self-care (01) ==
PROVIDERS: Emergency Provider Nurse Practitioner Family; PCP Internal Medicine Adolescent Medicine
DX: K04.7 Periapical abscess without sinus (principal); F17.210 Nicotine dependence, cigarettes, uncomplicated
CPT/HCPCS: 99212; 99214; G0463

== ENCOUNTER 2023-07-22 13:34 | Outpatient (CLI) | payer MEDICAID, SELFPAY ==
[2023-07-22 13:44] VITALS: BMI 26.2
[2023-07-22 13:55] LABS: Microscopic, Urine URINE MICROSCOPIC (MICROSCOPIC)
[2023-07-22 14:08] LABS: Appearance,Urine CLEAR (Clear); Bilirubin,Urine Negative (Negative); Blood, Urine Negative (Negative); Color,Urine YELLOW (Yellow); Glucose,Urine (UA) Negative (Negative); Ketones,Urine Negative (Negative); Leukocyte Esterase,Urine Negative (Negative); Nitrate,Urine Negative (Negative); Protein,Urine Negative (Negative); Specific Gravity, Urine 1.015 (1.005-1.030); Urobilinogen,Urine 0.2 EU/dl (0.2)
[2023-07-22 14:23] LABS: Bacteria,Urine Trace /lpf; Squamous Epithelial Cell,Urine Occasional #/hpf (0-5)
[2023-07-22 14:28] LABS: Barbiturates Screen,Urine Negative ng/ml (<200)
[2023-07-22 14:29] LABS: Benzodiazepines Screen,Urine Negative ng/ml (<200)
[2023-07-22 14:30] LABS: Amphetamine/Metha Screen,Urine Negative ng/ml (<1000); Methadone Screen,Urine Negative ng/ml (<300)
[2023-07-22 14:31] LABS: Cannabinoid Screen,Urine Negative ng/ml (<50); Cocaine Screen,Urine Negative ng/ml (<300)
[2023-07-22 14:33] LABS: Opiate Screen,Urine Negative ng/ml (<300); Phencyclidine Screen,Urine Negative ng/ml (<25)
[2023-07-22 16:06] VITALS: BP 118/68; PULSE 95; RESP 19; TEMP 36.4; O2SAT 99; BMI 26.2
== END 2023-07-22 15:18 | disposition home or self-care (01) ==
LOC: OBOUT 13:37 → OB 13:38
PROVIDERS: PCP Internal Medicine Adolescent Medicine; Visit Provider Nurse Practitioner Obstetrics & Gynecology
DX: O47.03 False labor before 37 completed weeks of gestation, third trimester (principal); Z3A.36 36 weeks gestation of pregnancy; Z3A.26 26 weeks gestation of pregnancy
CPT/HCPCS: 59025; 80305; 81001; G0463

== ENCOUNTER → 2023-07-23 23:09 | Outpatient (CLI) | payer MEDICAID, SELFPAY | PROVIDERS: PCP Internal Medicine Adolescent Medicine; Visit Provider Obstetrics & Gynecology | DX: Z34.93 Encounter for supervision of normal pregnancy, unspecified, third trimester (principal); Z3A.37 37 weeks gestation of pregnancy | CPT/HCPCS: 86403 ==

== ENCOUNTER 2023-08-06 11:50 | Outpatient (CLI) | payer MEDICAID, SELFPAY ==
[2023-08-06 12:03] VITALS: BMI 28.3
[2023-08-06 12:30] VITALS: BP 143/88
[2023-08-06 12:45] VITALS: BP 137/95
[2023-08-06 12:57] LABS: Basophils % 0.3 % (0.1-2.0); Eosinophils # 0.1 K/mm3 (0.0-0.4); Eosinophils % 0.6 % (0.1-12.0); Hematocrit 34.6 % (37.0-47.0); Hemoglobin 11.6 g/dL (12.2-16.2); Lymphocytes # 1.9 K/mm3 (0.7-4.5); Lymphocytes % 17.7 % (10-50); Mean Corpuscular HGB Conc 33.4 g/dL (31.8-35.4); Mean Corpuscular Hemoglobin 31.1 pg (27.0-31.2); Mean Corpuscular Volume 93.2 fl (81-99); Mean Platelet Volume 8.7 fl (7.4-10.4); Monocytes # 0.5 K/mm3 (0.1-1.0); Monocytes % 4.4 % (1.7-9.3); Neutrophils # 8.2 K/mm3 (1.8-7.8); Platelet Count 251 K/mm3 (142-424); Red Blood Count 3.72 M/mm3 (4.20-5.40); Red Cell Distribution Width 14.9 % (11.5-17.5); White Blood Count 10.6 K/mm3 (4.8-10.8)
[2023-08-06 13:00] VITALS: BP 136/102
[2023-08-06 13:03] LABS: Alanine Aminotransferase 17 U/L (12-78); Albumin Level 2.9 g/dl (3.5-5.0); Alkaline Phosphatase 142 U/L (38-126); Anion Gap 6.7 mEq/L (5-15); Aspartate Amino Transferase 23 U/L (14-36); Bilirubin,Total 0.3 mg/dl (0.2-1.3); Blood Urea Nitrogen 7 mg/dl (7-17); Calcium 8.1 mg/dl (8.4-10.2); Carbon Dioxide 17 mmol/L (22.0-30.0); Chloride 112 mmol/L (98-107); Creatinine Clearance Estimated 140 mL/min (50-200); Estimated Glomerular Filt Rate 99 ml/min (>60); GFR (African American) 120 ML/MIN (>60); Glucose 103 mg/dl (74-100); Potassium 3.7 mmoL/L (3.5-5.1); Sodium 132 mmol/L (136-145); Total Protein,Serum 5.9 g/dl (6.3-8.2); Uric Acid 4.3 mg/dl (2.5-6.2)
[2023-08-06 13:30] VITALS: BP 133/84
[2023-08-06 14:21] VITALS: BP 141/97; PULSE 102; RESP 16; TEMP 36.8; O2SAT 100; BMI 28.3
[2023-08-06 14:27] LABS: Creatinine,Urine Random 66 mg/dL (Not Estab.)
[2023-08-06 14:29] LABS: Microalbumin/Creatinine Ratio 21.9
== END 2023-08-06 13:39 | disposition home or self-care (01) ==
LOC: OBOUT 11:51 → OB 11:51
PROVIDERS: PCP Internal Medicine Adolescent Medicine; Visit Provider Nurse Practitioner Obstetrics & Gynecology
DX: O13.3 Gestational [pregnancy-induced] hypertension without significant proteinuria, third trimester (principal); Z3A.38 38 weeks gestation of pregnancy
CPT/HCPCS: 36415; 59025; 80053; 82043; 82570; 84550; 85025; G0463

== ENCOUNTER 2023-08-12 05:32 | Inpatient (IN) | payer MEDICAID, SELFPAY ==
--- OUTSIDE RECORDS SUMMARY | 2023-08-12 05:34 | XMS_ITS | Patient Health Record ---
Author Name [place] [facility] [place] [address] [place] [address] Care Team Providers Care Food Operations Manager Name Role Phone Chin Rogers Primary Care Provider CHIN Rogers APRN Unavailable Unavailable Pedro Rainey Unavailable [phone] ALLERGIES No Known Allergies REASON FOR REFERRAL No Information MEDICATIONS Medication SIG (Take, Route, Frequency, Duration) Notes Start Date End Date Status amoxicillin-clavulanate 875 mg-125 mg 1 tab(s) orally every 12 hours for 7 days 12/12/2022 Active Chlorhexidine Gluconate 0.12% 15 mL orally 2 times a day for 10 days 12/12/2022 Active SOCIAL HISTORY Tobacco Use: Social History Observation Description Date Details (start date - stop date) Current Smoker NA - NA Sex Assigned At : Social History Observation Description Sex Assigned At Unknown Smoking: Question Answer Notes Are you a: current smoker How often do you smoke cigarettes? every day How many cigarettes a day do you smoke? 11-20 How soon after you wake up d o you smoke your first cigarette? 6-30 min Are you interested in quitting? Ready to quit Additional Findings: Tobacco User Modera te cigarette smoker (10-19 cigs/day) PROBLEMS Problem Type ICD Code Onset Dates Problem Status W/U Status Risk SNOMED Code Notes Problem Essential hypertension (I10) Active confirmed 51996827 Problem Left chronic serous otitis media (H65.22) Active confirmed 543814088 VITAL SIGNS Heart Rate 96 /min 12/17/2022 Temperature 97.7 degrees Fahrenheit 12/17/2022 Blood pressure diastolic 74 mm Hg 12/17/2022 Height 5 ft 4 in in 12/17/2022 Blood pressure systolic 132 mm Hg 12/17/2022 Weight 143 lbs 12/17/2022 BMI 24.54 kg/m2 12/17/2022 Encounters Encounter Location Date Provider Diagnosis [facility] [address] [facility] [address] [place] [address] 10/21/2022 Chin Rogers Viral URI J06.9 and Non-recurrent acute serous otitis media of both ears H65.03 [facility] [address] [facility] [address] [place] [address] 12/12/2022 Pedro Besson Dental abscess K04.7 and Left chronic serous otitis media H65.22 [facility] [address] [facility] [address] [place] [address] 12/17/2022 Pedro Besson Lymphadenitis I88.9 [facility] [address] [address] 12/12/2022 Chin Rogers ASSESSMENTS Encounter Date Diagnosis Assessment Notes Treatment Notes Treatment Clinical Notes 10/21/2022 Viral URI (ICD-10 - J06.9) Reassurance. Discussed the etiology & expected course of a viral URI and discussed the rationale for not prescribing antibiotics. Continue supportive care with PRN antipyretics, OTC cough/cold meds, nasal saline rinses, cough drops, and humidifier. Encourage PO hydration. Discussed the signs and symptoms of worsening condition and need for reassessment in clinic or ED. 10/21/2022 Non-recurrent acute serous otitis media of both ears (ICD-10 - H65.03) 12/12/2022 Dental abscess (ICD-10 - K04.7) 12/12/2022 Left chronic serous otitis media (ICD-10 - H65.22) 12/17/2022 Lymphadenitis (ICD-10 - I88.9) Discussed pathogeneis of lymphadenitis and normal function of lymph nodes. Recommended warm compresses and PRN NSAIDs if no contraindication. Discussed when to RTC if enlargement, fever, night sweats or other symptoms. Recommended avoiding rubbing the node. PLAN OF TREATMENT No Information Insurance Providers Payer Name Payer Address Payer Phone Subscriber Number Group Number Insured Name Patient Relationship to Insured Coverage Start Date Coverage End Date [employer] [address] [address] [place] [address] [id number] Enedelia Rubi Self - patient is the insured MEDICAL (GENERAL) HISTORY Medical History History ICD Code Anxiety/Depression Surgical History Surgery Date(Month/Year) oral surgery 2010 Hospitalization History Reason Date(Month/Year) child- 2020 kidney infection 2013
[2023-08-12 05:41] VITALS: BMI 27.9
[2023-08-12 06:05] VITALS: BP 139/86; PULSE 107; RESP 18; TEMP 37.1; O2SAT 99; BMI 27.9
[2023-08-12] MEDS: DEXTROSE 5%-LACTATED RINGERS 1,000 ML 125 ML IV (06:18)
[2023-08-12 06:19] LABS: Basophils % 0.4 % (0.1-2.0); Eosinophils # 0.1 K/mm3 (0.0-0.4); Eosinophils % 0.6 % (0.1-12.0); Hematocrit 33.9 % (37.0-47.0); Hemoglobin 11.2 g/dL (12.2-16.2); Lymphocytes # 2.2 K/mm3 (0.7-4.5); Lymphocytes % 21.4 % (10-50); Mean Corpuscular Hemoglobin 30.2 pg (27.0-31.2); Mean Corpuscular Volume 91.6 fl (81-99); Mean Platelet Volume 8.6 fl (7.4-10.4); Monocytes # 0.4 K/mm3 (0.1-1.0); Monocytes % 3.7 % (1.7-9.3); Neutrophils # 7.5 K/mm3 (1.8-7.8); Neutrophils % 73.9 % (37.0-80.0); Platelet Count 327 K/mm3 (142-424); Red Cell Distribution Width 14.8 % (11.5-17.5); White Blood Count 10.2 K/mm3 (4.8-10.8)
[2023-08-12] MEDS: LACTATED RINGERS 1000ML 1,000 ML 500 ML IV ×2 (06:19→12:26)
[2023-08-12] MEDS: OXYTOCIN/RINGERS LACTATE 30 UNITS/500 ML BAG IV (06:20)
[2023-08-12 06:24] LABS: Microscopic, Urine URINE MICROSCOPIC (MICROSCOPIC)
[2023-08-12 07:00] LABS: Amphetamine/Metha Screen,Urine Negative ng/ml (<1000); Barbiturates Screen,Urine Negative ng/ml (<200); Benzodiazepines Screen,Urine Negative ng/ml (<200); Cannabinoid Screen,Urine Negative ng/ml (<50); Cocaine Screen,Urine Negative ng/ml (<300); Methadone Screen,Urine Negative ng/ml (<300); Opiate Screen,Urine Negative ng/ml (<300); Phencyclidine Screen,Urine Negative ng/ml (<25)
[2023-08-12 07:15] LABS: Appearance,Urine CLEAR (Clear); Bilirubin,Urine Negative (Negative); Blood, Urine Negative (Negative); Color,Urine YELLOW (Yellow); Glucose,Urine (UA) Negative (Negative); Ketones,Urine Negative (Negative); Leukocyte Esterase,Urine TRACE (Negative); Nitrate,Urine Negative (Negative); Protein,Urine Negative (Negative); Specific Gravity, Urine 1.015 (1.005-1.030); Urobilinogen,Urine 0.2 EU/dl (0.2)
[2023-08-12 07:43] LABS: Bacteria,Urine Trace /lpf; WBC,Urine Occasional #/hpf (0-3)
--- NOTE | 2023-08-12 08:19 | P.HP_ITS ---
History of Present Illness *Admission Date: 08/12/23 *Reason for visit:: Term , mild PIH *History of present illness: She is a 28-year-old 4 para 2 aborta 1 who is 39 and 2 weeks gestational age. She was seen in my office over the last week her blood pressure was elevated in the 140s over 90s. As result of that we have elected to induce her labor at term. A positive blood Rubella nonimmune GBS negative PFSH PFSH Disclaimer: The information contained in this section may have been updated after the patient was seen, as this information can be updated by other users. Medical History Elevated blood pressure affecting , antepartum Eustachian tube dysfunction Infected dental caries Otitis media Tinnitus Tobacco use affecting , antepartum Surgical History No history of previous surgery Family History Diabetes Coronary artery disease Heart attack Cancer Hypertension Social History Smoking Status: Current every day smoker tobacco type: cigarettes packs per day: 1 alcohol intake: never substance use type: denies use and marijuana current occupational status: unemployed Travel in the last 8 weeks: None household members: children housing: apartment marital status: single number of children: 2 caffeine: Yes do you feel safe at home: Yes victim of physical abuse: No victim of emotional abuse: No victim of sexual abuse: No Review of Systems Review of Systems Review of systems:: pertinent systems reviewed and negative unless documented below Meds Home Medications and Allergies Home Medications Medication Instructions Recorded Confirmed Type ferrous sulfate 325 mg (65 mg 325 mg PO DAILY #30 tabs 05/25/23 08/12/23 Rx iron) tablet,delayed release vitamins no.119-iron 1 tab PO DAILY #30 tabs 05/25/23 08/12/23 Rx fumarate 29 mg-folic acid 1 mg tablet labetalol 100 mg tablet 50 mg PO DAILY 07/09/23 08/12/23 History New Prescriptions to Start Prescriptions: Allergies Allergy/AdvReac Type Severity Reaction Status Date / Time No Known Allergies Allergy Verified 08/12/23 06:35 Exam Data for Last 24 hours Vital signs and Labs for Last 24 Hours: Temp Pulse Resp BP Pulse Ox O2 Del Method 98.8 F 107 H 18 139/86 99 Room Air 08/12/23 06:05 08/12/23 06:05 08/12/23 06:05 08/12/23 06:05 08/12/23 06:05 08/12/23 06:05 Laboratory Results - last 24 hr 08/12/23 06:00: WBC 10.2, RBC 3.70 L, Hgb 11.2 L, Hct 33.9 L, MCV 91.6, MCH 30.2, MCHC 33.0, RDW 14.8, Plt Count 327, MPV 8.6, Neut % (Auto) 73.9, Lymph % (Auto) 21.4, Fajardo % (Auto) 3.7, Eos % (Auto) 0.6, Baso % (Auto) 0.4, Neut # (Auto) 7.5, Lymph # (Auto) 2.2, Fajardo # (Auto) 0.4, Eos # (Auto) 0.1, Baso # (Auto) 0.0, Blood Type A Positive 08/12/23 06:10: Urine Color Yellow, Urine Appearance Clear, Urine pH 7.0, Ur Specific [place] 1.015, Urine Protein Negative, Urine Glucose (UA) Negative, Urine Ketones Negative, Urine Blood Negative, Urine Nitrate Negative, Urine Bilirubin Negative, Urine Urobilinogen 0.2, Ur Leukocyte Esterase Trace, Urine RBC None, Urine WBC Occasional, Ur Squamous Epith Cells 3-5, Urine Bacteria Trace, Urine Opiates Screen Negative, Urine Methadone Screen Negative, Ur Barbituates Screen Negative, Ur Phencyclidine Scrn Negative, Ur Amphetamines Screen Negative, U Benzodiazepines Scrn Negative, Urine Cocaine Screen Negative, U Marijuana (THC) Screen Negative I & O for Last 24 hours: Intake & Output 08/09/23 08/10/23 08/11/23 08/12/23 11:59 11:59 11:59 11:59 Weight 163 lb Constitutional Constitutional: no acute distress *Routine HEENT Exam Head: Present normocephalic Eye: Present EOMI and PERRL ENT: Present mucous membranes moist *Routine Neck Exam Neck: Present supple; Absent lymphadenopathy *Routine Respiratory Exam Respiratory: Present CTA bilaterally *Routine Cardiovascular Exam Cardiovascular: Present RRR *Routine Abdominal Exam Abdominal: Present soft and normoactive bowel sounds; Absent tenderness *Routine Rectal Exam Rectal:: deferred *Routine Genitalia Exam Genitalia:: deferred *Routine Extremities Exam Extremities: Absent cyanosis, clubbing or edema *Routine Skin Exam Skin: Present warm; Absent rash *Routine Neurological Exam Neurological: Present alert and oriented X3 Assessment and Plan *Assessment and plan (1) Elevated blood pressure affecting , antepartum: Status: Acute Category: Medical Code(s): O16.9 - Unspecified maternal hypertension, unspecified trimester (2) Tobacco use affecting , antepartum: Status: Acute Category: Medical Code(s): O99.330 - Smoking (tobacco) complicating , unspecified trimester (3) Normal delivery: Status: Resolved Category: Medical Code(s): O80 - Encounter for full-term uncomplicated delivery Plan She is 4 cm dilated this morning. We have rupture membranes with clear fluid. We will expect a vaginal delivery. Nonstress test is reactive.
--- NOTE | 2023-08-12 08:21 | EXP.LABOR.NO ---
Labor Note Subjective: Date: 08/12/23 Time: 08:21 regular contraction Objective: NST:: Reactive Contractions:: every 2-3 minutes Cervical Dilation:: 4 Effacement:: 75% Station: -1 Membranes: artificially ruptured Comment:: I ruptured her membranes and there was clear fluid. Fetus: Monitoring?: Yes monitoring type:: External Assessment: Labor progressing?: Yes Cephalopelvic disproportion?: No Plan: Anesthesia for epidural?: Yes Continue to labor down?: Yes Plan for ?: No Continue to monitor?: Yes Start pushing?: No Comment:: I ruptured her membranes and there was clear fluid. We expect a vaginal delivery.
[2023-08-12] MEDS: OXYTOCIN/RINGERS LACTATE 30 UNITS/500 ML BAG 999 UNITS IV (10:03)
--- NOTE | 2023-08-12 10:14 | EXP.DN ---
Delivery Note Delivery Date:: 08/12/23 Delivery Time:: 10:00 Anesthesia Type: None Was labor medically induced?: Yes Induction method: per pitocin protocol Gestational age (weeks): 39 Infant delivered prior to 39 weeks?: No Justification for early elective delivery:: Benign Hypertension Gender: Female at 1 minute: 8 at 5 minutes: 9 Delivery Procedure:: Her blood pressure was found to be elevated and as result of that she was brought in for induction of labor at term. She is 39 weeks and 3 days gestational age. She was started on IV oxytocin had her membranes ruptured and progressed rapidly to full dilation. She delivered spontaneously a liveborn female child at 10:00 in the morning of August 12, 2023. On deliver the head the anterior shoulder then easily delivered followed by the rest the 's body atraumatically. The baby was vigorous and cried spontaneously. The oropharynx and nasopharynx were bulb suction. We allowed the cord to continue to pulsate for approximately 1 minute. The cord was then doubly clamped and cut and the infant was placed on the mother's abdomen for further care. The nurses assigned Apgars of 8 at 1 minute and 9 at 5 minutes. We then obtained cord blood. She received IV oxytocin and using gentle traction on the cord and countertraction the fundus I was able to easily deliver the placenta 3 minutes after delivery. He had a normal three-vessel cord. There were no perineal or vaginal lacerations. She has a positive blood, she is well immune and was group B streptococcus negative. She plans to bottlefeed. Estimated blood loss was approximately 250 cc. Placental Delivery Description: Spontaneous
[2023-08-12] MEDS: OXYTOCIN/RINGERS LACTATE 30 UNITS/500 ML BAG 40 UNITS IV (10:17)
[2023-08-12] MEDS: IBUPROFEN 400 MG TABLET 800 MG PO (11:39)
[2023-08-12] MEDS: ACETAMINOPHEN 325MG TAB 650 MG PO (11:39)
[2023-08-12 16:30] VITALS: BP 149/80; PULSE 71; RESP 18; TEMP 36.9; O2SAT 99
[2023-08-12] MEDS: PRENATAL MULTIVITAMIN W/IRON 1 EACH PO (16:33)
[2023-08-12] MEDS: LABETALOL 100MG TABLET 200 MG PO (16:33)
[2023-08-12 19:54] VITALS: BP 139/80; PULSE 76; RESP 18; TEMP 37.2; O2SAT 100
[2023-08-12 22:06] VITALS: BP 145/84; PULSE 62
[2023-08-13 00:06] VITALS: BP 133/78; PULSE 80; RESP 18; TEMP 36.9
[2023-08-13 04:27] VITALS: BP 133/67; PULSE 80; RESP 18; TEMP 36.9
[2023-08-13 06:40] LABS: Hematocrit 29.7 % (37.0-47.0); Hemoglobin 9.9 g/dL (12.2-16.2)
[2023-08-13] MEDS: LABETALOL 100MG TABLET 200 MG PO ×2 (08:14→20:02)
[2023-08-13 08:15] VITALS: BP 139/82; PULSE 72; RESP 16; TEMP 37.1; O2SAT 97
--- NOTE | 2023-08-13 08:22 | EXP.ACUTE.PN ---
Subjective *Date: 08/13/23 *Time: 08:22 Interval history: She continues to do well this morning. She is eating and drinking and ambulating. She is breast-feeding. Her lochia is normal. Hemoglobin is 9.9 this morning. Blood pressure is good and we have started her on labetalol 200 mg twice daily. Medical Exam Vital signs and Labs for Last 24 Hours: Vital Signs Temp Pulse Resp BP Pulse Ox O2 Del Method 08/13/23 04:27 98.5 F 80 18 133/67 08/13/23 00:06 98.5 F 80 18 133/78 08/12/23 22:06 62 145/84 H 08/12/23 19:54 98.9 F 76 18 139/80 100 Room Air 08/12/23 16:30 98.4 F 71 18 149/80 H 99 Room Air Laboratory Results - last 24 hr 08/12/23 06:00: Antibody Screen Negative 08/13/23 06:30: Hgb 9.9 L, Hct 29.7 L I & O for Labs for Last 24 Hours: Intake & Output 08/10/23 08/11/23 08/12/23 08/13/23 11:59 11:59 11:59 11:59 Weight 163 lb Head: Present atraumatic Neck: Present normal inspection Respiratory: Present normal respiratory effort; Absent accessory muscle use Assessment and Plan *Assessment and plan (1) Elevated blood pressure affecting , antepartum: Status: Acute Category: Medical Code(s): O16.9 - Unspecified maternal hypertension, unspecified trimester (2) Dental abscess: Status: Acute Category: Medical Code(s): K04.7 - Periapical abscess without sinus (3) Tobacco use affecting , antepartum: Status: Acute Category: Medical Code(s): O99.330 - Smoking (tobacco) complicating , unspecified trimester (4) Normal delivery: Status: Resolved Category: Medical Code(s): O80 - Encounter for full-term uncomplicated delivery Plan She is doing well this morning. Her blood pressures have stabilized. We will continue her on labetalol 200 mg twice daily and she will go home with this prescription. We will plan to discharge her home tomorrow. She continues to breast-feed.
[2023-08-13 12:04] VITALS: BP 129/76; PULSE 83; RESP 16; O2SAT 98
[2023-08-13 16:13] VITALS: BP 143/80; PULSE 65; RESP 16; TEMP 36.8; O2SAT 98
[2023-08-13 20:00] VITALS: BP 171/81; PULSE 76; RESP 17; TEMP 36.7; O2SAT 99
[2023-08-14 04:35] VITALS: BP 140/80; PULSE 86; RESP 17; TEMP 37; O2SAT 99
[2023-08-14 07:39] VITALS: BP 135/81; PULSE 87; RESP 18; TEMP 36.4; O2SAT 98
--- NOTE | 2023-08-14 07:53 | P.DS_ITS ---
General Admission date:: 08/12/23 Discharge date: 08/14/23 HPI HPI HPI: PPD # 2 s/p Sitting comfortably in bed. Pain controlled. Light lochia. Breast feeding. Voiding without difficulty and passing flatus. Tolerating regular diet. Denies fever/chills, chest pain and shortness of breath. No headaches, vision changes, lighteadedness/dizziness. Ambulating well ad brian. Hospital Course Hospital Course Hospital Course: Ms Enedelia Rubi is a 28 yo at 39w2d admitted to [facility] Labor and delivery for induction of labor secondary to new diagnosis of gestational hypertension. She was taking Labetalol 50 mg PO daily for tachycardia. Labetalol was increased to 200 mg PO BID. She had a normal spontaneous vaginal delivery on 08/12/23 at 1000. She delivered a live female baby, Daxa, weighing 7 lb 13 oz. APGARs 8 (1 min), 9 (5 min). EBL 250 mL. She did well . Pain controlled. Light lochia. Breast feeding. Voiding without difficulty and passing flatus. Tolerating regular diet. Denies fever/chills, chest pain and shortness of breath. No headaches, vision changes, lighteadedness/dizziness. Vital signs stable, afebrile. Continue Labetalol 200 mg PO BID. Heart regular rate and rhythm. Lungs clear to auscultation. Abdomen soft, nontender. No lower extremity edema. No calf tenderness to palpation. Ambulating well ad brian. Normal hospital course. Discharged home on PPD # 2 with instructions to follow-up in the office in 2 weeks. Exam Data for Last 24 hours Vital signs and Labs for Last 24 Hours: Temp Pulse Resp BP Pulse Ox O2 Del Method 98.6 F 86 17 140/80 99 Room Air 08/14/23 04:35 08/14/23 04:35 08/14/23 04:35 08/14/23 04:35 08/14/23 04:35 08/14/23 04:35 I & O for Last 24 hours: Intake & Output 08/11/23 08/12/23 08/13/23 08/14/23 23:59 23:59 23:59 23:59 Weight 163 lb Constitutional Constitutional: no acute distress and cooperative *Routine HEENT Exam Head: Present normocephalic and atraumatic Eye: Absent conjunctivae pink ENT: Present mucous membranes moist *Routine Neck Exam Neck: Present full ROM *Routine Respiratory Exam Respiratory: Present CTA bilaterally and normal respiratory effort *Routine Cardiovascular Exam Cardiovascular: Present RRR *Routine Abdominal Exam Abdominal: Present soft; Absent tenderness Comments: Uterine fundus firm and below umbilicus *Routine Rectal Exam Patient deferred: visual exam *Routine Exam Patient deferred: external exam *Routine Extremities Exam Extremities: Present edema; Absent full ROM or calf tenderness *Routine Neurological Exam Neurological: Present alert, oriented X3 and moving all extremities Routine Psychiatric Exam Psychiatric: Present normal affect and cooperative DS: Diagnosis Discharge Diagnosis (1) 39 weeks gestation of : Status: Acute Code(s): Z3A.39 - 39 weeks gestation of (2) Status post normal vaginal delivery: Status: Acute (3) Gestational hypertension: Status: Acute Code(s): O13.9 - Gestational [-induced] hypertension without significant protein uria, unspecified trimester (4) Tobacco use affecting , antepartum: Status: Acute Code(s): O99.330 - Smoking (tobacco) complicating , unspecified trimester (5) Acute blood loss anemia (ABLA): Status: Acute Code(s): D62 - Acute posthemorrhagic anemia (6) Depression: Status: Acute Code(s): F32.A - Depression, unspecified Qualifiers: Depression Type: unspecified Qualified Code(s): F32.A - Depression, unspecified (7) Anxiety: Status: Chronic Code(s): F41.9 - Anxiety disorder, unspecified Meds Home Medications and Allergies Home Medications Medication Instructions Recorded Confirmed Type ferrous sulfate 325 mg (65 mg 325 mg PO DAILY #30 tabs 05/25/23 08/12/23 Rx iron) tablet,delayed release vitamins no.119-iron 1 tab PO DAILY #30 tabs 05/25/23 08/12/23 Rx fumarate 29 mg-folic acid 1 mg tablet labetalol 100 mg tablet 200 mg PO BID #120 tabs 08/14/23 Rx New Prescriptions to Start Prescriptions: labetalol Divina Burger Allergies Allergy/AdvReac Type Severity Reaction Status Date / Time No Known Allergies Allergy Verified 08/12/23 06:35 Discharge Plan Disposition Patient Disposition: Home, Self-Care Condition: Good Discharge Order Discharge Orders: Discharge Order (Routine); Ordered 08/14/23 Ordered By: Divina Burger Follow up Plan Follow up with: Mohamud Pizano MD [Staff Physician] - 2 weeks Prescriptions/Medication Reconciliation: New labetalol 100 mg Tablet 200 mg PO BID Qty: 120 0RF Continued PNV 119-iron fum-folic acid 29 mg iron- 1 mg tablet 1 tab PO DAILY Qty: 30 6RF ferrous sulfate 325 mg (65 mg iron) tablet,delayed release (DR/EC) 325 mg PO DAILY Qty: 30 6RF Discontinued labetalol 100 mg tablet 50 mg PO DAILY Problem Reconciliation Problems Reviewed?: Yes Patient Discharge Instructions ACTIVITY: Limited activity DIET: continue same diet and regular diet Additional Instructions: Discharge: 1. Take 800 mg Ibuprofen every 8 hours as needed for pain. You can also take 500-1000 mg of Tylenol in between doses, every 6-8 hours. 2. Nothing in the vagina for 6 weeks - no intercourse, douching or tampons. No tub baths/hot tubs or swimming pools 3. Reasons to return to L&D or call On-Call doctor - fever (greater than 100.4) - heavy vaginal bleeding (soaking through 1 pad in less than 2 hours) - vaginal discharge (malodorous and/or purulent) - severe headaches not resolved by medication or rest and leg tenderness/edema 4. depression/blues - Normal to feel anxious/overwhelmed for first 2 weeks - Talk to your doctor if: severe anxiety, trouble bonding with baby, withdrawing from other family members, thoughts of harming yourself or others Divina Burger DO [facility] [phone] Providers Primary Care Provider: Pedro Rainey [place] Provider: Mohamud Pizano Attending Provider: Mohamud Pizano
[2023-08-14] MEDS: LABETALOL 100MG TABLET 200 MG PO (08:40)
[2023-08-14] MEDS: ACETAMINOPHEN 325MG TAB 650 MG PO (09:47)
[2023-08-14] MEDS: IBUPROFEN 400 MG TABLET 800 MG PO (09:48)
== END 2023-08-14 11:50 | disposition home or self-care (01) | DRG 806 ==
PROVIDERS: Admitting Provider Nurse Practitioner Obstetrics & Gynecology; PCP Internal Medicine Adolescent Medicine; Visit Provider Nurse Practitioner Obstetrics & Gynecology
DX: O13.4 Gestational [pregnancy-induced] hypertension without significant proteinuria, complicating childbirth (principal); D62 Acute posthemorrhagic anemia; Z37.0 Single live birth; Z3A.39 39 weeks gestation of pregnancy; O99.334 Smoking (tobacco) complicating childbirth; O90.81 Anemia of the puerperium; O99.892 Other specified diseases and conditions complicating childbirth; R00.0 Tachycardia, unspecified
CPT/HCPCS: 59409; 59025; 80307; 81001; 85014; 85018; 85025; 86850; 94761; G0283

== ENCOUNTER 2023-12-07 14:33 | Outpatient (CLI) | payer MEDICAID, SELFPAY ==
[2023-12-07 16:11] LABS: HCG,Quantitative < 2 mIU/ml (0-5.42)
== END 2023-12-07 23:59 | disposition home or self-care (01) ==
LOC: LAB 14:34
PROVIDERS: PCP Internal Medicine Adolescent Medicine; Visit Provider Nurse Practitioner Obstetrics & Gynecology
DX: N92.6 Irregular menstruation, unspecified (principal)
CPT/HCPCS: 36415; 84144; 84702

== ENCOUNTER 2023-12-21 15:06 | Outpatient (CLI) | payer MEDICAID, SELFPAY ==
[2023-12-21 16:16] LABS: HCG,Quantitative < 2 mIU/ml (0-5.42)
== END 2023-12-21 23:59 | disposition home or self-care (01) ==
LOC: LAB 15:07
PROVIDERS: PCP Internal Medicine Adolescent Medicine; Visit Provider Nurse Practitioner Obstetrics & Gynecology
DX: N92.6 Irregular menstruation, unspecified (principal); Z32.00 Encounter for pregnancy test, result unknown
CPT/HCPCS: 36415; 84702

== ENCOUNTER 2024-01-29 18:03 | Emergency (ER) | payer MEDICAID, SELFPAY ==
[2024-01-29 18:35] VITALS: BP 124/61; PULSE 95; RESP 16; TEMP 36.9; O2SAT 96; BMI 26.5
--- NOTE | 2024-01-29 18:42 | EXP.UTC ---
Discharge Plan Disposition Patient Disposition: Home, Self-Care Condition: Good Prescriptions Prescriptions: New levofloxacin 500 mg tablet 500 mg PO DAILY Qty: 7 0RF phenazopyridine [Pyridium] 200 mg tablet 200 mg PO Q8H Qty: 6 0RF No Action metronidazole 0.75 % (37.5mg/5 gram) gel 1 appful vaginal QHS 5 Days Qty: 70 0RF labetalol 100 mg tablet 100 mg PO BID Qty: 60 2RF Referrals Follow up/Referrals: Pedro Rainey MD [Primary Care Provider] - See instructions Clinical Impressions Clinical Impression: UTI (urinary tract infection) Instructions Patient Instructions: DI for Urinary Tract Infection (UTI) Discharge ED Provider: Luli Murray [facility] [place] HPI General Stated complaint: Lower back pain,urine dark Mode of Arrival: Ambulatory Source of Information: Patient Limitations: No Limitations Time Seen by Provider: 01/29/24 18:48 Description of Symptoms (Recalled from Triage Doc. by RN): pt c/o burning with urination and lower back pain, pt thinks she has a UTI. symptoms ongoing since 01/28/24 HEENT Symptoms (Recalled from RN notes): No Resp Symptoms (Recalled from RN notes): No Skin Symptoms (Recalled from RN notes): No MS Symptoms (Recalled from RN notes): No Functional Status (Recalled from RN notes): wnl History of Present Illness Provider Complaint: Low back pain, dysuria X 4 days. No fever. No nausea or vomiting. Onset (ago): day(s) (4) Location: abdomen Radiation: non-radiation Relieving factors: none Exacerbating factors: none Associated symptoms: denies other symptoms Treatments prior to arrival: none Related Data Previous Rx's Medication Instructions Recorded labetalol 100 mg tablet 100 mg PO BID #60 tabs 10/23/23 metronidazole 0.75 % (37.5 mg/5 1 appful vaginal QHS 5 days #70 12/25/23 gram) vaginal gel grams levofloxacin 500 mg tablet 500 mg PO DAILY #7 tabs 01/29/24 phenazopyridine 200 mg tablet 200 mg PO Q8H 6 doses #6 tabs 01/29/24 (Pyridium) Allergies Allergy/AdvReac Type Severity Reaction Status Date / Time No Known Allergies Allergy Verified 01/29/24 18:38 Worker's Comp Is this a Worker's Comp case?: No PFSH PFSH Disclaimer: The information contained in this section may have been updated after the patient was seen, as this information can be updated by other users. Medical History Essential hypertension Eustachian tube dysfunction Tinnitus Surgical History No history of previous surgery Family History Other Cancer Coronary artery disease Diabetes Heart attack Hypertension Social History Smoking Status: Current every day smoker tobacco type: cigarettes packs per day: 1 alcohol intake: never substance use type: denies use and marijuana current occupational status: unemployed Travel in the last 8 weeks: None household members: children housing: apartment marital status: single number of children: 2 caffeine: Yes do you feel safe at home: Yes victim of physical abuse: No victim of emotional abuse: No victim of sexual abuse: No ROS Obtained: Yes All systems reviewed & no additional complaints except as documented Genitourinary Female Genitourinary: Reports dysuria Physical Exam General General appearance: alert and in no apparent distress Head Head exam: atraumatic and normocephalic Eye Eye exam: Present normal appearance Expanded ENT Exam External ear exam: Present normal external inspection Mouth exam: Present normal external inspection Throat exam: Present normal inspection Neck Neck exam: Present normal inspection Chest Chest inspection: Present normal inspection and symmetric chest wall rise Respiratory Respiratory exam: Present normal lung sounds bilaterally Cardiovascular Cardiovascular exam: Present regular rate and normal rhythm Abdominal Exam Abdominal exam: Present normal bowel sounds Extremities Exam Extremities exam: Present normal inspection Back Exam Back exam: Present normal inspection Neurological Exam Neurological exam: Present alert and oriented X3 Psychiatric Psychiatric exam: Present normal affect and normal mood Skin Skin exam: Present warm, dry and intact Lymphatic Lymphatic Findings: no adenopathy Medical Decision Making [place] Inquiry Pt receiving controlled substance: No Vital Signs: 01/29/24 18:35 Temperature 98.5 F Temperature Source Oral Pulse Rate [Left] 95 H Respiratory Rate 16 Blood Pressure [Right Arm] 124/61 Blood Pressure Mean [Right Arm] 82 Blood Pressure Source [Right Arm] Automatic Cuff Blood Pressure Position [Right Arm] Sitting 02 Sat by Pulse Oximetry 96 Oxygen Delivery Method Room Air Lab Data Lab results reviewed: Yes I reviewed the patient's lab results.
[2024-01-29 19:09] VITALS: BP 124/61; PULSE 95; RESP 16; TEMP 36.9
== END 2024-01-29 19:11 | disposition home or self-care (01) ==
PROVIDERS: Emergency Provider Physician Assistant; PCP Internal Medicine Adolescent Medicine
DX: N39.0 Urinary tract infection, site not specified (principal); M54.59 Other low back pain; R30.0 Dysuria
CPT/HCPCS: 99212; 99214; G0463

== ENCOUNTER 2024-02-12 10:56 | Outpatient (CLI) | payer MEDICAID, SELFPAY | END 2024-02-12 23:59 | disposition home or self-care (01) | LOC: RT 10:56 | PROVIDERS: PCP Internal Medicine Adolescent Medicine; Visit Provider Nurse Practitioner Family | DX: R00.2 Palpitations (principal) | CPT/HCPCS: 93225; 93227 ==

== ENCOUNTER 2024-02-15 13:42 | Outpatient (CLI) | payer MEDICAID, SELFPAY ==
--- NOTE | 2024-02-15 14:05 | CA_ITS ---
APPROVED REPORT EXAM: Comprehensive 2D, Doppler, and color-flow Echocardiogram [employer] Manager: Tessie Bowie CRT Ht: 5 ft 4 in Wt: 147lbs BSA: 1.72 BP: 109/69 mmHg Indications: Chest Pain, Shortness of Breath, Palpitations 2D Dimensions LA Volume 11.10 mL LA Volume Index 6.30 mL/m2 (M/F) 16-34 M-Mode Dimensions RVDd 2.36 cm (0.9-2.6) LA Diam 2.56 cm (1.9-4.0) LVDd 4.32 cm (3.5-5.7) LVDs 3.02 cm (3.5-5.7) IVSd 0.79 cm (0.6-1.1) PWd 0.64 cm (0.6-1.1) EF (Teich) 57.60% FS 30.10% EDV (Teich) 84.00 mL ESV (Teich) 35.60 mL LV Diastology E Decel Time 147 (160-240 msec) E/A Ratio 1.00 MED A' 5.30 cm/s LAT A' 7.00 cm/s Aortic Valve AO Peak GR. 3.90 mmHg Mitral Valve MV A Velocity 52.0 (40-130 cm/s) E/A Ratio 1.00 Pulmonary Valve PV Peak Velocity 85.0 (50-150 cm/s) Tricuspid Valve TR P. Velocity 191.00 cm/s RAP Estimate 10.00 mmHg RVSP 24.50 mmHg Left Ventricle The left ventricle is normal size. The left ventricular systolic function is normal. The left ventricular ejection fraction is within the normal range. There is normal left ventricular wall thickness. There is normal LV segmental wall motion. The left ventricular diastolic function is normal. LVEF is 55%. Right Ventricle The right ventricle is normal size. The right ventricular systolic function is normal. Atria The left atrium size is normal. The right atrium size is normal. There is no Doppler evidence of interatrial shunt. Aortic Valve The aortic valve opens well. There is no aortic valvular stenosis. No aortic regurgitation is present. Mitral Valve The mitral valve is normal in structure. No evidence of mitral valve stenosis. There is no mitral valve regurgitation noted. Tricuspid Valve The tricuspid valve leaflets are thin and pliable. Trace tricuspid regurgitation. There is insufficient TR jet to estimate RVSP. Pulmonic Valve The pulmonary valve is normal in structure. Trace pulmonic regurgitation. Great Vessels The aortic root is normal in size. The ascending aorta is not well-visualized. IVC is normal in size and collapses >50% with inspiration. Pericardium There is no pericardial effusion. Other Information Study Quality: Adequate Conclusion Normal biventricular systolic function. No significant valvular stenosis or regurgitation. Electronically signed by : Akiko Mathis MD 02/17/2024 22:49:32
== END 2024-02-15 23:59 | disposition home or self-care (01) ==
LOC: RT 13:43
PROVIDERS: PCP Internal Medicine Adolescent Medicine; Visit Provider Nurse Practitioner Family
DX: R00.2 Palpitations (principal); R06.00 Dyspnea, unspecified; R07.89 Other chest pain; R42 Dizziness and giddiness; R55 Syncope and collapse
CPT/HCPCS: 93270; 93306

== ENCOUNTER 2024-03-22 16:39 | Outpatient (CLI) | payer MEDICAID, SELFPAY ==
[2024-03-22 18:19] LABS: HCG,Quantitative < 2 mIU/ml (0-5.42)
[2024-03-24 08:23] LABS: Progesterone 4.2 ng/mL (.)
== END 2024-03-22 23:59 | disposition home or self-care (01) ==
LOC: LAB 16:40
PROVIDERS: PCP Pediatrics; Visit Provider Nurse Practitioner Obstetrics & Gynecology
DX: N92.6 Irregular menstruation, unspecified (principal)
CPT/HCPCS: 84144; 84702

== ENCOUNTER 2024-04-28 18:44 | Emergency (ER) | payer MEDICAID, SELFPAY ==
--- NOTE | 2024-04-28 18:42 | ECG_ITS ---
APPROVED REPORT Exam: Resting ECG HR:103 bpm ECG Measurements Heart Rate 103 AXES MT 148 P 57 QRSd 84 QRS 79 QT 327 T 42 QTc 387 Conclusion SINUS TACHYCARDIA ABNORMAL RHYTHM ECG Electronically signed by : JIMMIE MANCINI, 04/28/2024 22:17:28
[2024-04-28 18:44] VITALS: BP 168/85; PULSE 91; RESP 20; TEMP 36.9; O2SAT 99; BMI 25.7
[2024-04-28 18:46] VITALS: BMI 25.7
--- NOTE | 2024-04-28 18:48 | XR_ITS ---
PROCEDURE INFORMATION: Exam: XR Chest Exam date and time: 04/28/2024 7:43 PM Age: 29 years old Clinical indication: Pain; Chest pressure; Additional info: Chest pain TECHNIQUE: Imaging protocol: Radiologic exam of the chest. Views: 1 view. COMPARISON: No relevant prior studies available. FINDINGS: Lungs: Unremarkable. No consolidation. Pleural spaces: Unremarkable. No pleural effusion. No pneumothorax. Heart/Mediastinum: Unremarkable. No cardiomegaly. Bones/joints: Unremarkable. IMPRESSION: No acute findings.
--- NOTE | 2024-04-28 18:55 | ED_ITS ---
<Statement entered by Medina Sheppard DO - 04/28/24 22:08> I was consulted by the SHABNAM, and we discussed the complexity of the problems being addressed. I approved the treatment and management plan for this patient's care in the emergency department, thus performing a substantive portion of the medical decision making. Medina Sheppard DO Discharge Plan Disposition Patient Disposition: Home, Self-Care Condition: Good Prescriptions Prescriptions: No Action propranolol 60 mg capsule,extended release 24 hr 60 mg PO DAILY Qty: 30 4RF levofloxacin 500 mg tablet 500 mg PO DAILY Qty: 7 0RF labetalol 100 mg tablet 100 mg PO BID Qty: 60 2RF Referrals Follow up/Referrals: Pedro Rainey MD [Primary Care Provider] - See instructions Activity Restrictions/Add. Instructions Additional Instructions/Restrictions: Follow-up with cardiology as scheduled. Return to the ER for any worsening signs or symptoms as needed. Follow-up with your PCP within 48 hours. Clinical Impressions Clinical Impression: Chest pain Qualifiers: Chest pain type: unspecified Qualified Code(s): R07.9 - Chest pain, unspecified Instructions Patient Instructions: DI for Atypical Chest Pain Print Language Print Language: Upper Sorbian Discharge ED Provider: Medina Sheppard HPI <GRIS Pugh - Last Filed: 04/28/24 21:34> General Chief Complaint: Chest Pain Stated Complaint: cp Time Seen by Provider: 04/28/24 19:01 Mode of Arrival: Ambulatory Source of Information: Patient Limitations: No Limitations Description of Symptoms (Recalled from ER Triage Doc. by RN): epigastric pain,left under breast History of Present Illness HPI narrative: Patient presents for evaluation of chest pain. Patient began having chest pain when she awoke this morning. The pain was located at the left costal margin. There was no association with oral intake. Patient is able to tolerate oral intake. She has not had nausea vomiting diarrhea shortness of breath fever chills hemoptysis hematochezia melena hematemesis. Patient reports that the pain has migrated to her left upper back throughout the day. It is present currently at the time of her exam. She does not have a cardiac history of cardiovascular disease but does have a history of arrhythmia and currently is on propranolol daily Related Data Previous Rx's ?Medication ?Instructions ?Recorded labetalol 100 mg tablet 100 mg PO BID #60 tabs 10/23/23 levofloxacin 500 mg tablet 500 mg PO DAILY #7 tabs 02/25/24 propranolol 60 mg capsule,24 60 mg PO DAILY #30 caps 03/09/24 hr,extended release Allergies Allergy/AdvReac Type Severity Reaction Status Date / Time No Known Allergies Allergy Verified 03/09/24 13:28 [facility] <GRIS Pugh - Last Filed: 04/28/24 21:34> [facility] Disclaimer: The information contained in this section may have been updated after the patient was seen, as this information can be updated by other users. Medical History Pre-syncope Essential hypertension Eustachian tube dysfunction Tinnitus Surgical History No history of previous surgery Family History Other Cancer Coronary artery disease Diabetes Heart attack Hypertension Social History Smoking Status: Current every day smoker tobacco type: cigarettes packs per day: 1 alcohol intake: never substance use type: denies use and marijuana current occupational status: unemployed Travel in the last 8 weeks: None household members: children housing: apartment marital status: single number of children: 2 caffeine: Yes do you feel safe at home: Yes victim of physical abuse: No victim of emotional abuse: No victim of sexual abuse: No <GRIS Pugh - Last Filed: 04/28/24 21:34> ROS Obtained: Yes Systems reviewed as appropriate & no additional complaints except as documented Physical Exam <GRIS Pugh Last Filed: 04/28/24 21:34> General General appearance: alert and in no apparent distress Respiratory Respiratory exam: Present normal lung sounds bilaterally Cardiovascular Cardiovascular exam: Present regular rate Neurological Exam Neurological exam: Present alert and oriented X3 HEART Score <GRIS Pugh Last Filed: 04/28/24 21:34> HEART Score HEART Score assessment performed?: Yes History (anamnesis): Slightly suspicious ECG: Normal Age: <45 years Risk factors: 1-2 risk factors Troponin: </= normal limit HEART Score: 1 Critical Care <GRIS Pugh Last Filed: 04/28/24 21:34> Critical Care Time Critical Care Time: No Medical Decision Making <GRIS Pugh - Last Filed: 04/28/24 21:34> Medical Records Medical records reviewed: Yes I reviewed the patient's medical records. Harlan Messer Pt receiving controlled substance: No Vital Signs Vital Signs: 04/28/24 18:44 04/28/24 19:00 04/28/24 19:50 Temperature 98.5 F 98.1 F Temperature Source Oral Oral Pulse Rate 90 Pulse Rate [Right] 91 H Respiratory Rate 20 16 Blood Pressure 116/73 111/69 Blood Pressure [Right Arm] 168/85 H Blood Pressure Mean 87 Blood Pressure Mean [Right Arm] 112 Blood Pressure Source Automatic Cuff Blood Pressure Position Sitting 02 Sat by Pulse Oximetry 99 Oxygen Delivery Method Room Air Lab Data Lab results reviewed: Yes I reviewed the patient's lab results. Labs: Lab Results 04/28/24 18:30: D-Dimer 0.35, Lipase 55, Serum HCG, Qual Negative 04/28/24 18:47: Urine Color Yellow, Urine Appearance Clear, Urine pH 6.0, Ur Specific [place] 1.010, Urine Protein Negative, Urine Glucose (UA) Negative, Urine Ketones Negative, Urine Blood Negative, Urine Nitrate Negative, Urine Bilirubin Negative, Urine Urobilinogen 0.2, Ur Leukocyte Esterase Negative, Urine RBC 3-5, Urine WBC Occasional, Ur Squamous Epith Cells 10-20, Urine Bacteria 2+ 04/28/24 18:50: WBC 9.4, RBC 4.54, Hgb 13.9, Hct 43.3, MCV 95.4, MCH 30.6, MCHC 32.1, RDW 13.2, Plt Count 311, MPV 7.0 L, Neut % (Auto) 67.0, Lymph % (Auto) 26.9, [place] % (Auto) 4.1, Eos % (Auto) 1.3, Baso % (Auto) 0.8, Neut # (Auto) 6.3, Lymph # (Auto) 2.5, [place] # (Auto) 0.4, Eos # (Auto) 0.1, Baso # (Auto) 0.1, Sodium 141, Potassium 3.6, Chloride 112 H, Carbon Dioxide 25, Anion Gap 7.6, BUN 8, Creatinine 0.80, Estimated Creat Clear 110, Estimated GFR 84, Est GFR ( Amer) 102, Glucose 91, Calcium 9.5, Total Bilirubin 0.5, AST 24, ALT 15, Alkaline Phosphatase 67, Troponin I < 0.01, Total Protein 7.5 D, Albumin 4.5, Globulin 3.0, Albumin/Globulin Ratio 1.5 04/28/24 18:50 04/28/24 18:50 Response Orders (Tests/Meds): ED MEDICATIONS Discontinued Medications Generic Name Dose Route Start Last Admin Trade Name Freq PRN Reason Stop Dose Admin Acetaminophen 1,000 mg 04/28/24 19:12 04/28/24 19:29 Acetaminophen 1,000mg/100ml Vial IV 04/28/24 19:13 Not Given ONCE ONE Belladonna Alkaloids 60 ml 04/28/24 19:12 04/28/24 19:29 Belladonna Alkaloids 60 Ml Ml PO 04/28/24 19:13 Not Given ONCE ONE Lactated Ringer's 1,000 mls @ 999 mls/hr 04/28/24 19:12 04/28/24 19:29 Lactated Ringer's 1000 Ml Bag IV 04/28/24 20:12 Not Given .Q1H1M ONE Ketorolac Tromethamine 15 mg 04/28/24 19:12 04/28/24 19:29 Ketorolac 30mg/Ml Vial IV 04/28/24 19:13 Not Given ONCE ONE ORDERS Category Date Time Status CXR --portable [XR chest portable] Stat Exams 04/28/24 18:48 Completed Complete Blood Count Auto Diff Stat Lab 04/28/24 18:50 Completed Comprehensive Metabolic Panel Stat Lab 04/28/24 18:50 Completed D-Dimer Stat Lab 04/28/24 18:30 Completed Lipase Stat Lab 04/28/24 18:30 Completed Serum [HCG Qualitative, Serum] Stat Lab 04/28/24 18:30 Completed Troponin I Stat Lab 04/28/24 18:50 Completed UA [Urinalysis and Microscopic] Stat Lab 04/28/24 18:47 Completed Urine Culture Stat Micro 04/28/24 18:47 Received MDM Narrative Medical Decision Narrative: In summary patient is a 29-year-old female who presents to the emergency department for evaluation of chest pain. Patient is hemodynamically stable upon arrival, afebrile. Physical exam is remarkable for nonreproducible chest pain on palpation. Breath sounds are clear and equal bilaterally to the bases. Heart sounds are normal. Abdominal exam is benign with no tenderness rebound guarding or rigidity with normal bowel sounds. Differential diagnosis includes esophagitis versus gastritis versus ACS versus pneumonia etc. Initial workup will be conducted with hematologic labs twelve-lead EKG plain film chest x-ray. Initial interventions include crystalloid bolus Toradol Tylenol GI cocktail. Initial workup reviewed by me shows her hematologic labs are nonactionable normal troponin and my informed interpretation of her plain film chest x-ray shows no acute processes.. Upon repeat evaluation patient had complete resolution of her chest pain prior to medication and thus declined the medication.. Given this via interactive discussion and patient directed discharge a second troponin will not be performed as patient has cardiology follow-up tomorrow. Given that there are no red flags for any worsening signs or symptoms and it is appropriate to discharge her with close follow-up with cardiology. Patient given strict return precautions. <Medina Sheppard, DO - Last Filed: 04/28/24 20:39> Vital Signs Vital Signs: 04/28/24 18:44 04/28/24 19:00 04/28/24 19:50 Temperature 98.5 F 98.1 F Temperature Source Oral Oral Pulse Rate 90 Pulse Rate [Right] 91 H Respiratory Rate 20 16 Blood Pressure 116/73 111/69 Blood Pressure [Right Arm] 168/85 H Blood Pressure Mean 87 Blood Pressure Mean [Right Arm] 112 Blood Pressure Source Automatic Cuff Blood Pressure Position Sitting 02 Sat by Pulse Oximetry 99 Oxygen Delivery Method Room Air Lab Data Labs: Lab Results 04/28/24 18:30: D-Dimer 0.35, Lipase 55, Serum HCG, Qual Negative 04/28/24 18:47: Urine Color Yellow, Urine Appearance Clear, Urine pH 6.0, Ur Specific [place] 1.010, Urine Protein Negative, Urine Glucose (UA) Negative, Urine Ketones Negative, Urine Blood Negative, Urine Nitrate Negative, Urine Bilirubin Negative, Urine Urobilinogen 0.2, Ur Leukocyte Esterase Negative, Urine RBC 3-5, Urine WBC Occasional, Ur Squamous Epith Cells 10-20, Urine Bacteria 2+ 04/28/24 18:50: WBC 9.4, RBC 4.54, Hgb 13.9, Hct 43.3, MCV 95.4, MCH 30.6, MCHC 32.1, RDW 13.2, Plt Count 311, MPV 7.0 L, Neut % (Auto) 67.0, Lymph % (Auto) 26.9, [place] % (Auto) 4.1, Eos % (Auto) 1.3, Baso % (Auto) 0.8, Neut # (Auto) 6.3, Lymph # (Auto) 2.5, [place] # (Auto) 0.4, Eos # (Auto) 0.1, Baso # (Auto) 0.1, Sodium 141, Potassium 3.6, Chloride 112 H, Carbon Dioxide 25, Anion Gap 7.6, BUN 8, Creatinine 0.80, Estimated Creat Clear 110, Estimated GFR 84, Est GFR ( Amer) 102, Glucose 91, Calcium 9.5, Total Bilirubin 0.5, AST 24, ALT 15, Alkaline Phosphatase 67, Troponin I < 0.01, Total Protein 7.5 D, Albumin 4.5, Globulin 3.0, Albumin/Globulin Ratio 1.5 Response Orders (Tests/Meds): ED MEDICATIONS Discontinued Medications Generic Name Dose Route Start Last Admin Trade Name Freq PRN Reason Stop Dose Admin Acetaminophen 1,000 mg 04/28/24 19:12 04/28/24 19:29 Acetaminophen 1,000mg/100ml Vial IV 04/28/24 19:13 Not Given ONCE ONE Belladonna Alkaloids 60 ml 04/28/24 19:12 04/28/24 19:29 Belladonna Alkaloids 60 Ml Ml PO 04/28/24 19:13 Not Given ONCE ONE Lactated Ringer's 1,000 mls @ 999 mls/hr 04/28/24 19:12 04/28/24 19:29 Lactated Ringer's 1000 Ml Bag IV 04/28/24 20:12 Not Given .Q1H1M ONE Ketorolac Tromethamine 15 mg 04/28/24 19:12 04/28/24 19:29 Ketorolac 30mg/Ml Vial IV 04/28/24 19:13 Not Given ONCE ONE ORDERS Category Date Time Status CXR --portable [XR chest portable] Stat Exams 04/28/24 18:48 Completed Complete Blood Count Auto Diff Stat Lab 04/28/24 18:50 Completed Comprehensive Metabolic Panel Stat Lab 04/28/24 18:50 Completed D-Dimer Stat Lab 04/28/24 18:30 Completed Lipase Stat Lab 04/28/24 18:30 Completed Serum [HCG Qualitative, Serum] Stat Lab 04/28/24 18:30 Completed Troponin I Stat Lab 04/28/24 18:50 Completed UA [Urinalysis and Microscopic] Stat Lab 04/28/24 18:47 Completed Urine Culture Stat Micro 04/28/24 18:47 Received ECG Data Tracing #1: Attestation: I reviewed this ECG and interpreted as documented below: ECG Narrative: Sinus tachycardia with a ventricular rate of [address] changes concerning for ischemia. Normal axis and intervals ECG initial impression date: 04/28/24 ECG initial impression time: 18:43
[2024-04-28 19:00] VITALS: BP 116/73
[2024-04-28 19:04] LABS: Basophils # 0.1 K/mm3 (0-0.2); Basophils % 0.8 % (0.1-2.0); Eosinophils # 0.1 K/mm3 (0.0-0.4); Eosinophils % 1.3 % (0.1-12.0); Hematocrit 43.3 % (37.0-47.0); Hemoglobin 13.9 g/dL (12.2-16.2); Lymphocytes # 2.5 K/mm3 (0.7-4.5); Lymphocytes % 26.9 % (10-50); Mean Corpuscular HGB Conc 32.1 g/dL (31.8-35.4); Mean Corpuscular Hemoglobin 30.6 pg (27.0-31.2); Mean Corpuscular Volume 95.4 fl (81-99); Monocytes # 0.4 K/mm3 (0.1-1.0); Monocytes % 4.1 % (1.7-9.3); Neutrophils # 6.3 K/mm3 (1.8-7.8); Platelet Count 311 K/mm3 (142-424); Red Blood Count 4.54 M/mm3 (4.20-5.40); Red Cell Distribution Width 13.2 % (11.5-17.5); White Blood Count 9.4 K/mm3 (4.8-10.8)
[2024-04-28 19:16] LABS: Chloride 112 mmol/L (98-107)
[2024-04-28 19:17] LABS: Albumin Level 4.5 g/dl (3.5-5.0); Potassium 3.6 mmoL/L (3.5-5.1); Sodium 141 mmol/L (136-145)
[2024-04-28 19:19] LABS: Blood Urea Nitrogen 8 mg/dl (7-17); Creatinine Clearance Estimated 110 mL/min (50-200); Estimated Glomerular Filt Rate 84 ml/min (>60); GFR (African American) 102 ML/MIN (>60)
[2024-04-28 19:20] LABS: Alanine Aminotransferase 15 U/L (12-78); Albumin/Globulin Ratio 1.5 (1.1-1.8); Alkaline Phosphatase 67 U/L (38-126); Anion Gap 7.6 mEq/L (5-15); Aspartate Amino Transferase 24 U/L (14-36); Bilirubin,Total 0.5 mg/dl (0.2-1.3); Calcium 9.5 mg/dl (8.4-10.2); Carbon Dioxide 25 mmol/L (22.0-30.0); Glucose 91 mg/dl (74-100); Total Protein,Serum 7.5 g/dl (6.3-8.2)
[2024-04-28 19:20] LABS: Lipase 55 U/L (23-300)
[2024-04-28 19:23] LABS: HCG Qualitative, Serum Negative (Negative)
[2024-04-28 19:25] LABS: Microscopic, Urine URINE MICROSCOPIC (MICROSCOPIC)
[2024-04-28 19:33] LABS: Appearance,Urine CLEAR (Clear); Bilirubin,Urine Negative (Negative); Blood, Urine Negative (Negative); Color,Urine YELLOW (Yellow); Glucose,Urine (UA) Negative (Negative); Ketones,Urine Negative (Negative); Leukocyte Esterase,Urine Negative (Negative); Nitrate,Urine Negative (Negative); Protein,Urine Negative (Negative); Urobilinogen,Urine 0.2 EU/dl (0.2)
[2024-04-28 19:46] LABS: Troponin I < 0.01 ng/ml (0.00-0.034)
[2024-04-28 19:50] VITALS: BP 111/69; PULSE 90; RESP 16; TEMP 36.7; O2SAT 99
[2024-04-28 20:02] LABS: D-Dimer 0.35 ug/mL (0.0-0.5)
[2024-04-28 20:05] LABS: Bacteria,Urine 2+ /lpf; WBC,Urine Occasional #/hpf (0-3)
== END 2024-04-28 19:56 | disposition home or self-care (01) ==
PROVIDERS: Emergency Provider Emergency Medicine; PCP Internal Medicine Adolescent Medicine
DX: R07.9 Chest pain, unspecified (principal); M54.6 Pain in thoracic spine; R00.0 Tachycardia, unspecified
CPT/HCPCS: 71045; 80053; 81001; 83690; 84484; 84703; 85025; 85378; 87086; 93005; 99284

== ENCOUNTER 2024-05-05 10:54 | Emergency (ER) | payer MEDICAID, SELFPAY ==
[2024-05-05 11:20] VITALS: BP 133/83; PULSE 95; RESP 20; TEMP 36.9; O2SAT 97; BMI 26.2
--- NOTE | 2024-05-05 11:43 | EXP.UTC ---
Discharge Plan Disposition Patient Disposition: Home, Self-Care Condition: Good Prescriptions Prescriptions: New azithromycin [Zithromax] 250 mg tablet 250 mg PO UD DOSE PK Qty: 6 0RF Rx Instructions: Take two (2) tablets today, then one (1) tablet days #2 thru #5 ibuprofen 600 mg tablet 600 mg PO Q6HP PRN (Reason: Mild Pain) Qty: 30 0RF ondansetron 4 mg Tablet,Disintegrating 4 mg PO Q8H PRN (Reason: Nausea) Qty: 12 0RF No Action propranolol 60 mg capsule,extended release 24 hr 60 mg PO DAILY Qty: 30 4RF levofloxacin 500 mg tablet 500 mg PO DAILY Qty: 7 0RF labetalol 100 mg tablet 100 mg PO BID Qty: 60 2RF Referrals Follow up/Referrals: Pedro Rainey MD [Primary Care Provider] - See instructions Activity Restrictions/Add. Instructions Additional Instructions/Restrictions: Drink plenty of fluids. Take tylenol or ibuprofen for pain or fever. Take the medications as directed. Follow up with your regular doctor. GO TO THE ER FOR ANY WORSENING SYMPTOMS Clinical Impressions Clinical Impression: Acute viral syndrome, Sinusitis Stand Alone Forms Stand Alone Forms: Work/School Release Instructions Patient Instructions: DI for Sinusitis Print Language Print Language: Guatemalan Discharge ED Provider: Ankur Sharma [facility] General Stated complaint: R ear pain Mode of Arrival: Ambulatory Source of Information: Patient Time Seen by Provider: 05/05/24 11:22 Description of Symptoms (Recalled from Triage Doc. by RN): RIGHT EAR PAIN WITH CONGESTION, GREEN SPUTUM HEENT Symptoms (Recalled from RN notes): Yes Resp Symptoms (Recalled from RN notes): Yes Skin Symptoms (Recalled from RN notes): No MS Symptoms (Recalled from RN notes): No Functional Status (Recalled from RN notes): WNL Related Data Previous Rx's ?Medication ?Instructions ?Recorded labetalol 100 mg tablet 100 mg PO BID #60 tabs 10/23/23 levofloxacin 500 mg tablet 500 mg PO DAILY #7 tabs 02/25/24 propranolol 60 mg capsule,24 60 mg PO DAILY #30 caps 03/09/24 hr,extended release azithromycin 250 mg tablet 250 mg PO UD DOSE PK #6 tabs 05/05/24 (Zithromax) ibuprofen 600 mg tablet 600 mg PO Q6HP PRN Mild Pain #30 09/26/24 tabs ondansetron 4 mg disintegrating 4 mg PO Q8H PRN Nausea #12 tabs 05/05/24 tablet Allergies Allergy/AdvReac Type Severity Reaction Status Date / Time No Known Allergies Allergy Verified 03/09/24 13:28 Worker's Comp Is this a Worker's Comp case?: No [facility] Disclaimer: The information contained in this section may have been updated after the patient was seen, as this information can be updated by other users. Medical History Pre-syncope Essential hypertension Eustachian tube dysfunction Tinnitus Surgical History No history of previous surgery Family History Other Cancer Coronary artery disease Diabetes Heart attack Hypertension Social History Smoking Status: Current every day smoker tobacco type: cigarettes packs per day: 1 alcohol intake: never substance use type: denies use and marijuana current occupational status: unemployed Travel in the last 8 weeks: None household members: children housing: apartment marital status: single number of children: 2 caffeine: Yes do you feel safe at home: Yes victim of physical abuse: No victim of emotional abuse: No victim of sexual abuse: No ROS Obtained: Yes All systems reviewed & no additional complaints except as documented Constitutional Constitutional: Reports poor appetite Eyes Eyes: Reports system reviewed and no additional complaints, except as documented ENT Ears, Nose, Mouth, and Throat: Reports as per HPI Cardiovascular Cardiovascular: Reports system reviewed and no additional complaints, except as documented and Denies chest pain Respiratory Respiratory: Denies shortness of breath, Denies chest congestion, Reports cough, Denies stridor and Denies wheezing Gastrointestinal Gastrointestingal: Reports system reviewed and no additional complaints, except as documented; Denies abdominal pain, diarrhea or vomiting Musculoskeletal Musculoskeletal: Reports system reviewed and no additional complaints, except as documented and Denies arthralgias Integumentary/Breasts Skin/Breast: Reports system reviewed and no additional complaints, except as documented and Denies rash Neurologic Neurologic: Denies paresthesias Allergic/Immunologic Allergic/Immunologic: Denies wheezing Physical Exam General General appearance: alert and in no apparent distress Eye Eye exam: Present normal appearance, PERRL and EOMI ENT ENT exam: Present mucous membranes moist and normal external ear exam Expanded ENT Exam External ear exam: Present normal external inspection TM/Canal exam: Bilateral TM: erythema and bulging Nose exam: Absent sinus tenderness Nasal speculum exam: Bilateral: normal Mouth exam: Present normal external inspection; Absent drooling Teeth exam: Present normal inspection Throat exam: Present tonsillar erythema and tonsillomegaly Neck Neck exam: Present normal inspection, full ROM and trachea midline; Absent tenderness, lymphadenopathy or thyromegaly Chest Chest inspection: Present normal inspection and symmetric chest wall rise; Absent tenderness or rash Respiratory Respiratory exam: Present normal lung sounds bilaterally; Absent respiratory distress, wheezes, stridor or accessory muscle use Cardiovascular Cardiovascular exam: Present regular rate, normal rhythm and normal heart sounds Abdominal Exam Abdominal exam: Present soft; Absent distention, tenderness, guarding, rebound or rigidity Extremities Exam Extremities exam: Present normal inspection, full ROM and normal capillary refill; Absent tenderness or calf tenderness Back Exam Back exam: Present normal inspection and full ROM; Absent tenderness Neurological Exam Neurological exam: Present alert and oriented X3 Psychiatric Psychiatric exam: Present normal affect and normal mood Skin Skin exam: Present warm, dry, intact and normal color Lymphatic Lymphatic Findings: no adenopathy Medical Decision Making Medical Records Medical records reviewed: No I reviewed the patient's medical records. Screening: Per USPSTF and CDC recommendations, given the prevalence of disease in our region, it is our hospital?s policy to screen for HIV and viral Hepatitis for all patients aged 18 and over and those with ongoing risk factors. [place] Inquiry Pt receiving controlled substance: No Vital Signs: 05/05/24 11:20 Temperature 98.5 F Temperature Source Oral Pulse Rate [Left Radial] 95 H Respiratory Rate 20 Blood Pressure [Left Arm] 133/83 Blood Pressure Mean [Left Arm] 99 02 Sat by Pulse Oximetry 97
[2024-05-05 12:16] VITALS: BP 133/83; PULSE 95; RESP 20; TEMP 36.9
== END 2024-05-05 12:17 | disposition home or self-care (01) ==
PROVIDERS: Emergency Provider Nurse Practitioner Family; PCP Internal Medicine Adolescent Medicine
DX: J01.90 Acute sinusitis, unspecified (principal); H92.01 Otalgia, right ear; B34.9 Viral infection, unspecified
CPT/HCPCS: 87635; 99212; 99214; G0463

== ENCOUNTER 2024-05-22 14:43 | Emergency (ER) | payer MEDICAID, SELFPAY ==
[2024-05-22 16:15] VITALS: BP 0/0; PULSE 0; RESP 0; TEMP -17.7; TEMP 0
== END 2024-05-22 16:17 | disposition left against medical advice (07) ==
LOC: UTC 14:45
PROVIDERS: Emergency Provider Nurse Practitioner; PCP Internal Medicine Adolescent Medicine
DX: Z53.21 Procedure and treatment not carried out due to patient leaving prior to being seen by health care provider (principal)

== ENCOUNTER 2024-05-23 10:08 | Emergency (ER) | payer MEDICAID, SELFPAY ==
--- NOTE | 2024-05-23 10:25 | ED_ITS ---
Discharge Plan Disposition Patient Disposition: Home, Self-Care Condition: Good Prescriptions Prescriptions: New phenazopyridine 200 mg Tablet 200 mg PO TID 2 Days Qty: 6 0RF ondansetron 4 mg Tablet,Disintegrating 4 mg PO Q8H PRN (Reason: Nausea) Qty: 12 0RF nitrofurantoin monohyd/m-cryst [Macrobid] 100 mg Capsule 100 mg PO BID Qty: 10 0RF Rx Instructions: must administer with a meal/food No Action labetalol 100 mg tablet 100 mg PO BID Qty: 60 2RF Referrals Follow up/Referrals: Pedro Rainey MD [Primary Care Provider] - See instructions Activity Restrictions/Add. Instructions Additional Instructions/Restrictions: Drink plenty of fluids. Take tylenol or ibuprofen for pain or fever. Take the medications as directed. Follow up with your regular doctor. GO TO THE ER FOR ANY WORSENING SYMPTOMS The pyridium will make your urine turn orange, this is an expected side effect. It will stain your clothes if it comes into contact with them. We will culture the urine. That will tell what bacteria is causing your infection and which antibiotics will treat it best.This test takes 3 days to complete. Clinical Impressions Clinical Impression: UTI (urinary tract infection), Acute viral syndrome Instructions Patient Instructions: Urine Culture, DI for Urinary Tract Infection (UTI), DI for Viral Syndrome, Phenazopyridine Print Language Print Language: Algerian Discharge ED Provider: Ankur Sharma [facility] [place] General Stated complaint: burning urination sore throat Time Seen by Provider: 05/23/24 10:25 Related Data Previous Rx's ?Medication ?Instructions ?Recorded labetalol 100 mg tablet 100 mg PO BID #60 tabs 10/23/23 nitrofurantoin 100 mg PO BID #10 caps 05/23/24 monohydrate/macrocrystals 100 mg capsule (Macrobid) ondansetron 4 mg disintegrating 4 mg PO Q8H PRN Nausea #12 tabs 05/23/24 tablet phenazopyridine 200 mg tablet 200 mg PO TID 2 days #6 tabs 05/23/24 Allergies Allergy/AdvReac Type Severity Reaction Status Date / Time No Known Allergies Allergy Verified 03/09/24 13:28 [facility] Disclaimer: The information contained in this section may have been updated after the patient was seen, as this information can be updated by other users. Medical History (Updated 05/23/24 @ 10:58 by Ankur Sharma APRN) Depression Anxiety Pre-syncope Essential hypertension Eustachian tube dysfunction Tinnitus Surgical History No history of previous surgery Family History Other Cancer Coronary artery disease Diabetes Heart attack Hypertension Social History Smoking Status: Current every day smoker tobacco type: cigarettes packs per day: 1 alcohol intake: never substance use type: denies use and marijuana current occupational status: unemployed Travel in the last 8 weeks: None household members: children housing: apartment marital status: single number of children: 2 caffeine: Yes do you feel safe at home: Yes victim of physical abuse: No victim of emotional abuse: No victim of sexual abuse: No ROS Obtained: Yes All systems reviewed & no additional complaints except as documented Constitutional Constitutional: Reports system reviewed and no additional complaints, except as documented, Denies chills and Denies fever(s) Eyes Eyes: Denies eye discharge ENT Ears, Nose, Mouth, and Throat: Denies dysphagia, Denies sore throat and Denies throat swelling Cardiovascular Cardiovascular: Denies chest pain and Denies dyspnea Respiratory Respiratory: Denies chest congestion, Denies cough and Denies dyspnea Gastrointestinal Gastrointestingal: Denies abdominal pain, constipation, diarrhea, dysphagia, nausea or vomiting Genitourinary Female Genitourinary: Reports as per HPI, Reports dysuria, Reports urinary frequency, Denies urinary incontinence, Reports urinary hesitancy and Reports urinary urgency Musculoskeletal Musculoskeletal: Denies arthralgias and Reports back pain Integumentary/Breasts Skin/Breast: Denies rash Neurologic Neurologic: Denies paresthesias Allergic/Immunologic Allergic/Immunologic: Denies throat swelling Physical Exam General General appearance: alert and in no apparent distress Head Head exam: atraumatic and normocephalic Eye Eye exam: Present normal appearance, PERRL and EOMI ENT ENT exam: Present normal exam, mucous membranes moist, TM's normal bilaterally and normal external ear exam Neck Neck exam: Present normal inspection, full ROM and trachea midline; Absent tenderness, meningismus or lymphadenopathy Chest Chest inspection: Present normal inspection and symmetric chest wall rise; Absent tenderness Respiratory Respiratory exam: Present normal lung sounds bilaterally; Absent respiratory distress, wheezes or stridor Cardiovascular Cardiovascular exam: Present regular rate, normal rhythm and normal heart sounds Abdominal Exam Abdominal exam: Present soft and normal bowel sounds; Absent distention, tenderness, guarding, rebound, rigidity, incision, psoas sign, obturator sign, heel tap sign, Austin's sign, Rovsing's sign or tenderness at McBurney's Point Extremities Exam Extremities exam: Present normal inspection, full ROM and normal capillary refill; Absent tenderness, edema, joint swelling, calf tenderness or cyanosis Back Exam Back exam: Present normal inspection and full ROM; Absent tenderness, CVA tenderness (R) or CVA tenderness (L) Neurological Exam Neurological exam: Present alert, oriented X3 and normal gait Psychiatric Psychiatric exam: Present normal affect and normal mood Skin Skin exam: Present warm, dry, intact and normal color Lymphatic Lymphatic Findings: no adenopathy Medical Decision Making Medical Records Medical records reviewed: No I reviewed the patient's medical records. Screening: Per USPSTF and CDC recommendations, given the prevalence of disease in our region, it is our hospital?s policy to screen for HIV and viral Hepatitis for all patients aged 18 and over and those with ongoing risk factors. Harlan Inquiry Pt receiving controlled substance: No Lab Data Lab results reviewed: Yes I reviewed the patient's lab results.
[2024-05-23 10:30] VITALS: BP 119/83; PULSE 86; RESP 20; TEMP 36.9; O2SAT 99; BMI 26.0
[2024-05-23 10:47] LABS: UTC Pregnancy Test, Urine Negative (Negative); UTC Strep Screen (Rapid) Negative (Negative)
[2024-05-23 10:53] LABS: Microscopic, Urine URINE MICROSCOPIC (MICROSCOPIC)
[2024-05-23 11:12] LABS: Appearance,Urine CLEAR (Clear); Blood, Urine Negative (Negative); Color,Urine ORANGE (Yellow); Glucose,Urine (UA) TRACE (Negative); Ketones,Urine Negative (Negative); Leukocyte Esterase,Urine TRACE (Negative); Nitrate,Urine POSITIVE (Negative); Protein,Urine 1+ (Negative); Specific Gravity, Urine 1.025 (1.005-1.030)
[2024-05-23 11:17] VITALS: BP 119/83; PULSE 86; RESP 20; TEMP 36.9; O2SAT 99
[2024-05-23 11:17] LABS: Bilirubin,Urine 1+ (Negative)
[2024-05-23 11:34] LABS: Bacteria,Urine 1+ /lpf; Calcium Oxalate Crystals,Urine 3+ /lpf; WBC,Urine Occasional #/hpf (0-3)
== END 2024-05-23 11:19 | disposition home or self-care (01) ==
PROVIDERS: Emergency Provider Nurse Practitioner Family; PCP Internal Medicine Adolescent Medicine
DX: N39.0 Urinary tract infection, site not specified (principal); B34.9 Viral infection, unspecified
CPT/HCPCS: 81001; 81025; 87880; 99213; G0381

== ENCOUNTER 2024-07-01 13:14 | Emergency (ER) | payer MEDICAID, SELFPAY ==
[2024-07-01 13:40] VITALS: BP 124/62; PULSE 100; RESP 18; TEMP 36.6; O2SAT 97; BMI 26.4
--- NOTE | 2024-07-01 13:43 | ED_ITS ---
Discharge Plan Disposition Patient Disposition: Home, Self-Care Condition: Good Prescriptions Prescriptions: New cephalexin 500 mg capsule 500 mg PO BID 7 Days Qty: 14 0RF phenazopyridine [Pyridium] 200 mg tablet 200 mg PO Q8H 2 Days Qty: 6 0RF No Action labetalol 100 mg tablet 100 mg PO BID Qty: 60 2RF Referrals Follow up/Referrals: Pedro Rainey MD [Primary Care Provider] - See instructions Activity Restrictions/Add. Instructions Additional Instructions/Restrictions: *Increase fluids. Water not Soda or Tea *Start antibiotic immediately and be sure to take as ordered for the FULL length of time although you should start to see improvement over the next 48 hours *Pyridium as needed Remember this medication will turn your urine . This is normal but it will stain what ever it gets on *You should not use Pyridium for more than 48 hours. If so , follow up with your primary physician to review urine culture and ensure that antibiotic is adequate for infection *Be SURE to follow up anytime for new or worsening symptoms with your family doctor. AND in 48 hours for urine culture results with your family doctor, if you do not have a doctor then you may call back to the [facility] for urine culture results and further treatment. We do recommend that you choose and establish care with a Primary Care Physician. ?AND follow up with them ?in 10-14 days to repeat UA to ensure infection is resolved and blood no longer present *Be sure to let your PCP know that we sent urine cultures from the [facility] so they can follow up to ensure that you area the on the correct antibiotic Call your doctor office and make appointment for 48 hours (2 days from today) ?to follow up and get the results of your urine culture and further treatment Clinical Impressions Clinical Impression: UTI (urinary tract infection) Instructions Patient Instructions: DI for Urinary Tract Infection (UTI), Urinary Tract Infection, Cephalexin Print Language Print Language: Portuguese Discharge ED [place] [facility] [place] General Stated complaint: urinary urgency Mode of Arrival: Ambulatory Source of Information: Patient Time Seen by Provider: 07/01/24 13:43 Description of Symptoms (Recalled from Triage Doc. by RN): UTI S/S HEENT Symptoms (Recalled from RN notes): No Resp Symptoms (Recalled from RN notes): No Skin Symptoms (Recalled from RN notes): No MS Symptoms (Recalled from RN notes): No Functional Status (Recalled from RN notes): WNL History of Present Illness Provider Complaint: Patient states that she started last night with feeling of urgency and frequency and burning when she urinates feels like she may have a UTI again Related Data Previous Rx's ?Medication ?Instructions ?Recorded labetalol 100 mg tablet 100 mg PO BID #60 tabs 10/23/23 cephalexin 500 mg capsule 500 mg PO BID 7 days #14 caps 07/01/24 phenazopyridine 200 mg tablet 200 mg PO Q8H pain 2 days #6 tabs 07/01/24 (Pyridium) Allergies Allergy/AdvReac Type Severity Reaction Status Date / Time No Known Allergies Allergy Verified 06/20/24 15:32 Worker's Comp Is this a Worker's Comp case?: No [facility] Disclaimer: The information contained in this section may have been updated after the patient was seen, as this information can be updated by other users. Medical History Depression Anxiety Pre-syncope Essential hypertension Eustachian tube dysfunction Tinnitus Surgical History No history of previous surgery Family History Other Cancer Coronary artery disease Diabetes Heart attack Hypertension Social History Smoking Status: Current every day smoker tobacco type: cigarettes packs per day: 1 alcohol intake: never substance use type: denies use and marijuana current occupational status: unemployed household members: children housing: apartment marital status: single number of children: 2 caffeine: Yes do you feel safe at home: Yes victim of physical abuse: No victim of emotional abuse: No victim of sexual abuse: No ROS Obtained: Yes All systems reviewed & no additional complaints except as documented and Yes Systems reviewed as appropriate & no additional complaints except as documented Constitutional Constitutional: Reports system reviewed and no additional complaints, except as documented, Reports as per HPI, Denies body ache, Denies chills and Denies fever(s) Eyes Eyes: Reports system reviewed and no additional complaints, except as documented and Reports as per HPI ENT Ears, Nose, Mouth, and Throat: Reports system reviewed and no additional complaints, except as documented and Reports as per HPI Cardiovascular Cardiovascular: Reports system reviewed and no additional complaints, except as documented and Reports as per HPI Respiratory Respiratory: Reports system reviewed and no additional complaints, except as documented and Reports as per HPI Gastrointestinal Gastrointestingal: Reports system reviewed and no additional complaints, except as documented and as per HPI; Denies abdominal pain, nausea or vomiting Genitourinary Female Genitourinary: Reports system reviewed and no additional complaints, except as documented, Reports as per HPI, Reports dysuria, Reports urinary frequency and Reports urinary urgency Musculoskeletal Musculoskeletal: Reports system reviewed and no additional complaints, except as documented and Reports as per HPI Physical Exam General General appearance: alert and in no apparent distress ENT ENT exam: Present normal exam, normal oropharynx, mucous membranes moist and TM's normal bilaterally Respiratory Respiratory exam: Present normal lung sounds bilaterally; Absent respiratory distress or wheezes Cardiovascular Cardiovascular exam: Present regular rate, normal rhythm and normal heart sounds Abdominal Exam Abdominal exam: Present soft and normal bowel sounds; Absent distention or tenderness Neurological Exam Neurological exam: Present alert, oriented X3 and normal gait Medical Decision Making Medical Records Screening: Per USPSTF and CDC recommendations, given the prevalence of disease in our region, it is our hospital?s policy to screen for HIV and viral Hepatitis for all patients aged 18 and over and those with ongoing risk factors. Harlan Inquiry Pt receiving controlled substance: No Harlan was queried for this patient: No Vital Signs: 07/01/24 13:40 Temperature 97.9 F Temperature Source Oral Pulse Rate [Left Radial] 100 H Respiratory Rate 18 Blood Pressure [Left Arm] 124/62 Blood Pressure Mean [Left Arm] 82 02 Sat by Pulse Oximetry 97
[2024-07-01 13:45] LABS: Apearance,Urine Clear (Clear); Color,Urine Dark Yellow (Yellow); Protein,Urine Trace (Negative); Specific Gravity, Urine 1.025 (1.005-1.030)
[2024-07-01 13:46] LABS: Bilirubin,Urine Negative (Negative); Blood, Urine Negative (Negative); Glucose,Urine (UA) Negative (Negative); Ketones,Urine TRACE (Negative); UTC Leukocyte Esterase,Urine Trace (Negative); UTC Nitrate,Urine Positive (Negative); Urobilinogen,Urine 1 EU/dl (0.2)
[2024-07-01 14:16] VITALS: BP 124/62; PULSE 100; RESP 18; TEMP 36.6
== END 2024-07-01 14:16 | disposition home or self-care (01) ==
PROVIDERS: Emergency Provider Nurse Practitioner; PCP Internal Medicine Adolescent Medicine
DX: N39.0 Urinary tract infection, site not specified (principal)
CPT/HCPCS: 81003; 87086; 99213; G0381

== ENCOUNTER 2024-10-26 20:25 | Emergency (ER) | payer MEDICAID, SELFPAY ==
[2024-10-26 20:31] VITALS: BP 139/82; PULSE 92; RESP 18; TEMP 37.1; O2SAT 100; BMI 27.6
--- NOTE | 2024-10-26 20:39 | PC.NURSE ---
Pt awake alert and oriented Skin pink warm and dry Resp full and easy Speech clear and appropriate.
[2024-10-26 20:46] LABS: Coronavirus 19, PCR Not Detected (NotDetected); Influenza A, PCR Not Detected (NotDetected); Influenza B, PCR Not Detected (NotDetected)
--- NOTE | 2024-10-26 21:26 | ED_ITS ---
Discharge Plan Disposition Patient Disposition: Home, Self-Care Chief Complaint: Upper Respiratory Infection Prescriptions Prescriptions: No Action propranolol 60 mg capsule,extended release 24 hr 60 mg PO DAILY Qty: 90 3RF Referrals Follow up/Referrals: Pedro Rainey MD [Primary Care Provider] - See instructions Activity Restrictions/Add. Instructions Additional Instructions/Restrictions: Call your family doctor to establish care for this visit to the emergency department and schedule follow-up within 48 hours to ensure improvement. If you have any worsening of your condition or any other concerning signs or symptoms, return to the emergency department or your primary care doctor for further evaluation. Nightly allergy medication can help with cough and congestion. Clinical Impressions Clinical Impression: Nasal congestion, Cough Print Language Print Language: Ivorian Discharge ED Provider: Sabino Black General Adult HPI General Chief complaint: Upper Respiratory Infection Stated complaint: chest on fire, cough, skin sensitive, congestion Time Seen by Provider: 10/26/24 20:44 Mode of Arrival: Ambulatory Source of Information: Patient Description of Symptoms (Recalled from ER Triage Doc. by RN): Pt presents for evaluation of nasal and chest congestion that started. Pt has a slightly productive cough. Pt also has c/o left shoulder pain that she has had for 3 weeks, pt states she thinks she has a pinched nerve. History of Present Illness HPI narrative: Please note that above description of symptoms, in this electronic medical record under categorization of recalled from ER triage doctor by RN are reflective of an initial nursing assessment, however, is not reflective of my full history and physical exam that was personally taken and clarified. Consequentially, this preceding description of symptoms, which may include the patient's categorized chief complaint in the EMR, do not reflect my personal clinical impression, and the ultimate description of history of present illness and patient stated complaints should be deferred to this section of the note. Unless stated otherwise or congruent with this section of the note, additional signs, symptoms, or incongruence should be interpreted as inaccurate with my clinical impression. Related Data Previous Rx's ?Medication ?Instructions ?Recorded propranolol 60 mg capsule,24 60 mg PO DAILY #90 caps 09/21/24 hr,extended release Allergies Allergy/AdvReac Type Severity Reaction Status Date / Time No Known Allergies Allergy Verified 10/11/24 13:51 [facility] Disclaimer: The information contained in this section may have been updated after the patient was seen, as this information can be updated by other users. Medical History Depression Anxiety Pre-syncope Essential hypertension Eustachian tube dysfunction Tinnitus Surgical History No history of previous surgery Family History Other Cancer Coronary artery disease Diabetes Heart attack Hypertension Social History Smoking Status: Current every day smoker tobacco type: cigarettes packs per day: 1 alcohol intake: never substance use type: denies use and marijuana current occupational status: unemployed Travel in the last 8 weeks: None household members: children housing: apartment marital status: single number of children: 2 caffeine: Yes do you feel safe at home: Yes victim of physical abuse: No victim of emotional abuse: No victim of sexual abuse: No Have you lived/traveled outside [place] in past 30 days?: No Contact w/someone who lives/traveled outside [place] past 30 days?: No Exposure to someone with infectious disease in past 14 days?: No Do you have a fever (greater than 100.4 F or 38 C)?: No Have you tested positive for COVID-19: No Exposed to someone with COVID-19 in past 14 days?: No Do you have a sore throat?: No Do you have a cough?: Yes Do you have any weakness?: No Do you have any diarrhea?: No Are you experiencing any unusual bleeding?: No Do you have any muscle aches/pain?: No Do you have any abdominal pain?: No Are you experiencing loss of taste or smell?: No Other Medical History Have you received the Flu Vaccine for this season: No Have you received the Pneumonia Vaccine: No ROS Obtained: Yes All systems reviewed & no additional complaints except as documented Physical Exam General General appearance: alert Head Head exam: atraumatic and normocephalic Eye Eye exam: Present normal appearance, PERRL and EOMI Neck Neck exam: Present normal inspection, full ROM and trachea midline Respiratory Respiratory exam: Absent respiratory distress, wheezes, stridor, accessory muscle use or prolonged expiratory phase Cardiovascular Cardiovascular exam: Present other (Pulses equal symmetric in upper and lower e xtremities) Abdominal Exam Abdominal exam: Present soft; Absent distention, tenderness or pulsatile mass Extremities Exam Extremities exam: Absent edema Neurological Exam Neurological exam: Present alert, oriented X3 and CN II-XII intact; Absent motor sensory deficit Skin Skin exam: Present warm and dry; Absent diaphoresis or erythema Medical Decision Making Medical Records Medical records reviewed: Yes I reviewed the patient's medical records. Screening: Per USPSTF and CDC recommendations, given the prevalence of disease in our region, it is our hospital?s policy to screen for HIV and viral Hepatitis for all patients aged 18 and over and those with ongoing risk factors. Harlan Inquiry Pt receiving controlled substance: No Harlan was queried for this patient: No Vital Signs: 10/26/24 20:31 Temperature 98.7 F Temperature Source Temporal Artery Scan Pulse Rate [Right] 92 H Respiratory Rate 18 Blood Pressure [Right Arm] 139/82 Blood Pressure Mean [Right Arm] 101 Blood Pressure Source [Right Arm] Automatic Cuff Blood Pressure Position [Right Arm] Sitting 02 Sat by Pulse Oximetry 100 Oxygen Delivery Method Room Air Lab Data Lab Results 10/26/24 20:35: SARS-CoV-2 (PCR) Not detected, Influenza A Untype (PCR) Not detected, Influenza Type B (PCR) Not detected Orders (Tests/Meds): ORDERS Category Date Time Status Rapid PCR Covid and Flu A/B Stat Lab 10/26/24 20:35 Completed Medical Decision Narrative: 29-year-old female history of smoking, presenting with congestion. States that congestion has been going on for a couple of days at this point. She has a cough that is her typical smoker's cough. States that this has not changed at all. No fevers or chills or systemic signs or symptoms. States that everyone in her household is had influenza over the past few days and she is nearly 1 that has not been diagnosed or caught it, fortunately. Patient also has side complaint of left posterior shoulder pain this been going on for months, made worse with sleeping incorrectly and certain motions. Made better with application of pressure. Unknown if these are related. History obtained the patient. On arrival, very clinically well-appearing. Speaking full sentences. Lungs are clear, cardiac exam without murmurs gallops or rubs. Nontachycardic. Saturating 100% on room air. Differential includes acute viral syndrome, among others. Viral swab was sent. On independent interpretation, this is negative for COVID or flu. I feel this is likely consistent with seasonal allergies or some other viral syndrome. Because patient has no indications for steroids or antibiotics, these were considered, but not deemed necessary. Negative physical exam, so chest x-ray was also considered, but not deemed necessary. Patient also not having change in cough, etc. Because patient at baseline without signs or symptoms of clinical decompensation, deemed appropriate for discharge. Resu lts were relayed to patient who voiced understanding and were agreeable to outpatient management and follow up. I discussed my clinical impression with patient and answered all questions. At this time, the evidence for any other entities in the differential is insufficient to warrant any further testing or ED observation. This was explained as well. Advisory was given that persistent or worsening symptoms require further evaluation. I confirmed the understanding of this discussion. [employer] disclaimer Much of this encounter note is an electronic technicians and trades workers spoken language to printed text. Electronic technicians and trades workers of the spoken language may permit errors. Although I have reviewed the note, some errors may still exist. Critical Care Critical Care Time Critical Care Time: No
[2024-10-26 21:32] VITALS: BP 140/80; PULSE 90; RESP 20; TEMP 36.8; O2SAT 96
== END 2024-10-26 21:34 | disposition home or self-care (01) ==
PROVIDERS: Emergency Provider Emergency Medicine; PCP Internal Medicine Adolescent Medicine
DX: R05.9 Cough, unspecified (principal); R09.81 Nasal congestion; R09.89 Other specified symptoms and signs involving the circulatory and respiratory systems; M25.512 Pain in left shoulder; F17.210 Nicotine dependence, cigarettes, uncomplicated; Z11.52 Encounter for screening for COVID-19
CPT/HCPCS: 87636; 99283

== ENCOUNTER 2024-11-02 19:07 | Emergency (ER) | payer MEDICAID, SELFPAY ==
--- NOTE | 2024-11-02 19:13 | ED_ITS ---
<Statement entered by Swapnil Davey MD - 11/02/24 21:50> I was consulted by the SHABNAM, and we discussed the complexity of the problems being addressed. I approved the treatment and management plan for this patient's care in the emergency department, thus performing a substantive portion of the medical decision making. Swapnil Davey MD Discharge Plan Disposition Patient Disposition: Home, Self-Care Condition: Good Prescriptions Prescriptions: New doxycycline hyclate 100 mg capsule 100 mg PO BID 10 Days Qty: 20 0RF prednisone 50 mg tablet 50 mg PO DAILY 5 Days Qty: 5 0RF lidocaine 5 % adhesive patch,medicated 1 patch topical DAILY Qty: 30 0RF Rx Instructions: leave on most painful area for up to 12 hrs obkxwjnikbdiusg-pqerxlhnz-QE [Bromfed DM] 2-30-10 mg/5 mL syrup 5 ml PO Q4H PRN (Reason: sinus symptoms) Qty: 118 0RF No Action propranolol 60 mg capsule,extended release 24 hr 60 mg PO DAILY Qty: 90 3RF Referrals Follow up/Referrals: Pedro Rainey MD [Primary Care Provider] - See instructions Activity Restrictions/Add. Instructions Additional Instructions/Restrictions: As we discussed please take your antibiotic and steroids till they are gone. I sent Bromfed into your pharmacy. You may use your Lidoderm patch 1 patch every 12 hours over the area of maximum discomfort. If you have continued new or worsening signs or symptoms follow-up with your PCP return to the ER as needed. Clinical Impressions Clinical Impression: Acute lower respiratory tract infection, Chest wall pain Print Language Print Language: Persian Discharge ED Provider: Swapnil Davey General Adult HPI <GRIS Pugh - Last Filed: 11/02/24 21:11> General Chief complaint: Chest Pain Stated complaint: pain under LT breath, cough Time Seen by Provider: 11/02/24 19:13 History of Present Illness HPI narrative: Patient presents for evaluation of left chest wall pain. Patient reports that she woke up this morning with left chest wall pain located primarily under her left breast. Patient has been symptomatic with a upper respiratory infection with cough myalgias headache nasal congestion for approximately 1 week. She was actually seen in the emergency department on 10/26/2024 and her COVID and flu test were negative at that time. Patient was given symptomatic and supportive treatment and ultimately discharged home. Patient reports that the cough persists but does not recall any particular pain associated with it. It does hurt worse with cough or deep breath better at rest. Patient denies shortness of breath fever chills hemoptysis hematochezia melena nausea vomiting diarrhea. Related Data Previous Rx's ?Medication ?Instructions ?Recorded propranolol 60 mg capsule,24 60 mg PO DAILY #90 caps 09/21/24 hr,extended release hjgnmfennepmvwg-bdnoeatwrwgtbhy-WL 5 ml PO Q4H PRN sinus symptoms 11/02/24 2 mg-30 mg-10 mg/5 mL oral syrup #118 mL (Bromfed DM) doxycycline hyclate 100 mg capsule 100 mg PO BID 10 days #20 caps 11/02/24 lidocaine 5 % topical patch 1 patch topical DAILY #30 ea 11/02/24 prednisone 50 mg tablet 50 mg PO DAILY 5 days #5 tabs 11/02/24 Allergies Allergy/AdvReac Type Severity Reaction Status Date / Time No Known Allergies Allergy Verified 10/11/24 13:51 [facility] <GRIS Pugh - Last Filed: 11/02/24 21:11> [facility] Disclaimer: The information contained in this section may have been updated after the patient was seen, as this information can be updated by other users. Medical History Depression Anxiety Pre-syncope Essential hypertension Eustachian tube dysfunction Tinnitus Surgical History No history of previous surgery Family History Other Cancer Coronary artery disease Diabetes Heart attack Hypertension Social History Smoking Status: Current every day smoker tobacco type: cigarettes packs per day: 1 alcohol intake: never substance use type: denies use and marijuana current occupational status: unemployed Travel in the last 8 weeks: None household members: children housing: apartment marital status: single number of children: 2 caffeine: Yes do you feel safe at home: Yes victim of physical abuse: No victim of emotional abuse: No victim of sexual abuse: No Have you lived/traveled outside US in past 30 days?: No Contact w/someone who lives/traveled outside US past 30 days?: No Exposure to someone with infectious disease in past 14 days?: No Do you have a fever (greater than 100.4 F or 38 C)?: No Have you tested positive for COVID-19: No Exposed to someone with COVID-19 in past 14 days?: No Do you have a sore throat?: No Do you have a cough?: No Do you have any weakness?: No Do you have any diarrhea?: No Are you experiencing any unusual bleeding?: No Do you have any muscle aches/pain?: No Do you have any abdominal pain?: No Are you experiencing loss of taste or smell?: No Other Medical History Have you received the Flu Vaccine for this season: No Have you received the Pneumonia Vaccine: No <GRIS Pugh - Last Filed: 11/02/24 21:11> ROS Obtained: Yes Systems reviewed as appropriate & no additional complaints except as documented Physical Exam <GRIS Pugh - Last Filed: 11/02/24 21:11> General General appearance: alert and in no apparent distress Respiratory Respiratory exam: Present normal lung sounds bilaterally Cardiovascular Cardiovascular exam: Present regular rate Neurological Exam Neurological exam: Present alert and oriented X3 Medical Decision Making <GRIS Pugh - Last Filed: 11/02/24 21:11> Medical Records Medical records reviewed: Yes I reviewed the patient's medical records. Screening: Per USPSTF and CDC recommendations, given the prevalence of disease in our region, it is our hospital?s policy to screen for HIV and viral Hepatitis for all patients aged 18 and over and those with ongoing risk factors. [place] Inquiry Pt receiving controlled substance: No Vital Signs: 11/02/24 19:15 11/02/24 19:20 11/02/24 19:29 Temperature 99 F Temperature Source Oral Pulse Rate 102 H Pulse Rate [Right] 93 H Respiratory Rate 16 Blood Pressure 131/84 122/83 Blood Pressure [Right Arm] 127/83 Blood Pressure Mean [Right Arm] 97 02 Sat by Pulse Oximetry 99 95 99 Oxygen Delivery Method Room Air Lab Data Lab results reviewed: Yes I reviewed the patient's lab results. Lab Results 11/02/24 19:43: WBC 11.9 H, RBC 4.90, Hgb 14.9, Hct 43.1, MCV 88.0, MCH 30.4, MCHC 34.6, RDW 11.7, Plt Count 355, MPV 9.5, Neut % (Auto) 70.7, Lymph % (Auto) 23.2, Marshall % (Auto) 4.3, Eos % (Auto) 0.9, Baso % (Auto) 0.6, Neut # (Auto) 8.4 H, Lymph # (Auto) 2.8, Marshall # (Auto) 0.5, Eos # (Auto) 0.1, Baso # (Auto) 0.1, D-Dimer 0.41, Sodium 139, Potassium 3.9, Chloride 104, Carbon Dioxide 28, Anion Gap 10.9, BUN 9, Creatinine 0.90, Estimated Creat Clear 105, Estimated GFR 74, Est GFR ( Amer) 89, Glucose 96, Calcium 9.4, Total Bilirubin 0.3, AST 23, ALT 14, Alkaline Phosphatase 84, Troponin I < 0.01, NT-Pro-B Natriuret Pep < 20.0, Total Protein 7.7, Albumin 4.7, Globulin 3.0, Albumin/Globulin Ratio 1.6 11/02/24 19:43 11/02/24 19:43 Orders (Tests/Meds): ED MEDICATIONS Discontinued Medications Generic Name Dose Route Start Last Admin Trade Name Cristopherq PRN Reason Stop Dose Admin Acetaminophen 1,000 mg 11/02/24 19:15 11/02/24 19:34 Acetaminophen 500mg Tab PO 11/02/24 19:16 1,000 mg ONCE ONE Administration Ibuprofen 800 mg 11/02/24 19:30 11/02/24 19:35 Ibuprofen 400 Mg Tablet PO 11/02/24 19:31 800 mg ONCE ONE Administration Lidocaine 1 each 11/02/24 19:15 11/02/24 19:33 Lidocaine 5% Transdermal Patch TD 11/02/24 19:16 1 each ONCE ONE Administration ORDERS Category Date Time Status Chest XR 2 view (NOT portable) [XR chest 2V] Stat Exams 11/02/24 19:15 Completed BNP [NT Pro Brain Natriuretic Pep.] Stat Lab 11/02/24 19:43 Results CBC w/Auto Diff [Complete Blood Count Auto Diff] Stat Lab 11/02/24 19:43 Completed CMP [Comprehensive Metabolic Panel] Stat Lab 11/02/24 19:43 Results D-Dimer Stat Lab 11/02/24 19:43 Completed Full Resp Panel w/COVID ([facility]) Routine Lab 11/02/24 19:45 Received Procalcitonin Stat Lab 11/02/24 19:43 Results Trop I [Troponin I] Stat Lab 11/02/24 19:43 Results Troponin I Q3H Lab 11/02/24 22:15 Ordered Troponin I Q3H Lab 11/03/24 01:15 Ordered HEART Score History (anamnesis): Slightly suspicious ECG: Normal Age: <45 years Risk factors: 1-2 risk factors Troponin: </= normal limit HEART Score: 1 Medical Decision Narrative: In summary patient is a 29-year-old female who presents to the emergency department for evaluation of left chest wall pain. Patient is normotensive at 127/83 with a pulse of 93 and normal sinus rhythm on the bedside monitor breathing 16 times a minute satting at 99% on room air upon arrival, with a temperature of 99. Physical exam is remarkable for clear breath sounds with no increased work of breathing or adventitious sounds however patient has a coarse bronchial cough, patient is slightly tender in the left anterior lateral chest wall but no palpable bony deformity ecchymosis contusions abrasions.. Differential diagnosis includes chest wall pain versus PE versus pneumonia versus less likely but still possible ACS etc. Initial workup will be conducted with hematologic labs plain film chest x-ray twelve-lead EKG full respiratory panel.. Initial interventions include Tylenol ibuprofen and Lidoderm patch. Initial workup reviewed by me and patient's hematologic labs significant for a white count of 11.9 with normal H&H and absolute neutrophil count of 8.4 D-dimer 0.41 and undetectable troponin and given that patient has had symptoms continuously for more than 8 hours a single troponin is sufficient to rule out ACS as a potential cause and normal NT proBNP and my informal interpretation of her plain film chest x-ray shows no acute processes prior to final radiology read. Please see the final report for official interpretation.. Upon repeat evaluation patient reported modest improvement after Lidoderm and Tylenol Motrin. Given this the patient is appropriate for discharge with a prescription for doxycycline prednisone Bromfed and patient will follow-up in the patient portal for the results of her full respiratory panel. If patient has continued new or worsening signs or symptoms she will follow-up PCP return to the ER as needed. <Swapnil Davey MD - Last Filed: 11/02/24 19:38> Vital Signs: 11/02/24 19:15 11/02/24 19:20 11/02/24 19:29 Temperature 99 F Temperature Source Oral Pulse Rate 102 H Pulse Rate [Right] 93 H Respiratory Rate 16 Blood Pressure 131/84 122/83 Blood Pressure [Right Arm] 127/83 Blood Pressure Mean [Right Arm] 97 02 Sat by Pulse Oximetry 99 95 99 Oxygen Delivery Method Room Air Lab Data Lab Results 11/02/24 19:43: WBC 11.9 H, RBC 4.90, Hgb 14.9, Hct 43.1, MCV 88.0, MCH 30.4, MCHC 34.6, RDW 11.7, Plt Count 355, MPV 9.5, Neut % (Auto) 70.7, Lymph % (Auto) 23.2, Marshall % (Auto) 4.3, Eos % (Auto) 0.9, Baso % (Auto) 0.6, Neut # (Auto) 8.4 H, Lymph # (Auto) 2.8, Marshall # (Auto) 0.5, Eos # (Auto) 0.1, Baso # (Auto) 0.1, D-Dimer 0.41, Sodium 139, Potassium 3.9, Chloride 104, Carbon Dioxide 28, Anion Gap 10.9, BUN 9, Creatinine 0.90, Estimated Creat Clear 105, Estimated GFR 74, Est GFR ( Amer) 89, Glucose 96, Calcium 9.4, Total Bilirubin 0.3, AST 23, ALT 14, Alkaline Phosphatase 84, Troponin I < 0.01, NT-Pro-B Natriuret Pep < 20.0, Total Protein 7.7, Albumin 4.7, Globulin 3.0, Albumin/Globulin Ratio 1.6 Orders (Tests/Meds): ED MEDICATIONS Discontinued Medications Generic Name Dose Route Start Last Admin Trade Name Freq PRN Reason Stop Dose Admin Acetaminophen 1,000 mg 11/02/24 19:15 11/02/24 19:34 Acetaminophen 500mg Tab PO 11/02/24 19:16 1,000 mg ONCE ONE Administration Ibuprofen 800 mg 11/02/24 19:30 11/02/24 19:35 Ibuprofen 400 Mg Tablet PO 11/02/24 19:31 800 mg ONCE ONE Administration Lidocaine 1 each 11/02/24 19:15 11/02/24 19:33 Lidocaine 5% Transdermal Patch TD 11/02/24 19:16 1 each ONCE ONE Administration ORDERS Category Date Time Status Chest XR 2 view (NOT portable) [XR chest 2V] Stat Exams 11/02/24 19:15 Completed BNP [NT Pro Brain Natriuretic Pep.] Stat Lab 11/02/24 19:43 Results CBC w/Auto Diff [Complete Blood Count Auto Diff] Stat Lab 11/02/24 19:43 Completed CMP [Comprehensive Metabolic Panel] Stat Lab 11/02/24 19:43 Results D-Dimer Stat Lab 11/02/24 19:43 Completed Full Resp Panel w/COVID ([facility]) Routine Lab 11/02/24 19:45 Received Procalcitonin Stat Lab 11/02/24 19:43 Results Trop I [Troponin I] Stat Lab 11/02/24 19:43 Results Troponin I Q3H Lab 11/02/24 22:15 Ordered Troponin I Q3H Lab 11/03/24 01:15 Ordered ECG Data Tracing #1: Independently interpreted by me rate is 96, rhythm is regular, axis is borderline rightward deviated, no ST elevation in anatomical contiguous leads, QTc 395 Critical Care <GRIS Pugh - Last Filed: 11/02/24 21:11> Critical Care Time Critical Care Time: No
[2024-11-02 19:15] VITALS: BP 127/83; PULSE 93; RESP 16; TEMP 37.2; O2SAT 99; BMI 27.6
--- NOTE | 2024-11-02 19:15 | XR_ITS ---
PROCEDURE INFORMATION: Exam: XR Chest Exam date and time: 11/02/2024 7:12 PM Age: 29 years old Clinical indication: Cough; Additional info: Cough and left-sided chest pain TECHNIQUE: Imaging protocol: Radiologic exam of the chest. Views: 2 views. COMPARISON: CR XR CHEST PORTABLE 04/28/2024 7:43 PM FINDINGS: Lungs: Lungs are clear. Pleural spaces: No pleural effusion. No pneumothorax. Heart/Mediastinum: Cardiomediastinal silouhette is normal. Bones/joints: Unremarkable. IMPRESSION: Normal chest radiograph.
--- NOTE | 2024-11-02 19:17 | ECG_ITS ---
APPROVED REPORT Exam: Resting ECG HR:96 bpm ECG Measurements Heart Rate 96 AXES VT 154 P 66 QRSd 80 QRS 94 QT 342 T 53 QTc 395 Conclusion SINUS RHYTHM BORDERLINE RIGHT AXIS DEVIATION [QRS AXIS > 90] BORDERLINE ECG No STEMI Electronically signed by : GRIFFIN REYES, 11/03/2024 07:08:30
[2024-11-02 19:20] VITALS: BP 131/84; O2SAT 95
[2024-11-02 19:29] VITALS: BP 122/83; PULSE 102; O2SAT 99
[2024-11-02] MEDS: LIDOCAINE 5% TRANSDERMAL PATCH 1 EACH TD (19:33)
[2024-11-02] MEDS: ACETAMINOPHEN 500MG TAB 1000 MG PO (19:34)
[2024-11-02] MEDS: IBUPROFEN 400 MG TABLET 800 MG PO (19:35)
--- NOTE | 2024-11-02 19:40 | PC.NURSE ---
Patient refuses IV; states she will allow a blood draw
[2024-11-02 19:51] LABS: Adenovirus,PCR Not Detected (NotDetected); Bordetella Pertussis Not Detected (NotDetected); Chlamydophila Pneumoniae, PCR Not Detected (NotDetected); Coronavirus 19, PCR Not Detected (NotDetected); Coronavirus 229E Not Detected (NotDetected); Coronavirus NL63 Not Detected (NotDetected); Coronavirus OC43 Not Detected (NotDetected); Coronovirus HKU1,PCR Not Detected (NotDetected); Human Metapneumovirus Not Detected (NotDetected); Influenza A, PCR Not Detected (NotDetected); Influenza AH1, 2009 Not Detected (NotDetected); Influenza AH1, PCR Not Detected (NotDetected); Influenza AH3,PCR Not Detected (NotDetected); Influenza B, PCR Not Detected (NotDetected); Mycoplasma Pneumoniae, PCR Not Detected (NotDetected); Parainfluenza 1, PCR Not Detected (NotDetected); Parainfluenza 2, PCR Not Detected (NotDetected); Parainfluenza 3, PCR Not Detected (NotDetected); Parainfluenza 4, PCR Not Detected (NotDetected); Respiratory Syncytial Virus Not Detected (NotDetected); Rhinovirus/Enterovirus Not Detected (NotDetected)
[2024-11-02 19:54] LABS: Basophils # 0.1 K/mm3 (0-0.2); Basophils % 0.6 % (0.1-2.0); Eosinophils # 0.1 K/mm3 (0.0-0.4); Eosinophils % 0.9 % (0.1-12.0); Hematocrit 43.1 % (37.0-47.0); Hemoglobin 14.9 g/dL (12.2-16.2); Lymphocytes # 2.8 K/mm3 (0.7-4.5); Lymphocytes % 23.2 % (10-50); Mean Corpuscular HGB Conc 34.6 g/dL (31.8-35.4); Mean Corpuscular Hemoglobin 30.4 pg (27.0-31.2); Mean Platelet Volume 9.5 fl (7.4-10.4); Monocytes # 0.5 K/mm3 (0.1-1.0); Monocytes % 4.3 % (1.7-9.3); Neutrophils # 8.4 K/mm3 (1.8-7.8); Neutrophils % 70.7 % (37.0-80.0); Platelet Count 355 K/mm3 (142-424); Red Cell Distribution Width 11.7 % (11.5-17.5); White Blood Count 11.9 K/mm3 (4.8-10.8)
[2024-11-02 19:58] LABS: Albumin Level 4.7 g/dl (3.5-5.0); Chloride 104 mmol/L (98-107); Potassium 3.9 mmoL/L (3.5-5.1); Sodium 139 mmol/L (136-145)
[2024-11-02 20:01] LABS: Alanine Aminotransferase 14 U/L (12-78); Albumin/Globulin Ratio 1.6 (1.1-1.8); Alkaline Phosphatase 84 U/L (38-126); Anion Gap 10.9 mEq/L (5-15); Aspartate Amino Transferase 23 U/L (14-36); Bilirubin,Total 0.3 mg/dl (0.2-1.3); Blood Urea Nitrogen 9 mg/dl (7-17); Calcium 9.4 mg/dl (8.4-10.2); Carbon Dioxide 28 mmol/L (22.0-30.0); Creatinine Clearance Estimated 105 mL/min (50-200); Estimated Glomerular Filt Rate 74 ml/min (>60); GFR (African American) 89 ML/MIN (>60); Glucose 96 mg/dl (74-100); Total Protein,Serum 7.7 g/dl (6.3-8.2)
[2024-11-02 20:05] LABS: D-Dimer 0.41 ug/mL (0.0-0.5)
[2024-11-02 20:17] LABS: NT Pro Brain Natriuretic Pep. < 20.0 pg/mL (0-125)
[2024-11-02 20:19] LABS: Troponin I < 0.01 ng/ml (0.00-0.034)
[2024-11-02 21:04] LABS: Procalcitonin < 0.030 ng/mL (0.0-2.0)
[2024-11-02 21:17] VITALS: BP 128/74; PULSE 72; RESP 16; TEMP 36.6; O2SAT 98
== END 2024-11-02 21:18 | disposition home or self-care (01) ==
PROVIDERS: Physician Assistant; Emergency Provider Emergency Medicine; PCP Internal Medicine Adolescent Medicine
DX: J22 Unspecified acute lower respiratory infection (principal); R07.89 Other chest pain; R05.9 Cough, unspecified; M79.10 Myalgia, unspecified site; R51.9 Headache, unspecified; R09.81 Nasal congestion; F17.210 Nicotine dependence, cigarettes, uncomplicated
CPT/HCPCS: 71046; 80053; 83880; 84145; 84484; 85025; 85378; 87633; 93005; 99284

== ENCOUNTER 2024-11-21 15:50 | Emergency (ER) | payer MEDICAID, SELFPAY ==
[2024-11-21 15:58] VITALS: BP 111/67; PULSE 70; RESP 18; TEMP 36.8; O2SAT 99; BMI 27.6
--- NOTE | 2024-11-21 17:09 | ED_ITS ---
Discharge Plan Disposition Patient Disposition: Home, Self-Care Prescriptions Prescriptions: No Action propranolol 60 mg capsule,extended release 24 hr 60 mg PO DAILY Qty: 90 3RF doxycycline hyclate 100 mg capsule 100 mg PO BID 10 Days Qty: 20 0RF prednisone 50 mg tablet 50 mg PO DAILY 5 Days Qty: 5 0RF lidocaine 5 % adhesive patch,medicated 1 patch topical DAILY Qty: 30 0RF Rx Instructions: leave on most painful area for up to 12 hrs qanpqspjtgteeyw-xwyvhqnwt-YF [Bromfed DM] 2-30-10 mg/5 mL syrup 5 ml PO Q4H PRN (Reason: sinus symptoms) Qty: 118 0RF Referrals Follow up/Referrals: Pedro Rainey MD [Primary Care Provider] - See instructions Activity Restrictions/Add. Instructions Additional Instructions/Restrictions: With your neurologic exam being completely normal right now including normal visual acuity normal visual tran and eye exam no emergent medical intervention necessary. You have no risk factors for TIA or stroke and her symptoms today are not consistent with a stroke. You did describe some smudging which could have been a scotoma. Nonetheless we had a risk-benefit discussion regarding CT scans and with shared decision making opted not proceed with the in-depth workup. Please follow-up with Dr. Castro and [phone] for further eye evaluation. Return with any worsening of her symptoms. Clinical Impressions Clinical Impression: Scotoma, Blurred vision, right eye Print Language Print Language: Albanian Discharge ED Provider: Selma Mensah General Adult HPI General Chief complaint: Eye Problems Stated complaint: right eye blurry Time Seen by Provider: 11/21/24 16:48 Mode of Arrival: Ambulatory Source of Information: Patient Description of Symptoms (Recalled from ER Triage Doc. by RN): Pt presents for evaluation of blurred vision. Pt states it came on suddenly. Pt states she took a nap and it is slightly improved. Pt states she has pain to the right side of her head. History of Present Illness HPI narrative: Patient is a 29-year-old female presenting today with blurred vision of the right eye. States that she took a nap and it significantly improved. States that also when she wore her glasses that is improved. Does have a history of needing correctional lenses but typically does not wear them. Did not have any vision loss. Did not have any other associated neurologic symptoms. States it felt like there was a smudge. States that she never was able to not see at all just that it was a little bit blurry. Symptoms have almost completely resolved at this point. Related Data Previous Rx's ?Medication ?Instructions ?Recorded propranolol 60 mg capsule,24 60 mg PO DAILY #90 caps 09/21/24 hr,extended release rednzqsgxzstkgm-baxwjgurjsfbmqv-JZ 5 ml PO Q4H PRN sinus symptoms 11/02/24 2 mg-30 mg-10 mg/5 mL oral syrup #118 mL (Bromfed DM) doxycycline hyclate 100 mg capsule 100 mg PO BID 10 days #20 caps 11/02/24 lidocaine 5 % topical patch 1 patch topical DAILY #30 ea 11/02/24 prednisone 50 mg tablet 50 mg PO DAILY 5 days #5 tabs 11/02/24 Allergies Allergy/AdvReac Type Severity Reaction Status Date / Time No Known Allergies Allergy Verified 10/11/24 13:51 [facility] Disclaimer: The information contained in this section may have been updated after the patient was seen, as this information can be updated by other users. Medical History Depression Anxiety Pre-syncope Essential hypertension Eustachian tube dysfunction Tinnitus Surgical History No history of previous surgery Family History Other Cancer Coronary artery disease Diabetes Heart attack Hypertension Social History Smoking Status: Current every day smoker tobacco type: cigarettes packs per day: 1 alcohol intake: never substance use type: denies use and marijuana current occupational status: unemployed Travel in the last 8 weeks: None household members: children housing: apartment marital status: single number of children: 2 caffeine: Yes do you feel safe at home: Yes victim of physical abuse: No victim of emotional abuse: No victim of sexual abuse: No Have you lived/traveled outside US in past 30 days?: No Contact w/someone who lives/traveled outside US past 30 days?: No Exposure to someone with infectious disease in past 14 days?: No Do you have a fever (greater than 100.4 F or 38 C)?: No Have you tested positive for COVID-19: No Exposed to someone with COVID-19 in past 14 days?: No Do you have a sore throat?: No Do you have a cough?: No Do you have any weakness?: No Do you have any diarrhea?: No Are you experiencing any unusual bleeding?: No Do you have any muscle aches/pain?: No Do you have any abdominal pain?: No Are you experiencing loss of taste or smell?: No Other Medical History Have you received the Flu Vaccine for this season: No Have you received the Pneumonia Vaccine: No ROS Obtained: Yes All systems reviewed & no additional complaints except as documented Physical Exam General General appearance: alert and in no apparent distress Eye Eye exam: Present normal appearance, PERRL, EOMI and other (Visual acuity both eyes uncorrected 20/25, visual tran normal in both eyes); Absent scleral icterus, conjunctival redness, jaundice, conjunctival injection, discharge, nystagmus, miosis, mydriasis, periorbital swelling or periorbital tenderness Respiratory Respiratory exam: Present normal lung sounds bilaterally Cardiovascular Cardiovascular exam: Present regular rate Neurological Exam Neurological exam: Present alert, oriented X3, CN II-XII intact and normal gait; Absent motor sensory deficit or reflexes normal Medical Decision Making Medical Records Screening: Per USPSTF and CDC recommendations, given the prevalence of disease in our region, it is our hospital?s policy to screen for HIV and viral Hepatitis for all patients aged 18 and over and those with ongoing risk factors. [place] Inquiry Pt receiving controlled substance: No Vital Signs: 11/21/24 15:58 Temperature 98.2 F Temperature Source Oral Pulse Rate [Right] 70 Respiratory Rate 18 Blood Pressure [Right Arm] 111/67 Blood Pressure Mean [Right Arm] 81 Blood Pressure Source [Right Arm] Automatic Cuff Blood Pressure Position [Right Arm] Sitting 02 Sat by Pulse Oximetry 99 Oxygen Delivery Method Room Air Medical Decision Narrative: 29-year-old essentially asymptomatic at this point with a normal eye exam specifically visual acuity and visual tran who presented today with transient smudge in her visual tran. I showed her a picture of a scotoma and she stated this looks very similar to what she had. She does have a history of migraines but did not have a headache today. It is possible she did have a scotoma. TIA and stroke are very unlikely those were her main concerns as she googled her symptoms today. She did not have any transient monocular vision loss she did not have any floaters or anything concerning for significant posterior chamber abnormality such as retinal hemorrhage or detachment. Visual acuity is normal at the moment. I have advised that she return with any worsening or recurrence of her symptoms. 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 I have also advised that she wear her glasses as previously instructed. Critical Care Critical Care Time Critical Care Time: No
[2024-11-21 17:17] VITALS: BP 115/78; PULSE 81; RESP 19; TEMP 36.9; O2SAT 99
== END 2024-11-21 17:18 | disposition home or self-care (01) ==
PROVIDERS: Emergency Provider Student in an Organized Health Care Education/Training Program; PCP Internal Medicine Adolescent Medicine
DX: H53.411 Scotoma involving central area, right eye (principal); H53.8 Other visual disturbances
CPT/HCPCS: 99283

== ENCOUNTER 2025-04-18 16:10 | Outpatient (CLI) | payer MEDICAID, SELFPAY ==
--- OUTSIDE RECORDS SUMMARY | 2025-02-07 05:15 | XMS_ITS ---
Author Organization [facility] Address [address] [place] [address] Care Team Providers Care Kitchen Steward/Stewardess Name Role Phone Chin Rogers Primary Care Provider CHIN Rogers APRN Unavailable Unavailable Eunice Carrero Unavailable [phone] REASON FOR VISIT Back hurting Encounters Encounter Location Date Provider Diagnosis [facility] [address] [place], [place] [address] 02/07/2025 Eunice Carrero Plan Of Treatment No Information Progress Notes * Wilfrido RUBIOB:1995 (30 yo F)Acc No.[id number]:02/07/2025 Progress Notes Patient: Enedelia OLSON Provider: MAEVE Barton :1995 A ge:29 Y S ex:Female Date:02/07/2025 Address:[address] [id number] Pcp:Chin Rogers Subjective: * Chief Complaints: * 1 . Back hurting. * Medical History: Objective: * Vitals: Assessment: Plan: * Treatment: * * Electronic signature of Donna Carrero APRN on 04/19/2025 at 10:25 AM EDT Sign off status: Pending * Provider: MAEVE Barton Date: 0 02/07/2025 Generated for Fatoumata paulino/Angie/Marcelina on: 0 04/19/2025 10:25 AM EDT
--- OUTSIDE RECORDS SUMMARY | 2025-02-14 07:15 | XMS_ITS ---
Author Organization [facility] Address [address] [place] [address] Care Team Providers Care Ledge Man Name Role Phone Chin Rogers Primary Care Provider [phone] CHIN Rogers APRN Unavailable Unavailable REASON FOR VISIT Back Pain Encounters Encounter Location Date Provider Diagnosis [facility] [address] [place] [address] 02/14/2025 Chin Rogers Plan Of Treatment No Information Progress Notes * Wilfrido RUBIOB:1995 (30 yo F)Acc No.[id number]:02/14/2025 Progress Notes Patient: Enedelia OLSON Provider: Kamlesh Rogers APRN :1995 A ge:29 Y S ex:Female Date:02/14/2025 Address:[address] [id number] Subjective: * Chief Complaints: * 1 . Back Pain. * Medical History: Objective: * Vitals: Assessment: Plan: * Treatment: * * Electronic signature of Cammy Rogers APRN on 04/19/2025 at 10:24 AM EDT Sign off status: Pending * Provider: Kamlesh Rogers APRN Date: 0 02/14/2025 Generated for Fatoumata ng/Faxing/eTransmitting on: 0 04/19/2025 10:24 AM EDT
--- OUTSIDE RECORDS SUMMARY | 2025-02-16 10:15 | XMS_ITS ---
Author Organization [facility] Address [address] [place] [address] Care Team Providers Care Safety Compliance Specialist Name Role Phone Chin Rogers Primary Care Provider [phone] CHIN Rogers APRN Unavailable Unavailable REASON FOR VISIT Back pain Encounters Encounter Location Date Provider Diagnosis [facility] [address] [place] [address] 02/16/2025 Chin Rogers Plan Of Treatment No Information Progress Notes * Wilfrido RUBIOB:1995 (30 yo F)Acc No.[id number]:02/16/2025 Progress Notes Patient: Enedelia OLSON Provider: Kamlesh Rogers APRN :1995 A ge:29 Y S ex:Female Date:02/16/2025 Address:[address] [id number] Subjective: * Chief Complaints: * 1 . Back pain. * Medical History: Objective: * Vitals: Assessment: Plan: * Treatment: * * Electronic signature of Cammy Rogers APRN on 04/19/2025 at 10:25 AM EDT Sign off status: Pending * Provider: Kamlesh Rogers APRN Date: 0 02/16/2025 Generated for Fatoumata ng/Famarilyng/eTransmitting on: 0 04/19/2025 10:25 AM EDT
--- OUTSIDE RECORDS SUMMARY | 2025-02-20 10:45 | XMS_ITS ---
Author Organization [facility] Address [address] [place] [address] Care Team Providers Care Foundry Laborer Coreroom Name Role Phone Chin Rogers Primary Care Provider CHIN Rogers APRN Unavailable Unavailable Eunice Carrero Unavailable [phone] REASON FOR VISIT Back pain Encounters Encounter Location Date Provider Diagnosis [facility] [address] [place], [place] [address] 02/20/2025 Eunice Carrero Plan Of Treatment No Information Progress Notes * Wilfrido RUBIOB:1995 (30 yo F)Acc No.[id number]:02/20/2025 Progress Notes Patient: Enedelia OLSON Provider: MAEVE Barton :1995 A ge:29 Y S ex:Female Date:02/20/2025 Address:[address] [id number] Pcp:Chin Rogers Subjective: * Chief Complaints: * 1 . Back pain. * Medical History: Objective: * Vitals: Assessment: Plan: * Treatment: * * Electronic signature of Donna Carrero APRN on 04/19/2025 at 10:24 AM EDT Sign off status: Pending * Provider: MAEVE Barton Date: 0 02/20/2025 Generated for Fatoumata paulino/Angie/eTransmitting on: 0 04/19/2025 10:24 AM EDT
--- OUTSIDE RECORDS SUMMARY | 2025-02-21 07:45 | XMS_ITS ---
Author Organization [facility] Address [address] [place] [address] Care Team Providers Care Picker Tender Name Role Phone Chin Rogers Primary Care Provider CHIN Rogers APRN Unavailable Unavailable REASON FOR VISIT Back pain Encounters Encounter Location Date Provider Diagnosis [facility] [address] [place] [address] 02/21/2025 Chin Rogers Plan Of Treatment No Information Progress Notes * Wilfrido RUBIOB:1995 (30 yo F)Acc No.[id number]:02/21/2025 Progress Notes Patient: Enedelia OLSON Provider: Kamlesh Rogers APRN :1995 A ge:29 Y S ex:Female Date:02/21/2025 Address:[address] [id number] Subjective: * Chief Complaints: * 1 . Back pain. * Medical History: Objective: * Vitals: Assessment: Plan: * Treatment: * * Electronic signature of Cammy Rogers APRN on 04/19/2025 at 10:25 AM EDT Sign off status: Pending * Provider: Kamlesh Rogers APRN Date: 0 02/21/2025 Generated for Fatoumata ng/Faxing/eTransmitting on: 0 04/19/2025 10:25 AM EDT
--- OUTSIDE RECORDS SUMMARY | 2025-04-19 10:25 | XMS_ITS | Patient Health Record ---
Author Organization [facility] Address [address] [place] [address] Care Team Providers Care Plant Protection Superintendent Name Role Phone Chin Rogers Primary Care Provider [phone] CHIN Rogers APRN Unavailable Unavailable Pedro Rainey Unavailable [phone] Eunice Carrero Unavailable [phone] Migration, Provider Unavailable Unavailable Allergies No Known Allergies Results Component Value Reference Range Notes Rapid Strep Reviewed date:07/26/2024 01:31:05 PM Interpretation:Negative Performing Lab: Notes/Report: Negative Reason For Referral No Information Medications Medication SIG (Take, Route, Frequency, Duration) Notes Start Date End Date Status Propranolol HCl ER 60 MG 1 cap(s) orally twice a day Active Ciprofloxacin-dexAMETHasone 0.3-0.1 % 4 gtt in each affected ear 2 times a day; Duration: 7 days 10/17/2024 Active Levocetirizine Dihydrochloride 5 MG 1 tab(s) orally once a day (in the evening); Duration: 30 days 10/17/2024 Active Social History Tobacco Use: Social History Observation Description Date Details (start date - stop date) Current Smoker NA - NA Smoking: Question Answer Notes Are you a: current smoker How often do you smoke cigarettes? every day How many cigarettes a day do you smoke? 11-20 How soon after you wake up d o you smoke your first cigarette? 6-30 min Are you interested in quitting? Ready to quit Additional Findings: Tobacco User Modera te cigarette smoker (10-19 cigs/day) Problems Problem Type SNOMED Code ICD Code Onset Dates Problem Status W/U Status Risk Notes Problem Essential hypertension (65864709) Essential hypertension (I10) Active confirmed Problem Seasonal allergy (990879561) Seasonal allergies (J30.2) Active confirmed Problem Chronic serous otitis media (83252081) Left chronic serous otitis media (H65.22) Active confirmed Vital Signs Heart Rate 72 /min 10/17/2024 Temperature 98.1 degrees Fahrenheit 10/17/2024 Blood pressure diastolic 84 mm Hg 10/17/2024 Height 5 ft 4 in in 10/17/2024 Blood pressure systolic 126 mm Hg 10/17/2024 Weight 159 lbs 10/17/2024 BMI 27.29 kg/m2 10/17/2024 Encounters Encounter Location Date Provider Diagnosis [facility] [address] [place] [address] 11/12/2024 Provider Migration Seasonal allergies J30.2 and Acute otitis externa of right ear, unspecified type H60.501 [facility] [address] [place] [address] 04/19/2024 Chin McNees Skin lesion L98.9 and Dog bite, initial encounter W54.0XXA [facility] [address] [place] [address] 07/26/2024 Chin McNees Sore throat J02.9 ; Viral URI J06.9 and Non-recurrent acute serous otitis media of both ears H65.03 [facility] [address] [place] [address] 10/17/2024 Pedro Rainey Acute otitis externa of right ear, unspecified type H60.501 and Seasonal allergies J30.2 [facility] [address] [place] [address] 02/21/2025 Chin McNees Assessments Encounter Date Diagnosis (ICD Code) Assessment Notes Treatment Notes Treatment Clinical Notes Section Notes 04/19/2024 Skin lesion (ICD-10 - L98.9) Reassurance no signs of infection. Discussed wound care with mupirocin. Discussed return precautions. Recommend tetanus vaccine, patient is aware of risks and declines 04/19/2024 Dog bite, initial encounter (ICD-10 - W54.0XXA) 07/26/2024 Viral URI (ICD-10 - J06.9) Reassurance. Discussed the etiology & expected course of a viral URI and discussed the rationale for not prescribing antibiotics. Continue supportive care with PRN antipyretics, OTC cough/cold meds, nasal saline rinses, cough drops, and humidifier. Encourage PO hydration. Discussed the signs and symptoms of worsening condition and need for reassessment in clinic or ED. 07/26/2024 Sore throat (ICD-10 - J02.9) 10/17/2024 Seasonal allergies (ICD-10 - J30.2) mild bilateral TM effusions on exam. Counseled patient on starting OTC flonase daily and zyrtec daily for allergies. 10/17/2024 Acute otitis externa of right ear, unspecified type (ICD-10 - H60.501) right external ear canal w scabbing and surrounding erythema in inferior canal. will send ciprodex drops. 11/12/2024 Seasonal allergies (ICD-10 - J30.2) 11/12/2024 Acute otitis externa of right ear, unspecified type (ICD-10 - H60.501) 07/26/2024 Non-recurrent acute serous otitis media of both ears (ICD-10 - H65.03) Plan Of Treatment No Information Insurance Providers Payer Name Payer Address Payer Phone Subscriber Number Group Number Insured Name Patient Relationship to Insured Coverage Start Date Coverage End Date [facility] MEDICAID [address] [address] [place] [address] [id number] Enedelia Rubi Self - patient is the insured Medical (General) History Medical History History ICD Code Anxiety/Depression Surgical History Surgery Date(Month/Year) oral surgery 2010 Hospitalization History Reason Date(Month/Year) child- 2020 kidney infection 2013
--- OUTSIDE RECORDS SUMMARY | 2025-04-19 10:25 | XMS_ITS | Clinical Summary ---
Author Organization [facility] Address [address] [facility] [address] [place] [address] Phone Care Team Providers Care Convertible Sofa Bedspring Tester Name Role Phone Unavailable Unavailable Conditions or Problems No information available. Medications No information available. Medications Administered No information available. Allergies, Adverse Reactions, Alerts No information available. Results No information available. Plan of Care No information available. Procedures No information available. Vital Signs No information available. Immunizations No information available. Advance Directives No information available.
--- OUTSIDE RECORDS SUMMARY | 2025-04-19 10:25 | XMS_ITS | Patient Health Record ---
[facility] Address [address] [place] [id number] Care Team Providers Care Braille Operator Name Role Phone Selma Bingham Primary Care Provider [phone] Reason For Referral No Information Medications Medication SIG (Take, Route, Frequency, Duration) Notes Start Date End Date Status Cetirizine HCl 10 MG 1 tab(s) orally onc e a day 02/06/2020 Not-Taking Sertraline HCl 25 MG 1 tab(s) orally onc e a day; Duration: 30 day(s) 02/06/2020 Not-Taking Fluticasone Propionate 50 MCG/ACT 1 spray in each nostril once a day; Duration: 30 days 02/06/2020 Not-Taking Problems Problem Type SNOMED Code ICD Code Onset Dates Problem Status W/U Status Risk Notes Problem Generalized anxiety disorder (77763898) Generalized anxiety disorder (F41.1) Active confirmed Problem Dysfunction of both eustachian tubes (046921151941795 0) Dysfunction of both eustachian tubes (H69.83) Active confirmed Problem Anxiety about health (905428400) Anxiety about health (F41.8) Active confirmed Plan Of Treatment No Information Insurance Providers Payer Name Payer Address Payer Phone Subscriber Number Group Number Insured Name Patient Relationship to Insured Coverage Start Date Coverage End Date [facility] [address] [place] [address] [phone] [id number] GALILEO RUBI Self - patient is the insured Medical (General) History Surgical History Surgery Date(Month/Year) Hospitalization History Reason Date(Month/Year) Darryl Maloney 01/16/20
--- OUTSIDE RECORDS SUMMARY | 2025-04-19 10:25 | XMS_ITS | Clinical Summary ---
Author Organization [facility] Address [address] [place] [address] Care Team Providers Care Personnel Monitor Name Role Phone Pedro Rainey MD Primary Care Provider + [phone] Social History Tobacco Use Types Packs/Day Years Used Date Smoking Tobacco: Never Assessed Comments Unknown Sex and Gender Information Value Date Recorded Sex Assigned at Not on file Legal Sex Female 8:05 PM EDT Gender Identity Not on file Sexual Orientation Not on file Plan of Treatment Health Maintenance Due Date Last Done Comments [facility]-Depression Screening 1995 [facility]-/Child/Adol SDOH Screenings 1995 [facility]-Varicella Vaccines (1 of 2 - 13+ 2-dose series) 2007 HPV Vaccines (3 - 3-dose series) 04/09/2011 01/15/2011, 03/08/2010 [facility]- SDOH Screenings 2012 [facility]-Adult SDOH Screenings 2012 [facility]-DTaP,Tdap,and Td Vaccines (1 - Tdap) 2013 [facility]-Hepatitis B Vaccines (1 of 3 - 19+ 3-dose series) 2013 [facility]-Pap Smear 2015 [facility]-Cervical Cancer Screening 2024 [facility]-HPV/Cotest 2024 [id number]-09 Vaccine (1 - 2023-25 season) 2025 [facility]-Influenza Vaccine (#1) 2025 [facility]-Zoster Vaccines (1 of 2) 2044 [facility]-HIB Vaccines Aged Out No longer e ligible based on patient's age to complete this topic [facility]-Hepatitis A Vaccines Aged Out No longer eligible based on patient's age to complete this topic [facility]-IPV Vaccines Aged Out No longer e ligible based on patient's age to complete this topic [facility]-Pneumococcal Vaccine: Pediatrics (0 to 5 Years) and At-Risk Patients (6 to 49 Years) Aged Out No longer eligible b ased on patient's age to complete this topic [facility]-Rotavirus Vaccines Aged Out No lo nger eligible based on patient's age to complete this topic Insurance [place] [id number] [facility] TouchMail [facility] MEDICAID Care Teams Personnel Monitor Relationship Specialty Start Date End Date Pedro Rainey MD [address] [place] [address] PCP - General Internal Medicine 07/18/22
== END 2025-04-18 23:59 | disposition home or self-care (01) ==
LOC: LAB.DROPOF 04-19 10:15
PROVIDERS: PCP Nurse Practitioner Obstetrics & Gynecology; Visit Provider Nurse Practitioner Obstetrics & Gynecology
DX: N89.8 Other specified noninflammatory disorders of vagina (principal)
CPT/HCPCS: 87491; 87529; 87591; 87661; 87798; 87801